=== PATIENT | female | born 1995 | race Caucasian/White ===

== ENCOUNTER 2020-11-14 17:16 | Outpatient (REF) | payer MEDICARE, SELFPAY | END 2020-11-14 17:17 | disposition home or self-care (01) | LOC: HO.LAB 17:16 | PROVIDERS: Visit Provider Nurse Practitioner Family | DX: R30.0 Dysuria (principal) | CPT/HCPCS: 87086 ==

== ENCOUNTER 2021-07-02 15:18 | Outpatient (REF) | payer OTHER, SELFPAY ==
[2021-07-02 16:32] LABS: Hematocrit 38.9 % (37.0-47.0); Hemoglobin 12.9 g/dl (12.0-16.0); Mean Corpuscular HGB Conc 33.2 g/dl (31.0-35.0); Mean Corpuscular Hemoglobin 31.3 pg (27.0-33.0); Mean Corpuscular Volume 94.4 fL (80.0-98.0); Mean Platelet Volume 10.6 fL (9.4-12.3); Platelet Count 154 X10*3/uL (160-400); Red Blood Count 4.12 X10*6/uL (4.20-5.50); Red Cell Distribution Width 12.6 % (11.0-16.0); White Blood Count 3.4 X10*3/uL (4.8-10.8)
[2021-07-02 16:58] LABS: Alanine Aminotransferase 52 U/L (0-31); Albumin Level 4.4 g/dL (3.5-5.0); Alkaline Phosphatase 89 U/L (39-117); Anion Gap 11 (12-20); Aspartate Amino Transferase 58 U/L (5-31); Blood Urea Nitrogen 11 mg/dL (9-16); Calcium 9.1 mg/dL (8.4-10.2); Carbon Dioxide 26 mmol/L (22-29); Chloride 103 mmol/L (96-108); Estimated Glomerular Filt Rate > 60; Glucose Random 98 mg/dL (60-115); Potassium 3.9 mmol/L (3.3-5.1); Sodium 136 mmol/L (135-145); Total Protein 7.8 g/dL (6.5-8.0)
[2021-07-02 17:10] LABS: Bilirubin Direct < 0.2 mg/dL (0.0-0.5); Bilirubin Total 0.2 mg/dL (0.0-1.0)
== END 2021-07-02 15:19 | disposition home or self-care (01) ==
LOC: HO.HMGCLDS 15:18
PROVIDERS: PCP Internal Medicine; Visit Provider Internal Medicine
DX: N39.0 Urinary tract infection, site not specified (principal); R30.0 Dysuria
CPT/HCPCS: 36415; 80048; 80076; 85027

== ENCOUNTER 2021-12-14 12:54 | Outpatient (REF) | payer OTHER, SELFPAY ==
[2021-12-14 17:52] LABS: CT PCR NOT DETECTED (Not Detect.); NG PCR NOT DETECTED (Not Detect.)
[2021-12-15 15:13] LABS: BV Int Neg Control Negative (Negative); BV Int Pos Control Positive (Positive)
== END 2021-12-14 12:55 | disposition home or self-care (01) ==
LOC: HO.LNP 12:54
PROVIDERS: Visit Provider Internal Medicine
DX: N89.8 Other specified noninflammatory disorders of vagina (principal); G40.909 Epilepsy, unspecified, not intractable, without status epilepticus; Z72.51 High risk heterosexual behavior; Z11.3 Encounter for screening for infections with a predominantly sexual mode of transmission; Z11.8 Encounter for screening for other infectious and parasitic diseases
CPT/HCPCS: 87480; 87491; 87510; 87591; 87660

== ENCOUNTER 2022-02-12 13:05 | Outpatient (REF) | payer OTHER, SELFPAY ==
[2022-02-12 18:42] LABS: CT PCR NOT DETECTED (Not Detect.); NG PCR NOT DETECTED (Not Detect.)
[2022-02-13 07:17] LABS: Syphilis Screen Nonreactive (Nonreactive)
[2022-02-13 07:58] LABS: HBS Num1 3.56 mIU/mL (0-7.99); HBc Num1 0.08 S/CO (0.00-0.79); HBsAGNum1 0.64 S/CO (0.00-0.99); HIV AB/AG Nonreactive (Nonreactive); HIV Num 1 0.06 S/CO (0.00-0.99); Hepatitis A Antibody IgM 0.22 Index (0-0.79); Hepatitis B Core Antibody Nonreactive (Nonreactive); Hepatitis B Surface Antigen Negative (Negative); ~HepC Num1 0.07 S/CO (0.00-0.79); ~Hepatitis A Antibody IgM Nonreactive (Nonreactive); ~Hepatitis B Surface Antibody NONREACTIVE (Nonreactive); ~Hepatitis C Antibody Nonreactive (Nonreactive)
[2022-02-13 13:31] LABS: BV Int Neg Control Negative (Negative); BV Int Pos Control Positive (Positive)
[2022-02-14 09:02] LABS: Herpes Simplex Type 1 IgG >58.00 index; Herpes Simplex Type 2 IgG <0.90 index
== END 2022-02-12 13:06 | disposition home or self-care (01) ==
LOC: HO.HMGCLDS 13:05
PROVIDERS: PCP Internal Medicine; Visit Provider Internal Medicine
DX: Z11.4 Encounter for screening for human immunodeficiency virus [HIV] (principal); Z11.3 Encounter for screening for infections with a predominantly sexual mode of transmission; N89.8 Other specified noninflammatory disorders of vagina; Z20.2 Contact with and (suspected) exposure to infections with a predominantly sexual mode of transmission; Z72.51 High risk heterosexual behavior
CPT/HCPCS: 36415; 86695; 86696; 86704; 86706; 86709; 86780; 86803; 87340; 87389; 87480; 87491; 87510; 87591; 87660

== ENCOUNTER 2022-03-23 13:23 | Outpatient (REF) | payer OTHER, SELFPAY ==
[2022-03-25 08:21] LABS: Syphilis Screen Nonreactive (Nonreactive)
[2022-03-25 08:59] LABS: HIV AB/AG Nonreactive (Nonreactive); HIV Num 1 0.05 S/CO (0.00-0.99)
== END 2022-03-23 13:24 | disposition home or self-care (01) ==
LOC: HO.HMGCLDS 13:23
PROVIDERS: PCP Internal Medicine; Visit Provider Physician Assistant
DX: N30.01 Acute cystitis with hematuria (principal); Z20.2 Contact with and (suspected) exposure to infections with a predominantly sexual mode of transmission
CPT/HCPCS: 36415; 86780; 87086; 87186; 87389

== ENCOUNTER → 2022-06-19 13:20 | Outpatient (BNVA) | payer OTHER, SELFPAY | PROVIDERS: PCP Internal Medicine; Visit Provider Surgery | DX: K64.9 Unspecified hemorrhoids (principal) | CPT/HCPCS: 46600; 99202 ==

== ENCOUNTER 2022-07-08 16:57 | Outpatient (REF) | payer OTHER, SELFPAY ==
[2022-07-08 18:00] LABS: Appearance Urine Turbid; Color Urine Dark Yellow; Glucose Urine UA Negative (Negative); Leukocyte Esterase Urine Trace (Negative); Nitrite Urine Negative (Negative); Specific Gravity - Urine 1.025 (1.005-1.025); UMIC TRIGGER UACC YES; Urine Blood Negative (Negative); Urine Ketones Trace mg/dL (Negative); Urine Protein 30 (1+) mg/dL (Neg-Trace)
[2022-07-08 18:26] LABS: Bacteria Urine 1+ (None Seen); Hyaline Casts Urine 0-2 /LPF (0-2); RBC Urine 0-2 /HPF (0-2); WBC Urine 0-5 /HPF (0-5)
[2022-07-09 05:35] LABS: CT PCR NOT DETECTED (Not Detect.); NG PCR NOT DETECTED (Not Detect.)
[2022-07-09 12:31] LABS: BV Int Neg Control Negative (Negative); BV Int Pos Control Positive (Positive)
== END 2022-07-08 16:58 | disposition home or self-care (01) ==
LOC: HO.LNP 16:57
PROVIDERS: Internal Medicine Medical Oncology; Physician Assistant; Visit Provider Nurse Practitioner Family
DX: N30.01 Acute cystitis with hematuria (principal); Z20.2 Contact with and (suspected) exposure to infections with a predominantly sexual mode of transmission
CPT/HCPCS: 0353U; 81001; 81003; 87480; 87510; 87660

== ENCOUNTER 2022-10-04 11:54 | Outpatient (REF) | payer OTHER, SELFPAY ==
[2022-10-04 13:53] LABS: MANUAL DIFF FLAG NO
[2022-10-04 14:05] LABS: Basophils Percent Auto 0.4 % (0-2); Eosinophils Absolute Auto 0.1 X10*3/uL (0.0-0.4); Hematocrit 39.7 % (37.0-47.0); Hemoglobin 13.3 g/dl (12.0-16.0); Imm Gran Abs Auto 0.04 X10*3/uL (0.00-0.03); Imm Gran Pct Auto 0.4 % (0.0-0.4); Lymphocytes Absolute Auto 2.1 X10*3/uL (1.2-4.9); Mean Corpuscular HGB Conc 33.5 g/dl (31.0-35.0); Mean Corpuscular Hemoglobin 31.5 pg (27.0-33.0); Mean Corpuscular Volume 94.1 fL (80.0-98.0); Mean Platelet Volume 10.7 fL (9.4-12.3); Monocytes Absolute Auto 0.6 X10*3/uL (0.1-1.2); Monocytes Percent Auto 6.1 % (2-11); Neutrophils Absolute Auto 6.4 x10*3/uL (2.0-8.3); Neutrophils Percent Auto 69.1 % (45-73); Platelet Count 192 X10*3/uL (160-400); Red Blood Count 4.22 X10*6/uL (4.20-5.50); Red Cell Distribution Width 12.3 % (11.0-16.0); White Blood Count 9.3 X10*3/uL (4.8-10.8)
[2022-10-04 14:22] LABS: Alanine Aminotransferase 11 U/L (0-31); Albumin Level 4.2 g/dL (3.5-5.0); Alkaline Phosphatase 84 U/L (39-117); Anion Gap 14 (12-20); Aspartate Amino Transferase 19 U/L (5-31); Bilirubin Total 0.3 mg/dL (0.0-1.0); Blood Urea Nitrogen 10 mg/dL (9-16); Carbon Dioxide 26 mmol/L (22-29); Chloride 101 mmol/L (96-108); Estimated Glomerular Filt Rate > 60; Glucose Random 127 mg/dL (60-115); Potassium 3.5 mmol/L (3.3-5.1); Sodium 137 mmol/L (135-145); Total Protein 7.3 g/dL (6.5-8.0)
[2022-10-04 14:39] LABS: TSH reflex Free T4 1.59 uIU/mL (0.32-4.0)
== END 2022-10-04 11:55 | disposition home or self-care (01) ==
LOC: HO.HMGCLDS 11:54
PROVIDERS: PCP Internal Medicine; Visit Provider Internal Medicine
DX: D69.6 Thrombocytopenia, unspecified (principal)
CPT/HCPCS: 36415; 80053; 84443; 85025

== ENCOUNTER 2022-11-29 09:05 | Outpatient (AMB) | payer OTHER, SELFPAY ==
[2022-11-29 09:11] VITALS: BP 128/76; PULSE 107; O2SAT 97; BMI 22.5
--- NOTE | 2022-11-29 09:11 | MHC.PC.OV ---
Vital Signs 11/29/22 09:11 Height 5 ft 3 in Weight 127 lb 2 oz BMI 22.5 BP 128/76 Blood Pressure Location Lt brachial Position Sitting Pulse 107 H Pulse Source Pulse Oximeter Pulse Oximetry (%) 97 Oxygen Delivery Method Room Air Intake Visit Reasons: per [place] Allergies prochlorperazine [From COMPAZINE] Allergy (Severe, Verified 11/29/22 09:12) AGITATION tramadol [TRAMADOL] Allergy (Intermediate, Verified 11/29/22 09:12) SEIZURES Compazine Allergy (Unknown, Verified 11/29/22 09:12) agitation, jittery Medication List - Last Reconciled 11/29/22 by Kalyani Benton MD clonazepam 0.5 mg PO BID 30 days methadone 200 mg PO DAILY ondansetron HCl 4 mg PO DAILY PRN quetiapine (Seroquel) 300 mg PO NEEDED Tobacco use date assessed: 11/29/22 Dental Screening Dental Screen Date: 11/29/22 Did you have a dental visit in the last 12 months?: Yes Did you have a dental problem in the last 6 months where you did not have access to dental care?: No Was dental information given to patient?: No HPI per [place] HPI Details Patient is 27-year-old female who was in [facility] early this month when she presented with fever sore throat feeling sick, generalize body malaise fatigue and fever of 102 at home. In emergency room she was afebrile with blood pressure of 105/86 WBC count of 20.1 lactate 2.8 which improved when repeated and mononucleosis antibody was positive Patient was treated with ceftriaxone Toradol any band Zofran and IV fluids along with Dilaudid and Haldol She was also given Solu-Medrol for tonsillar inflammation with good response She was also found to be positive for Streptococcus pharyngitis and was discharged on penicillin Her labs showed hemoglobin of 12.2 electrolytes were within normal range at discharge creatinine of 0.7 Albumin 4.1 Alk phosphatase is 87 lactate of [address] scan of abdomen and pelvis Which showed no acute intra-abdominal or intrapelvic process Patient is feeling back to her baseline at this time she is eating fine there is no nausea vomiting no abdominal pain there is no pain in her throat. On examination she does have enlarged tonsils which is a baseline for the patient. She is also due for her anxiety medications which I have sent for another month. Patient will return next month for her refill. [facility] Medical History Anxiety Depression Endometriosis determined by laparoscopy Fibromyalgia Methadone maintenance therapy patient Seizures Sleep apnea Suicidal ideation Tachycardia Surgical History History of appendectomy History of esophagogastroduodenoscopy (EGD) History of laparoscopy Family History Father Substance use disorder Mental health disorder Mother Fibromyalgia Herniation of intervertebral disc of thoracic region Endometriosis Social History Household Members Other:: mother Housing: Apartment Are you a primary director career to a significant other at home: No Do you presently have visiting nurse or other home services: No Alcohol intake: current Alcohol intake frequency: does not drink Patient Tobacco Use Status: Current someday Tobacco user Tobacco use type: Cigarette Cigarettes Per Day: 2 Years Smoked: 10 years Packs per year/per ci.00 e-Cigarette/Vaping Use: Currently Using service: No Current occupational status: unemployed and disabled Cognitive needs: No Hearing needs: No Vision needs: No Questionnaire Thrive Questionnaire Date Thrive assessed: 07/18/21 AUDIT C Alcohol Use Questionnaire (AUDIT-C) 1. How often do you have a drink containing alcohol?: Never 3. How often do you have six or more drinks on one occasion?: Never Total Score: 0 Score Reviewed/Action Taken: Yes SHEFALI-7 AMB Questionnaire SHEFALI-7 Date SHEFALI - 7 assessed: 09/04/22 Source: Developed by Drs. Jared Canela, Ayesha Cat, David Pedro and colleagues, with an educational adriel from [employer]. Review of Systems Const Denies chills and Denies fever(s) ENT Denies epistaxis and Denies nasal discharge Card Denies chest pain Resp Denies chest congestion, Denies cough and Denies hemoptysis GI Denies diarrhea and Denies nausea Skin/Breast Denies rash Neuro Reports no additional complaints Psych Reports no additional complaints Endo Reports no additional complaints Physical exam (Primary Care) Vital Signs: Last Vital Signs Pulse 107 H 11/29/22 09:11 BP 128/76 11/29/22 09:11 Pulse Ox 97 11/29/22 09:11 Oxygen Delivery Method Room Air 11/29/22 09:11 BMI result Body Mass Index 22.5 Tobacco/Smoking Status: Tobacco use Status Tobacco use date assessed 11/29/22 11/29/22 09:12 Patient Tobacco Use Status Current someday Tobacco 11/29/22 09:12 Tobacco use type Cigarette 11/29/22 09:12 e-Cigarette/Vaping Use Currently Using 11/29/22 09:12 Thrive Assessment: Date of Thrive Assessment Date Thrive assessed 07/18/21 11/29/22 09:12 Const General: cooperative, comfortable and no acute distress Orientation/consciousness: patient oriented x3 HENMT Head: Yes normocephalic Eyes General: appearance normal, both eyes and all related structures Neck Neck: Yes supple Resp Effort & Inspection: normal respiratory effort, no cough and no stridor Cardio Rhythm: regular rhythm Heart sounds: S1 normal heart sound present and S2 normal heart sound present Skin General skin exam: turgor normal Neuro General: patient oriented x3, tone normal and moves all extremities Extrem Right lower extremity: no edema Left lower extremity: no edema Assessment and Plan Assessment & Plan (1) Hospital discharge follow-up: Code(s): Z09 - Encounter for follow-up examination after completed treatment for conditions other than malignant neoplasm (2) Mononucleosis: Code(s): B27.90 - Infectious mononucleosis, unspecified without complication (3) Methadone dependence: Code(s): F11.20 - Opioid dependence, uncomplicated (4) Anxiety, generalized: Code(s): F41.1 - Generalized anxiety disorder (5) Recurrent major depression-severe: Code(s): F33.2 - Major depressive disorder, recurrent severe without psychotic features Qualifiers: Psychotic features: without psychotic features Qualified Code(s): F33.2 - Major depressive disorder, recurrent severe without psychotic features Plan Patient is 27-year-old female who was in [facility] early this month when she presented with fever sore throat feeling sick, generalize body malaise fatigue and fever of 102 at home. In emergency room she was afebrile with blood pressure of 105/86 WBC count of 20.1 lactate 2.8 which improved when repeated and mononucleosis antibody was positive Patient was treated with ceftriaxone Toradol any band Zofran and IV fluids along with Dilaudid and Haldol She was also given Solu-Medrol for tonsillar inflammation with good response She was also found to be positive for Streptococcus pharyngitis and was discharged on penicillin Her labs showed hemoglobin of 12.2 electrolytes were within normal range at discharge creatinine of 0.7 Albumin 4.1 Alk phosphatase is 87 lactate of [address] scan of abdomen and pelvis Which showed no acute intra-abdominal or intrapelvic process Patient is feeling back to her baseline at this time she is eating fine there is no nausea vomiting no abdominal pain there is no pain in her throat. On examination she does have enlarged tonsils which is a baseline for the patient. She is also due for her anxiety medications which I have sent for another month. Patient will return next month for her refill. Medications: Refilled clonazepam administer 30 minutes before bedtime 0.5 mg PO BID 60 tabs 0RF 30 days Kalyani Benton MD Discontinued ondansetron HCl 4 mg PO ONCE PRN 90 tabs 0RF nausea and vomiting 90 days R11.0 - Nausea Hannah Paul RN quetiapine (Seroquel) 300 mg PO DAILY 30 tabs 0RF 30 days Hannah Paul RN Coding Level of Care Code Est Pt Level 4 (50214) Diagnoses Hospital discharge follow-up Z09 Mononucleosis B27.90 Methadone dependence F11.20 Anxiety, generalized F41.1 Recurrent major depression-severe F33.2 Psychotic features: without psychotic features
== END 2022-11-29 10:06 | disposition home or self-care (01) ==
PROVIDERS: PCP Internal Medicine; Visit Provider Internal Medicine
DX: B27.90 Infectious mononucleosis, unspecified without complication (principal); F11.20 Opioid dependence, uncomplicated; F33.2 Major depressive disorder, recurrent severe without psychotic features; Z09 Encounter for follow-up examination after completed treatment for conditions other than malignant neoplasm; F41.1 Generalized anxiety disorder
CPT/HCPCS: 99214

== ENCOUNTER 2022-12-27 11:24 | Outpatient (AMB) | payer OTHER, SELFPAY ==
--- NOTE | 2022-12-27 11:31 | A.OFFPC_ITS ---
Vital Signs 12/27/22 11:33 Height 5 ft 3 in Weight 131 lb 2 oz BMI 23.2 BP 110/74 Blood Pressure Location Lt brachial Position Sitting Pulse 100 Pulse Source Pulse Oximeter Pulse Oximetry (%) 97 Oxygen Delivery Method Room Air Intake Visit Reasons: per [place] Allergies prochlorperazine [From COMPAZINE] Allergy (Severe, Verified 12/27/22 11:31) AGITATION tramadol [TRAMADOL] Allergy (Intermediate, Verified 12/27/22 11:31) SEIZURES Compazine Allergy (Unknown, Verified 12/27/22 11:31) agitation, jittery Medication List - Last Reconciled 12/27/22 by Kalyani Benton MD clonazepam 0.5 mg PO BID 30 days methadone 200 mg PO DAILY quetiapine (Seroquel) 300 mg PO NEEDED Tobacco use date assessed: 12/27/22 Dental Screening Dental Screen Date: 12/27/22 Did you have a dental visit in the last 12 months?: Yes Did you have a dental problem in the last 6 months where you did not have access to dental care?: No Was dental information given to patient?: No HPI per ak HPI Details Patient is 27-year-old female Patient is 6 weeks We discussed the side effect of Seroquel patient has cut down the dose to 100 mg She is also taking clonazepam only as needed now. She has OBGYN appointment coming up at [facility] next month. Patient have severe panic anxiety disorder she is already started to feel anxious by cutting the dose. Patient will talk to the OBGYN and need to get established with professor of kinesiology who specializes in medication management in . I have sent 100 mg of Seroquel and clonazepam 0.5 mg only 1 a day as needed. [facility] Medical History Anxiety Depression Endometriosis determined by laparoscopy Fibromyalgia Methadone maintenance therapy patient Seizures Sleep apnea Suicidal ideation Tachycardia Surgical History History of appendectomy History of esophagogastroduodenoscopy (EGD) History of laparoscopy Family History Father Substance use disorder Mental health disorder Mother Fibromyalgia Herniation of intervertebral disc of thoracic region Endometriosis Social History Household Members Other:: mother Housing: Apartment Are you a primary emergency care attendant to a significant other at home: No Do you presently have visiting nurse or other home services: No Alcohol intake: current Alcohol intake frequency: does not drink Patient Tobacco Use Status: Former Tobacco user Quit Date: 2021 Tobacco use type: Cigarette Cigarettes Per Day: 2 Years Smoked: 10 years e-Cigarette/Vaping Use: Currently Using service: No Current occupational status: unemployed and disabled Cognitive needs: No Hearing needs: No Vision needs: No Questionnaire Thrive Questionnaire Date Thrive assessed: 07/18/21 AUDIT C Alcohol Use Questionnaire (AUDIT-C) 1. How often do you have a drink containing alcohol?: Never 3. How often do you have six or more drinks on one occasion?: Never Total Score: 0 Score Reviewed/Action Taken: Yes SHEFALI-7 AMB Questionnaire SHEFALI-7 Date SHEFALI - 7 assessed: 09/04/22 Source: Developed by Drs. Jared Canela, Ayesha Cat, David Pedro and colleagues, with an educational adriel from [employer]. Review of Systems Const Denies chills and Denies fever(s) ENT Denies epistaxis and Denies nasal discharge Card Denies chest pain Resp Denies chest congestion, Denies cough and Denies hemoptysis GI Denies diarrhea and Denies nausea Skin/Breast Denies rash Neuro Reports no additional complaints Psych Reports no additional complaints Endo Reports no additional complaints Physical exam (Primary Care) Vital Signs: Last Vital Signs Pulse 100 12/27/22 11:33 BP 110/74 12/27/22 11:33 Pulse Ox 97 12/27/22 11:33 Oxygen Delivery Method Room Air 12/27/22 11:33 BMI result Body Mass Index 23.2 Tobacco/Smoking Status: Tobacco use Status Tobacco use date assessed 12/27/22 12/27/22 11:32 Patient Tobacco Use Status Former Tobacco user 12/27/22 11:32 Tobacco use type Cigarette 12/27/22 11:32 e-Cigarette/Vaping Use Currently Using 12/27/22 11:32 Thrive Assessment: Date of Thrive Assessment Date Thrive assessed 07/18/21 12/27/22 11:32 Const General: cooperative, comfortable and no acute distress Orientation/consciousness: patient oriented x3 HENMT Head: Yes normocephalic Eyes General: appearance normal, both eyes and all related structures Neck Neck: Yes supple Resp Effort & Inspection: normal respiratory effort, no cough and no stridor Cardio Rhythm: regular rhythm Heart sounds: S1 normal heart sound present and S2 normal heart sound present Skin General skin exam: turgor normal Neuro General: patient oriented x3, tone normal and moves all extremities Extrem Right lower extremity: no edema Left lower extremity: no edema Assessment and Plan Assessment & Plan (1) Methadone dependence: Code(s): F11.20 - Opioid dependence, uncomplicated (2) Anxiety, generalized: Code(s): F41.1 - Generalized anxiety disorder (3) Recurrent major depression-severe: Code(s): F33.2 - Major depressive disorder, recurrent severe without psychotic features Qualifiers: Psychotic features: without psychotic features Qualified Code(s): F33.2 - Major depressive disorder, recurrent severe without psychotic features (4) : Code(s): Z34.90 - Encounter for supervision of normal , unspecified, unspecified trimester Plan Patient is 27-year-old female Patient is 6 weeks We discussed the side effect of Seroquel patient has cut down the dose to 100 mg She is also taking clonazepam only as needed now. She has OBGYN appointment coming up at [facility] next month. Patient have severe panic anxiety disorder she is already started to feel anxious by cutting the dose. Patient will talk to the OBGYN and need to get established with professor of kinesiology who specializes in medication management in . I have sent 100 mg of Seroquel and clonazepam 0.5 mg only 1 a day as needed. Medications: New quetiapine (Seroquel) 100 mg PO BEDTIME 30 tabs 0RF Kalyani Benton MD Changed From clonazepam administer 30 minutes before bedtime 0.5 mg PO BID 30 days 60 tabs 0RF To clonazepam 0.5 mg PO ONCE PRN 30 tabs 0RF anxiety 30 days Kalyani Benton MD Discontinued ondansetron HCl 4 mg PO ONCE 90 days PRN 90 tabs 0RF nausea and vomiting R11.0 - Nausea quetiapine (Seroquel) 300 mg PO DAILY 30 tabs 0RF 30 days Hannah Paul RN Coding Level of Care Code Est Pt Level 4 (51774) Diagnoses Methadone dependence F11.20 Anxiety, generalized F41.1 Recurrent major depression-severe F33.2 Psychotic features: without psychotic features Z34.90
[2022-12-27 11:33] VITALS: BP 110/74; PULSE 100; O2SAT 97; BMI 23.2
== END 2022-12-27 12:07 | disposition home or self-care (01) ==
PROVIDERS: PCP Internal Medicine; Visit Provider Internal Medicine
DX: F11.20 Opioid dependence, uncomplicated (principal); F41.1 Generalized anxiety disorder; F33.2 Major depressive disorder, recurrent severe without psychotic features; Z33.1 Pregnant state, incidental
CPT/HCPCS: 99214

== ENCOUNTER 2023-01-28 09:48 | Outpatient (AMB) | payer OTHER, SELFPAY ==
--- NOTE | 2023-01-28 09:51 | A.OFFPC_ITS ---
Vital Signs 01/28/23 09:54 Height 5 ft 3 in Weight 132 lb 2 oz BMI 23.4 BP 116/72 Blood Pressure Location Lt brachial Position Sitting Pulse 100 Pulse Source Pulse Oximeter Pulse Oximetry (%) 99 Oxygen Delivery Method Room Air Intake Visit Reasons: Per [place] Allergies prochlorperazine [From COMPAZINE] Allergy (Severe, Verified 01/28/23 09:55) AGITATION tramadol [TRAMADOL] Allergy (Intermediate, Verified 01/28/23 09:55) SEIZURES Compazine Allergy (Unknown, Verified 01/28/23 09:55) agitation, jittery Medication List - Last Reconciled 01/28/23 by Kalyani Benton MD clonazepam 0.5 mg PO ONCE PRN 30 days methadone 200 mg PO DAILY quetiapine (Seroquel) 100 mg PO BEDTIME Tobacco use date assessed: 01/28/23 Dental Screening Dental Screen Date: 01/28/23 Did you have a dental visit in the last 12 months?: Yes Did you have a dental problem in the last 6 months where you did not have access to dental care?: No Was dental information given to patient?: Patient has dentist HPI Per [place] HPI Details Patient is 27-year-old female, she is 10 weeks and is established with OBGYN. She came in today to discuss on going treatment for her severe depression and anxiety Patient says that she discussed with OBGYN and they are referring her to a specialist who deals with these medications during . She was also discussed side effect of this medication on the fetus. Patient says that she was told that it will be better if she stays on the medication if she feels stable depression [place]. Patient would like to continue medication until she get established with new provider who can monitor the side effect of these medication on the fetus. She said that she will discuss with them if they can continue the prescription otherwise she will continue coming here monthly. She is on Seroquel 200 mg and clonazepam 0.5 mg b.i.d.. Script sent. Patient is to follow-up in 1 month [facility] Medical History Tachycardia Seizures Sleep apnea Depression Fibromyalgia Suicidal ideation Methadone maintenance therapy patient Anxiety Endometriosis determined by laparoscopy Surgical History History of esophagogastroduodenoscopy (EGD) History of appendectomy History of laparoscopy Family History Father Substance use disorder Mental health disorder Mother Fibromyalgia Herniation of intervertebral disc of thoracic region Endometriosis Social History Household Members Other:: mother Housing: Apartment Are you a primary primary health care nurse to a significant other at home: No Do you presently have visiting nurse or other home services: No Alcohol intake: current Alcohol intake frequency: does not drink Patient Tobacco Use Status: Former Tobacco user Quit Date: 2021 Tobacco use type: Cigarette Cigarettes Per Day: 2 Years Smoked: 10 years e-Cigarette/Vaping Use: Currently Using service: No Current occupational status: unemployed and disabled Cognitive needs: No Hearing needs: No Vision needs: No Questionnaire PHQ-9 Over the last 2 weeks, how often have you been bothered by any of the following problems? 1. Little interest or pleasure in doing things: nearly every day 2. Feeling down, depressed, or hopeless: several days 3. Trouble falling or staying asleep, or sleeping too much: more than half the days 4. Feeling tired or having little energy: more than half the days 5. Poor appetite or overeating: nearly every day 6. Feeling bad about yourself - or that you are a failure or have let yourself or your family down: not at all 7. Trouble concentrating on things, such as reading the newspaper or watching television: not at all 8. Moving or speaking so slowly that other people could have noticed. Or the opposite - being so fidgety or restless that you have been moving around a lot more than usual: not at all 9. Thoughts that you would be better off or of hurting yourself in some way: not at all Total score: 11 Depression Screening Interpretation: Negative 79258 - PHQ-9 Billing: Yes Source: Developed by Drs. Jared Canela, Ayesha Cat, David Pedro and colleagues, with an educational adriel from [employer]. Thrive Questionnaire Date Thrive assessed: 01/28/23 I am a: Patient What is your living situation today?: I have a steady place to live Within the past 12 months, did the food you bought not last and you didn't have the money to get more?: Never true Within the past 12 months, did you worry whether your food would run out before you got money to buy more?: Never true Do you have trouble paying for medicines?: No Do you have trouble getting transportation to medical appointments?: No Do you have trouble paying your heating and electricity bill?: No Do you have trouble taking care of your child, family member or friend?: No Do you have trouble with day-to-day activities such as bathing, preparing meals, shopping, managing finances, etc.?: Yes Are you currently unemployed and looking for a job?: No Are you interested in more education?: No AUDIT C Alcohol Use Questionnaire (AUDIT-C) 1. How often do you have a drink containing alcohol?: Never 3. How often do you have six or more drinks on one occasion?: Never Total Score: 0 Score Reviewed/Action Taken: Yes SHEFALI-7 AMB Questionnaire SHEFALI-7 Date SHEFALI - 7 assessed: 01/28/23 Feeling nervous, anxious, or on edge: 3 = Nearly every day Not being able to stop or control worryin = Nearly every day Worrying too much about different things: 3 = Nearly every day Trouble relaxin = Nearly every day Being so restless that it is hard to sit still: 2 = More than half the days Becoming easily annoyed or irritable: 3 = Nearly every day Feeling afraid as if something awful might happen: 1 = Several days Total SHEFALI-7 score (0-4 normal; 5-9 mild; 10-14 moderate; 15-21 severe): 18 Source: Developed by Drs. Jared Canela, Ayesha Cat, David Pedro and colleagues, with an educational adriel from [employer]. SHEFALI-7 Assessment Billing SHEFALI-7 Assessment Tool: SHEFALI-7 Assessment 29203 Review of Systems Const Denies chills and Denies fever(s) ENT Denies epistaxis and Denies nasal discharge Card Denies chest pain Resp Denies chest congestion, Denies cough and Denies hemoptysis GI Denies diarrhea Skin/Breast Denies rash Neuro Reports no additional complaints Psych Reports no additional complaints Endo Reports no additional complaints Physical exam (Primary Care) Vital Signs: Last Vital Signs Pulse 100 01/28/23 09:54 BP 116/72 01/28/23 09:54 Pulse Ox 99 01/28/23 09:54 Oxygen Delivery Method Room Air 01/28/23 09:54 BMI result Body Mass Index 23.4 Tobacco/Smoking Status: Tobacco use Status Tobacco use date assessed 01/28/23 01/28/23 09:55 Patient Tobacco Use Status Former Tobacco user 01/28/23 09:53 Tobacco use type Cigarette 01/28/23 09:53 e-Cigarette/Vaping Use Currently Using 01/28/23 09:53 PHQ-9: PHQ-9 Score PHQ-9: Total score 11 01/28/23 10:09 Depression Screening Interpretation: Negative Thrive Assessment: Date of Thrive Assessment Date Thrive assessed 01/28/23 01/28/23 10:09 Const General: cooperative, comfortable and no acute distress Orientation/consciousness: patient oriented x3 HENMT Head: Yes normocephalic Eyes General: appearance normal, both eyes and all related structures Neck Neck: Yes supple Resp Effort & Inspection: normal respiratory effort, no cough and no stridor Cardio Rhythm: regular rhythm Heart sounds: S1 normal heart sound present and S2 normal heart sound present Skin General skin exam: turgor normal Neuro General: patient oriented x3, tone normal and moves all extremities Extrem Right lower extremity: no edema Left lower extremity: no edema Assessment and Plan Assessment & Plan (1) Recurrent major depression-severe: Code(s): F33.2 - Major depressive disorder, recurrent severe without psychotic features Qualifiers: Psychotic features: without psychotic features Qualified Code(s): F33.2 - Major depressive disorder, recurrent severe without psychotic features (2) Methadone dependence: Code(s): F11.20 - Opioid dependence, uncomplicated (3) Anxiety, generalized: Code(s): F41.1 - Generalized anxiety disorder (4) : Code(s): Z34.90 - Encounter for supervision of normal , unspecified, unspecified trimester Qualifiers: Weeks of gestation: 10 weeks Qualified Code(s): Z3A.10 - 10 weeks gestation of Plan Patient is 27-year-old female, she is 10 weeks and is established with OBGYN. She came in today to discuss on going treatment for her severe depression and anxiety Patient says that she discussed with OBGYN and they are referring her to a specialist who deals with these medications during . She was also discussed side effect of this medication on the fetus. Patient says that she was told that it will be better if she stays on the medication if she feels stable depression [place]. Patient would like to continue medication until she get established with new provider who can monitor the side effect of these medication on the fetus. She said that she will discuss with them if they can continue the prescription otherwise she will continue coming here monthly. She is on Seroquel 200 mg and clonazepam 0.5 mg b.i.d.. Script sent. Patient is to follow-up in 1 month Medications: Changed From quetiapine (Seroquel) 100 mg PO BEDTIME 30 tabs 0RF To quetiapine (Seroquel) 200 mg (2 x 100 mg) PO BEDTIME 60 tabs 0RF From clonazepam 0.5 mg PO ONCE 30 days PRN 30 tabs 0RF anxiety To clonazepam 0.5 mg PO BID PRN 60 tabs 0RF anxiety 30 days Coding Level of Care Code Est Pt Level 4 (42290) Diagnoses Severe episode of recurrent major depressive disorder, without psychotic features F33.2 Psychotic features: without psychotic features Methadone dependence F11.20 Anxiety, generalized F41.1 10 weeks gestation of Z3A.10 Weeks of gestation: 10 weeks Additional Codes SHEFALI-7 Assessment Billing - SHEFALI-7 Assessment Tool: SHEFALI-7 Assessment 40891 ([id number])
[2023-01-28 09:54] VITALS: BP 116/72; PULSE 100; O2SAT 99; BMI 23.4
== END 2023-01-28 10:05 | disposition home or self-care (01) ==
PROVIDERS: PCP Internal Medicine; Visit Provider Internal Medicine
DX: F33.2 Major depressive disorder, recurrent severe without psychotic features (principal); F11.20 Opioid dependence, uncomplicated; F41.1 Generalized anxiety disorder
CPT/HCPCS: 99214

== ENCOUNTER 2023-05-10 08:59 | Outpatient (AMB) | payer OTHER, SELFPAY ==
[2023-05-10 09:05] VITALS: BP 94/60; PULSE 96; TEMP 37.1; O2SAT 97; BMI 26.4
--- NOTE | 2023-05-10 09:05 | MHC.OFFWIV ---
Intake Vital Signs 05/10/23 09:05 Height 5 ft 3 in Weight 149 lb BMI 26.4 BP 94/60 Blood Pressure Location Rt brachial Position Sitting Pulse 96 Pulse Source Pulse Oximeter Temp 98.7 F Temp Source Oral Pulse Oximetry (%) 97 Oxygen Delivery Method Room Air Intake Visit Reasons: EST/sinus inf(lobby masked) Intake Note: Pt is here today c/o sinus congestion 1week ? sinus infection pt is 24 weeks into her Patient Tobacco Use Status: Former Tobacco user Quit Date: 2021 Allergies prochlorperazine [From COMPAZINE] Allergy (Severe, Verified 05/10/23 09:09) AGITATION tramadol [TRAMADOL] Allergy (Intermediate, Verified 05/10/23 09:09) SEIZURES Compazine Allergy (Unknown, Verified 05/10/23 09:09) agitation, jittery Do you need a note to return to daycare/school/sports/work: No HPI HPI Comments History of Present Illness Details This is a 27 year past medical history of opiate use disorder currently maintained on methadone, fibromyalgia, anxiety who is currently 24 weeks in her 1st presenting for evaluation and a sensation of fluid behind her left ear that has been evolving over the past 1 week. The patient denies having any fevers, chills, ear pain, sore throat, cough or shortness of breath. Patient states that her boyfriend was recently diagnosed with sinusitis. Patient has not taken any [id number] medication for treatment of her symptoms. [facility] Medical History Tachycardia Seizures Sleep apnea Depression Fibromyalgia Suicidal ideation Methadone maintenance therapy patient Anxiety Endometriosis determined by laparoscopy Surgical History History of esophagogastroduodenoscopy (EGD) History of appendectomy History of laparoscopy Family History Father Substance use disorder Mental health disorder Mother Fibromyalgia Herniation of intervertebral disc of thoracic region Endometriosis Social History Household Members Other:: mother Housing: Apartment Are you a primary career technical supervisor to a significant other at home: No Do you presently have visiting nurse or other home services: No Alcohol intake: current Alcohol intake frequency: does not drink Patient Tobacco Use Status: Former Tobacco user Quit Date: 2021 Tobacco use type: Cigarette Cigarettes Per Day: 2 Years Smoked: 10 years e-Cigarette/Vaping Use: Currently Using service: No Current occupational status: unemployed and disabled Cognitive needs: No Hearing needs: No Vision needs: No Review of Systems Const All systems reviewed & are unremarkable except as noted in HPI and below Reports no additional complaints Eyes Reports no additional complaints ENT Reports as per HPI, Denies otalgia, Denies facial pain, Denies post nasal drip, Denies sore throat and Reports other (sinus congestion) Card Reports no additional complaints Resp Reports no additional complaints Endo Reports no additional complaints Chay/Lymph Reports no additional complaints Physical Exam Vital Signs: Last Vital Signs Temp 98.7 F 05/10/23 09:05 Pulse 96 05/10/23 09:05 BP 94/60 05/10/23 09:05 Pulse Ox 97 05/10/23 09:05 Oxygen Delivery Method Room Air 05/10/23 09:05 BMI result Body Mass Index 26.4 afebrile Const Other: Gravid. General: cooperative, healthy appearing, comfortable, no acute distress, well developed, alert and awake; No lethargic Nutritional Appearance: other (gravid) Orientation/consciousness: No lethargic HEENT Head: Yes normal to inspection Ears: hearing grossly normal bilaterally, external ears normal, TM's abnormal bilaterally (bulging bilaterally without erythema; no fluid level noted bilaterally) and EAC's normal General nose exam: Normal external nose present Face and sinus: Yes normal facial exam, Yes sinuses nontender and No sinus tenderness Mouth: Normal oral and palatal mucosa present, oropharynx normal and moist mucous membranes Teeth and gingiva: dentition normal and gingiva normal Throat: Yes posterior oropharynx normal and No postnasal drainage Eyes General: appearance normal, both eyes and all related structures Conjunctivae: conjunctivae normal Sclerae: sclerae normal Corneas: corneas normal Pupils: Equal, round and reactive pupils present EOM: EOMs intact bilaterally Resp Effort & Inspection: normal respiratory effort, no audible wheezes and no respiratory distress Auscultation: clear to auscultation bilaterally Cardio Rate: regular rate Rhythm: regular rhythm Neuro Cranial nerves: Yes Equal, round and reactive pupils present Psych Appearance: grossly normal Mental Status: mental status grossly normal Insight: Good insight present (Psych) Judgement: Good judgement present (Psych) Assessment & Plan Assessment & Plan (1) Acute sinusitis: Code(s): J01.90 - Acute sinusitis, unspecified Plan: Nasal sinus spray/irrigation, increase clear fluids daily, Tylenol as needed for discomfort. Patient will follow-up with her primary care provider within 5-7 days if her symptoms are not improving. Coding Level of Care Code Est Pt Level 3 (35600) Diagnoses Acute sinusitis J01.90 Time Spent (min) 20
== END 2023-05-10 09:49 | disposition home or self-care (01) ==
LOC: HO.HMGWI 08:59
PROVIDERS: PCP Internal Medicine
DX: J01.90 Acute sinusitis, unspecified (principal)
CPT/HCPCS: 99213

== ENCOUNTER → 2023-10-28 09:30 | Outpatient (BNV) | payer OTHER, SELFPAY | PROVIDERS: Visit Provider Psychiatry & Neurology Psychiatry | DX: F34.89 Other specified persistent mood disorders (principal); F53.0 Postpartum depression; F41.3 Other mixed anxiety disorders; F43.10 Post-traumatic stress disorder, unspecified; F44.4 Conversion disorder with motor symptom or deficit; F12.90 Cannabis use, unspecified, uncomplicated; F11.20 Opioid dependence, uncomplicated | CPT/HCPCS: 90792; 99213; 99214; 99499 ==

== ENCOUNTER 2023-11-14 09:15 | Outpatient (RCR) | payer OTHER, SELFPAY ==
[2023-10-28 11:35] VITALS: BP 113/78; PULSE 60; TEMP 36.7
[2023-10-28 11:44] VITALS: BMI 24.3
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
--- NOTE | 2023-10-30 16:12 | HO.IOP ---
Client's case has been opened and reviewed in treatment team.
--- NOTE | 2023-11-06 21:52 | P.PNPSP_ITS ---
Subjective Subjective Date of Service: 11/06/23 Reason For Visit: MDD,OUD Interim History: Patient seen for follow up. She reports no issues with her current medications. She continues on Lamictal and Seroquel. Lamictal was due to be increased to 50 mg daily which she took this morning with no issues. She is scheduled to bump up to 75 mg on 11/19 and 100 mg on 12/03. She curtly responds that her mood is I'm fine , and immediately directs discussion toward complaints about ADHD symptoms I have problems with ADD, ADHD... I haven't gotten the diagnosis but I'm all over I cant concentrate. When things are chaotic I freeze up. I jump all over the place. When I over- explain, people stop listening to me and it's making me feel bad about myself. It's starting to affect me . I attempt to explore these issues further but patient was difficult to engage and pushes back with direct inquiries about being put on a stimulant. When I attempt to explain that there are number of issues that I would like to explore further regarding these attentional and neurocognitive complaints, also invite further discussion around how her mood has been and noting that she is only just arriving at 50 mg of Lamictal, explaining that mood regulation is an important factor in overall ability to regulate attention and furthermore any considerations for treating ADHD often start with examining mood, especially because stimulant medications have the potential to further complicate/exacerbate underlying mood problems if not well managed. Patient gets up from her seat calmly but sounding irritated, stating This is annoying. I thought you would help me with this. I'm done . I attempt to re-engage her also invite her to relay how these problems are impacting her or whether opening up the discussion to see how things are going in general in her life would be helpful, but she just shakes her head and walks out without responding further. She was seen heading back toward the kitchen. I check in with staff to make sure there weren't any acute concerns or any situations/conflicts/events that occurred in group today, and to inform staff of my encounter with the patient. Medication Compliance: Yes Side effects from medications: No Attending Groups: Yes Review of Systems Acute medical concerns: No Mental Status Exam Mental Status Exam Narrative: Alert, oriented, in no acute distress. Calm, but minimally cooperative and difficult to engage. No psychomotor agitation or neurovegetative retardation. Eye contact intact. Mood fine , affect constricted, irritable edge without notable anxiety, lability or tearfulness. Speech normal. Thought process linear, coherent. Thought content related to stressors, no mention of hopelessness or SI, intention, urge or plan. No mention of any aggressive ideation or HI. No paranoia or delusional content elicited. No evidence of psychosis. Insight and judgment - fair but adequate Diagnostics Vital Signs (24Hr): BMI result Body Mass Index 24.3 Assessment & Plan Assessment & Plan (1) Other specified persistent mood disorders: Status: Acute Code(s): F34.89 - Other specified persistent mood disorders (2) depression: Status: Acute Code(s): F53.0 - depression (3) Other mixed anxiety disorders: Status: Acute Code(s): F41.3 - Other mixed anxiety disorders (4) PTSD (post-traumatic stress disorder): Status: Acute Code(s): F43.10 - Post-traumatic stress disorder, unspecified (5) Functional neurological symptom disorder (conversion disorder), with abnormal movement: Status: Acute Code(s): F44.4 - Conversion disorder with motor symptom or deficit Assessment and Plan: psychogenic seizures (reportedly comorbid epileptic seizures ruled out) (6) Cannabis use disorder: Status: Acute Code(s): F12.90 - Cannabis use, unspecified, uncomplicated (7) Methadone maintenance therapy patient: Status: Acute Code(s): F11.20 - Opioid dependence, uncomplicated Plan Continue in IOP continue Lamictal 50 mg/d (continue titration - patient states she still has an adequate supply of Lamictal) continue Seroquel 50 mg BID continue other regular medications? Routine lab work ordered EKG, routine for baseline QTc for medication considerations UDS as indicated Continue to monitor as per protocol Patient educated on: diagnosis, medication risk/benefits and substance abuse Informed Consent: understands Reason for contiued partial hosp. stay Substantial Risk for: inability to function and med/psych decompensation Certification I certify that the patient needs IOP Services for a minimum of 9 hours per week of therapeutic services. I certify the patient is experiencing symptoms of such intensity that they are unable to be safely treated in a less intensive setting and would otherwise require admission to a more intensive level of care. Total time managing care of this patient today __30__ minutes. Discharge Plan Discharge Attending provider: Danielle Esparza Medications: New clonazepam 1 mg tablet 1 mg PO TID Qty: 24 0RF No Action clonazepam 1 mg tablet 1 mg PO TID PRN (Reason: anxiety) lamotrigine 25 mg tablet 25 mg PO DAILY chlorpromazine 50 mg tablet 50 mg PO BID PRN (Reason: anxiety/agitation) quetiapine [Seroquel] 50 mg tablet 50 mg PO BID PRN (Reason: anxiety) methadone 10 mg/5 mL Solution 90 mg PO QPM Rx Instructions: Takes in the evening. methadone 10 mg/5 mL Solution 105 mg PO DAILY Rx Instructions: Takes in the morning. Stand Alone Forms: Patient Portal Discharge page Patient Education: Mood Disorders (DC) Print Language: Citizen Of [place]
--- NOTE | 2023-11-10 12:45 | P.EN_ITS ---
Event Note Date of Service: 11/10/23 Event Note: pt reports she needs refill on clonazepam; she ran out and had no refills; She will have her aunt drive her to [facility] today; a 6 day supply sent to pharmacy clonazepam 1mg TID prn anxiety #24 sent to pharmacy; pt denies any other complaints/discomfort Time Spent With Patient Time: Total time managing care of this patient today __15__ minutes.
--- NOTE | 2023-11-11 13:47 | HO.PHPPROGNO ---
Subjective Subjective Date of Service: 11/11/23 Reason For Visit: MDD,OUD Interim History: pt reports having a better day than yesterday; she states its been 3 days on higher dose of lamictal - no side effects; discussed need to follow up with PCP and neurology re: psychogenic seizures and migraines; she will call PCP. no SI or HI. Medication Compliance: Yes Side effects from medications: No Attending Groups: Yes Review of Systems Acute medical concerns: No Mental Status Exam Mental Status Exam Patient Appearance: Well Grooomed and Appropriate Patient Orientation: Person, Place, Time and Situation Level of Consciousness: Awake and Alert Patient Behavior: Appropriate and Cooperative Mood Description: Calm and Appropriate Affect Description: Calm Patient Cognition Impaired: No Ability to Follow Directions: Good Speech Pattern: Clear and Coherent Memory Description: Intact Hallucinations: None Delusions: Not Present Thought Process: Intact and Goal Oriented Thought Content: positive for Goal Oriented Judgement: Fair Diagnostics Vital Signs (24Hr): BMI result Body Mass Index 24.3 Assessment & Plan Assessment & Plan (1) Functional neurological symptom disorder (conversion disorder), with abnormal movement: Status: Acute Code(s): F44.4 - Conversion disorder with motor symptom or deficit (2) PTSD (post-traumatic stress disorder): Status: Acute Code(s): F43.10 - Post-traumatic stress disorder, unspecified (3) depression: Status: Acute Code(s): F53.0 - depression (4) Other mixed anxiety disorders: Status: Acute Code(s): F41.3 - Other mixed anxiety disorders Plan continue medications as is. encourage pt to call pcp no change to medication today Patient educated on: diagnosis, medication risk/benefits and therapeutic strategies Reason for contiued partial hosp. stay Substantial Risk for: harm to self and rapid decompensation Certification I certify that partial hospital treatment is medically necessary due to the symptoms and problems resulting from the patient's mental illness and the failure to treat the patient at the partial hospital level of care would likely result in the patient requiring inpatient psychiatric care which could not be prevented at a less intensive level of care. Total time managing care of this patient today ____ minutes. Discharge Plan Discharge Attending provider: Danielle Esparza Medications: New clonazepam 1 mg tablet 1 mg PO TID Qty: 24 0RF No Action clonazepam 1 mg tablet 1 mg PO TID PRN (Reason: anxiety) lamotrigine 25 mg tablet 25 mg PO DAILY chlorpromazine 50 mg tablet 50 mg PO BID PRN (Reason: anxiety/agitation) quetiapine [Seroquel] 50 mg tablet 50 mg PO BID PRN (Reason: anxiety) methadone 10 mg/5 mL Solution 90 mg PO QPM Rx Instructions: Takes in the evening. methadone 10 mg/5 mL Solution 105 mg PO DAILY Rx Instructions: Takes in the morning. Stand Alone Forms: Patient Portal Discharge page Patient Education: Mood Disorders (DC) Print Language: Kisw[place]ili
--- NOTE | 2023-11-12 17:04 | HO.IOP ---
[facility] staff member met with Haley to help with scheduling appointments with her OP therapist and med provider. We reached out to [facility] where her OP therapist is but unfortunately had to leave a message. Haley is awaiting a call back to schedule an appointment. We then contacted her med provider, in which her next appointment is scheduled December 11, 2023 at 11 AM.
--- NOTE | 2023-11-14 11:09 | PC.NURSE ---
Per PHP staff Haley is not scheduled to attend PHP today.
--- NOTE | 2023-11-18 15:07 | HO.IOP ---
IOP staff member reached out to Haley due to her not showing for program. Haley informed IOP staff member that she was not feeling well and noted that her son is in the hospital and she is uncertain to when or if she will be returning to program. IOP staff member was receptive and assessed SI, plan or intent. Haley disclosed no concerns around SI, plan or intent.
--- NOTE | 2023-11-19 09:35 | HO.IOP ---
Haley did not show or call the program, therefore a safety check was preformed. Haley disclosed that her son is still in the hospital and she is uncertain to when he will be discharged. Haley stated she wouldn't be able to return until her son is discharged from [facility]. IOP staff member was receptive and stated that we will discharge her satisfactory at this point in time and will have her contact Chasity to return to the program once she is able to. Haley was in agreement. IOP staff member was collecting discharge information but was unable to obtain PHQ-9 due to Haley expressing she does not have time cause she is trying to leave for the hospital. IOP staff member explored if there would be a better time. Haley stated 3 PM. IOP staff member was receptive. Haley also reported no concerns around SI, plan or intent.
--- NOTE | 2023-11-20 23:37 | PM.EVENT ---
Event Note Date of Service: 12/08/23 Event Note: Patient requesting refills on lamotrigine, clonazepam and quetiapine. Refills efaxed to pharmacy. Patient informed. Time Spent With Patient Time: Total time managing care of this patient today _10___ minutes.
== END 2023-11-14 23:59 | disposition home or self-care (01) ==
LOC: HO.IOP 09:15
PROVIDERS: Visit Provider Psychiatry & Neurology Psychiatry
DX: F44.4 Conversion disorder with motor symptom or deficit (principal); F43.10 Post-traumatic stress disorder, unspecified; F53.0 Postpartum depression; F41.3 Other mixed anxiety disorders; F34.89 Other specified persistent mood disorders; F12.90 Cannabis use, unspecified, uncomplicated; F11.20 Opioid dependence, uncomplicated; Z79.899 Other long term (current) drug therapy
CPT/HCPCS: 90791; H0015; S9480

== ENCOUNTER 2023-12-30 14:37 | Outpatient (AMB) | payer OTHER, SELFPAY ==
--- NOTE | 2023-12-30 14:38 | AM.OFFWIN_ITS ---
Intake Vital Signs 12/30/23 14:39 Height 5 ft 3 in Weight 140 lb BMI 24.8 BP 120/70 Blood Pressure Location Rt brachial Position Sitting Pulse 75 Pulse Source Pulse Oximeter Temp 98.2 F Temp Source Oral Pulse Oximetry (%) 97 Intake Visit Reasons: EP- Dizziness, fever, headaches, throat, PND Intake Note: Patient here for headache, runny nose, post nasal drip, lethargic and area about neck has been sore which has been going on for about. Patient Tobacco Use Status: Former Tobacco user Allergies prochlorperazine [From COMPAZINE] Allergy (Severe, Verified 12/30/23 14:42) AGITATION tramadol [TRAMADOL] Allergy (Intermediate, Verified 12/30/23 14:42) SEIZURES Compazine Allergy (Unknown, Verified 12/30/23 14:42) agitation, jittery Do you need a note to return to daycare/school/sports/work: No HPI HPI Comments History of Present Illness Details 28 Y/O female patient who presents to [facility] walk in clinic with c/o URI symptoms. COUNTS INCLUDE 234 BEDS AT THE [facility] Medical History (Updated 11/02/23 @ 01:37 by Danielle Esparza MD) Tachycardia Seizures Sleep apnea Depression Fibromyalgia Suicidal ideation Methadone maintenance therapy patient Anxiety Endometriosis determined by laparoscopy Surgical History History of esophagogastroduodenoscopy (EGD) History of appendectomy History of laparoscopy Family History Father Substance use disorder Mental health disorder Mother Fibromyalgia Herniation of intervertebral disc of thoracic region Endometriosis Social History Household Members: Family and Children Household Members Other:: Mother, grandmother, and her son Housing: Apartment Are you a primary customer care team coach to a significant other at home: No Do you presently have visiting nurse or other home services: No Alcohol intake: current Alcohol intake frequency: does not drink Patient Tobacco Use Status: Former Tobacco user Tobacco use type: Cigarette Cigarettes Per Day: 2 Years Smoked: 10 years e-Cigarette/Vaping Use: Currently Using service: No Current occupational status: unemployed and disabled Cognitive needs: No Hearing needs: No Vision needs: No Review of Systems Const All systems reviewed & are unremarkable except as noted in HPI and below Physical Exam Vital Signs: Last Vital Signs Temp 98.2 F 12/30/23 14:39 Pulse 75 12/30/23 14:39 BP 120/70 12/30/23 14:39 Pulse Ox 97 12/30/23 14:39 BMI result Body Mass Index 24.8 Const General: cooperative and no acute distress Orientation/consciousness: patient oriented x3 HEENT Head: Yes normocephalic Ears: external ears normal and TM's normal bilaterally General nose exam: Normal nasal mucous membranes and turbinates present Face and sinus: Yes sinuses nontender Mouth: moist mucous membranes Throat: Yes posterior oropharynx normal Resp Effort & Inspection: normal respiratory effort Auscultation: clear to auscultation bilaterally, no crackles, no rales, no rhonchi and no wheezes Cardio Heart sounds: S1 normal heart sound present and S2 normal heart sound present Skin Other: Skin Pale, warm and dry. Neuro General: patient oriented x3, gait normal and moves all extremities Psych Speech and movement: Normal speech and movement present Results AMB Urinalysis, Automated UA Leukoctes 15 Steve/uL Last Edit by Elin Lund [facility] on 12/30/23 15:0 9 UA Nitrite Negative Last Edit by Elin Lund [facility] on 12/30/23 15:09 UA Urobilinogen 0.2 mg/dL Last Edit by Elin Lund [facility] on 12/30/23 15:09 UA Protein 15 mg/dL Last Edit by Elin Lund [facility] on 12/30/23 15:09 UA pH 6.0 Last Edit by Elin Lund [facility] on 12/30/23 15:09 UA Blood 0 Pritesh/uL Last Edit by Elin Lund [facility] on 12/30/23 15:09 UA Specific [place] 1.025 Last Edit by Elin Lund [facility] on 12/30/23 15:09 UA Ketone Positive Last Edit by Elin Lund [facility] on 12/30/23 15:09 UA Bilirubin 1 mg/dL Last Edit by Elin Lund [facility] on 12/30/23 15:09 UA Glucose 0 mg/dL Last Edit by MAX Bal on 12/30/23 15:09 Results Reviewed Results Reviewed: Laboratory Last Values Urine pH (Auto) 6.0 12/30/23 15:08 Specific [place] (Auto) 1.025 12/30/23 15:08 Urine Protein (Auto) 15 mg/dL 12/30/23 15:08 Glucose (UA)(Auto) 0 mg/dL 12/30/23 15:08 Urine Ketones (Auto) Positive 12/30/23 15:08 Urine Blood (Auto) 0 Pritesh/uL 12/30/23 15:08 Urine Nitrite (Auto) Negative 12/30/23 15:08 Urine Bilirubin (Auto) 1 mg/dL 12/30/23 15:08 Urine Urobilinogen (Auto) 0.2 mg/dL 12/30/23 15:08 Leukocyte Esterase (Auto) 15 Steve/uL 12/30/23 15:08 Assessment & Plan Assessment & Plan (1) Upper respiratory infection: Code(s): J06.9 - Acute upper respiratory infection, unspecified Qualifiers: URI type: unspecified viral URI Qualified Code(s): J06.9 - Acute upper respiratory infection, unspecified Plan: SARs ordered OTC cold remedies Acetaminophen for pain relief Rest and hydrate well. Orders: Orders SARS-CoV2/FLU/RSV Today J06.9 - Acute upper respiratory infection, unspecified AMB Urinalysis Automated Today Z13.9 - Encounter for screening, unspecified Coding Level of Care Code Est Pt Level 3 (57105) Diagnoses Viral upper respiratory tract infection J06.9 URI type: unspecified viral URI Time Spent (min) 15
[2023-12-30 14:39] VITALS: BP 120/70; PULSE 75; TEMP 36.8; O2SAT 97; BMI 24.8
== END 2023-12-30 15:13 | disposition home or self-care (01) ==
PROVIDERS: PCP Internal Medicine; Visit Provider Nurse Practitioner Family
DX: J06.9 Acute upper respiratory infection, unspecified (principal)
CPT/HCPCS: 81003; 99213

== ENCOUNTER 2023-12-30 15:12 | Outpatient (REF) | payer OTHER, SELFPAY ==
[2023-12-30 18:08] LABS: Influenza A PCR NEGATIVE (Negative); Influenza B PCR NEGATIVE (Negative); Resp Syncy Virus RNA Qual PCR NEGATIVE (Negative); SARS COV2 PCR INHOUSE POSITIVE (Negative)
== END 2023-12-30 15:13 | disposition home or self-care (01) ==
LOC: HO.LAB 15:12
PROVIDERS: Visit Provider Nurse Practitioner Family
DX: J06.9 Acute upper respiratory infection, unspecified (principal)
CPT/HCPCS: 0241U

== ENCOUNTER 2024-01-30 09:20 | Outpatient (AMB) | payer OTHER, SELFPAY ==
--- NOTE | 2024-01-30 09:24 | AM.OFFWIN_ITS ---
Intake Vital Signs 01/30/24 09:26 Height 5 ft 3 in Weight 120 lb BMI 21.3 BP 102/80 Blood Pressure Location Lt brachial Position Sitting Pulse 102 H Pulse Source Pulse Oximeter Temp 98.5 F Temp Source Oral Pulse Oximetry (%) 98 Oxygen Delivery Method Room Air Intake Visit Reasons: EP-uti Intake Note: pt c/o urinary urgency, burning, cramping. Started this morning Patient Tobacco Use Status: Former Tobacco user Allergies prochlorperazine [From COMPAZINE] Allergy (Severe, Verified 01/30/24 09:35) AGITATION tramadol [TRAMADOL] Allergy (Intermediate, Verified 01/30/24 09:35) SEIZURES Compazine Allergy (Unknown, Verified 01/30/24 09:35) agitation, jittery Medication List - Last Reconciled 01/30/24 by Kalyani Benton MD chlorpromazine 50 mg PO BID PRN clonazepam 1 mg PO TID clonazepam 1 mg PO TID PRN 14 days lamotrigine 75 mg (3 x 25 mg) PO DAILY 14 days methadone 90 mg PO QPM methadone 105 mg PO DAILY nitrofurantoin monohyd/m-cryst 100 mg (Macrobid) 100 mg PO Q12H 5 days quetiapine (Seroquel) 50 mg PO BID PRN 14 days HPI EP-uti HPI Details Patient is 28-year-old female came in today to be evaluated for possible bladder infection Her symptoms started this morning with dysuria and frequency Now suprapubic pressure There is no back pain There is no nausea vomiting fever chills Urine analysis shows signs infection with leuk esterase 3+ She also shows slight amount of glucose Patient was instructed to repeat urine test again in the lab after finishing the antibiotics. We will send in urine culture as well. [facility] Medical History Tachycardia Seizures Sleep apnea Depression Fibromyalgia Suicidal ideation Methadone maintenance therapy patient Anxiety Endometriosis determined by laparoscopy Surgical History History of esophagogastroduodenoscopy (EGD) History of appendectomy History of laparoscopy Family History Father Substance use disorder Mental health disorder Mother Fibromyalgia Herniation of intervertebral disc of thoracic region Endometriosis Social History Household Members: Family and Children Household Members Other:: Mother, grandmother, and her son Housing: Apartment Are you a primary skin care consultant to a significant other at home: No Do you presently have visiting nurse or other home services: No Alcohol intake: current Alcohol intake frequency: does not drink Patient Tobacco Use Status: Former Tobacco user Tobacco use type: Cigarette Cigarettes Per Day: 2 Years Smoked: 10 years e-Cigarette/Vaping Use: Currently Using service: No Current occupational status: unemployed and disabled Cognitive needs: No Hearing needs: No Vision needs: No Review of Systems Const All systems reviewed & are unremarkable except as noted in HPI and below Physical Exam Vital Signs: Last Vital Signs Temp 98.5 F 01/30/24 09:26 Pulse 102 H 01/30/24 09:26 BP 102/80 01/30/24 09:26 Pulse Ox 98 01/30/24 09:26 Oxygen Delivery Method Room Air 01/30/24 09:26 BMI result Body Mass Index 21.3 Const General: no acute distress Orientation/consciousness: patient oriented x3 Eyes General: appearance normal, both eyes and all related structures Resp Effort & Inspection: normal respiratory effort and able to speak in complete sentences Neuro General: patient oriented x3 Psych Mental Status: mental status grossly normal Assessment & Plan Assessment & Plan (1) Acute cystitis with hematuria: Code(s): N30.01 - Acute cystitis with hematuria Plan Patient is 28-year-old female came in today to be evaluated for possible bladder infection Her symptoms started this morning with dysuria and frequency Now suprapubic pressure There is no back pain There is no nausea vomiting fever chills Urine analysis shows signs infection with leuk esterase 3+ She also shows slight amount of glucose Patient was instructed to repeat urine test again in the lab after finishing the antibiotics. We will send in urine culture as well Orders: Orders Urine Culture Today N30. - Acute cystitis with hematuria UA CC w/rflx Micro + Cult Today . - Acute cystitis with hematuria Medications: New nitrofurantoin monohyd/m-cryst 100 mg (Macrobid) must administer with a meal/food 100 mg PO Q12H 5 days 10 caps 0RF Coding Level of Care Code Est Pt Level 3 (91776) Diagnoses Acute cystitis with hematuria N30.01
[2024-01-30 09:26] VITALS: BP 102/80; PULSE 102; TEMP 36.9; O2SAT 98; BMI 21.3
== END 2024-01-30 10:00 | disposition home or self-care (01) ==
PROVIDERS: PCP Internal Medicine; Visit Provider Internal Medicine
DX: N30.01 Acute cystitis with hematuria (principal)

== ENCOUNTER 2024-01-30 09:20 | Outpatient (REF) | payer OTHER, SELFPAY ==
[2024-01-30 13:42] LABS: Appearance Urine Hazy; Color Urine Orange; Specific Gravity - Urine 1.025 (1.005-1.025); UMIC TRIGGER UACC YES; Urine Blood Negative (Negative)
[2024-01-30 14:42] LABS: Bacteria Urine 1+ (None Seen); Hyaline Casts Urine 0-2 /LPF (0-2); RBC Urine 0-2 /HPF (0-2); UACC Culture Trigger YES
== END 2024-01-30 09:21 | disposition home or self-care (01) ==
LOC: HO.LAB 09:20
PROVIDERS: PCP Internal Medicine; Visit Provider Internal Medicine
DX: N30.01 Acute cystitis with hematuria (principal)
CPT/HCPCS: 81001; 81003; 87086; 99212

== ENCOUNTER 2024-02-12 11:39 | Outpatient (AMB) | payer OTHER, SELFPAY ==
--- NOTE | 2024-02-12 12:01 | MHC.OFFWIV ---
Intake Vital Signs 02/12/24 12:03 Height 5 ft 3 in Weight 121 lb BMI 21.4 BP 102/72 Blood Pressure Location Lt brachial Position Sitting Pulse 68 Pulse Source Pulse Oximeter Pulse Oximetry (%) 98 Oxygen Delivery Method Room Air Intake Visit Reasons: EP ?'s about abx, confirmation Intake Note: Patient here for frequent urination and also nausea. Patient Tobacco Use Status: Former Tobacco user Allergies prochlorperazine [From COMPAZINE] Allergy (Severe, Verified 02/12/24 12:04) AGITATION tramadol [TRAMADOL] Allergy (Intermediate, Verified 02/12/24 12:04) SEIZURES Compazine Allergy (Unknown, Verified 02/12/24 12:04) agitation, jittery Do you need a note to return to daycare/school/sports/work: No HPI HPI Comments History of Present Illness Details Patient is a 28-year-old female coming in to confirm and also confirm the antibiotic she was given was okay to take during . She states she was diagnosed with a UTI on 01/29 and given Macrobid which she took in full, she states her urinary symptoms have resolved. But she tells me she tested for on the 4th day of the antibiotic and she tested positive so she stopped taking the antibiotic. [facility] Medical History Tachycardia Seizures Sleep apnea Depression Fibromyalgia Suicidal ideation Methadone maintenance therapy patient Anxiety Endometriosis determined by laparoscopy Surgical History History of esophagogastroduodenoscopy (EGD) History of appendectomy History of laparoscopy Family History Father Substance use disorder Mental health disorder Mother Fibromyalgia Herniation of intervertebral disc of thoracic region Endometriosis Social History Household Members: Family and Children Household Members Other:: Mother, grandmother, and her son Housing: Apartment Are you a primary home health care worker to a significant other at home: No Do you presently have visiting nurse or other home services: No Alcohol intake: current Alcohol intake frequency: does not drink Patient Tobacco Use Status: Former Tobacco user Tobacco use type: Cigarette Cigarettes Per Day: 2 Years Smoked: 10 years e-Cigarette/Vaping Use: Currently Using service: No Current occupational status: unemployed and disabled Cognitive needs: No Hearing needs: No Vision needs: No Review of Systems Const All systems reviewed & are unremarkable except as noted in HPI and below Physical Exam Vital Signs: Last Vital Signs Pulse 68 02/12/24 12:03 BP 102/72 02/12/24 12:03 Pulse Ox 98 02/12/24 12:03 Oxygen Delivery Method Room Air 02/12/24 12:03 BMI result Body Mass Index 21.4 Const General: cooperative, healthy appearing, comfortable and no acute distress Orientation/consciousness: patient oriented x3 HEENT Head: Yes normal to inspection Ears: hearing grossly normal bilaterally General nose exam: Normal external nose present Face and sinus: Yes normal facial exam Neck Neck: Yes normal visual inspection, Yes trachea midline and Yes supple Resp Effort & Inspection: normal respiratory effort and able to speak in complete sentences Skin General skin exam: no rashes or lesions noted Neuro General: patient oriented x3 Psych Appearance: grossly normal Speech and movement: Normal speech and movement present Attitude: cooperative Thought process: Normal thought process present Insight: Good insight present (Psych) Judgement: Good judgement present (Psych) Assessment & Plan Assessment & Plan (1) Positive test: Code(s): Z32.01 - Encounter for test, result positive Plan: As per up-to-date, Macrobid is only contraindicated and weeks 38-42 so patient should be fine have not taken this medication January 29 to February 03. Plan See above Coding Level of Care Code Est Pt Level 3 (52922) Diagnoses Positive test Z32.01
[2024-02-12 12:03] VITALS: BP 102/72; PULSE 68; O2SAT 98; BMI 21.4
== END 2024-02-12 12:27 | disposition home or self-care (01) ==
PROVIDERS: PCP Internal Medicine; Visit Provider Physician Assistant
DX: Z13.9 Encounter for screening, unspecified (principal); Z32.01 Encounter for pregnancy test, result positive

== ENCOUNTER → 2024-02-12 11:39 | Outpatient (BNVA) | payer OTHER, SELFPAY | PROVIDERS: PCP Internal Medicine | DX: Z32.01 Encounter for pregnancy test, result positive (principal) | CPT/HCPCS: 81003; 81025; 99212 ==

== ENCOUNTER 2024-03-31 11:57 | Outpatient (AMB) | payer OTHER, SELFPAY ==
--- NOTE | 2024-03-31 11:58 | A.OFFPC_ITS ---
Vital Signs 03/31/24 12:02 Weight 110 lb BP 128/84 Blood Pressure Location Rt brachial Position Sitting Pulse 135 H Pulse Source Pulse Oximeter Pulse Oximetry (%) 98 Oxygen Delivery Method Room Air Intake Visit Reasons: follow up/anxiety Allergies prochlorperazine [From COMPAZINE] Allergy (Severe, Verified 02/12/24 12:04) AGITATION tramadol [TRAMADOL] Allergy (Intermediate, Verified 02/12/24 12:04) SEIZURES Compazine Allergy (Unknown, Verified 02/12/24 12:04) agitation, jittery Medication List - Last Reconciled 03/31/24 by Kalyani Benton MD chlorpromazine 50 mg PO BID PRN clonazepam 1 mg PO TID clonazepam 1 mg PO TID PRN 14 days lamotrigine 75 mg (3 x 25 mg) PO DAILY 14 days methadone 90 mg PO QPM methadone 105 mg PO DAILY quetiapine (Seroquel) 50 mg PO BID PRN 14 days Tobacco use date assessed: 01/28/23 Dental Screening Dental Screen Date: 01/28/23 HPI follow up/anxiety HPI Details Patient is 28-year-old female who was last seen January last year The patient is a 28-year-old female presenting with concerns regarding her psychiatric medication management following a recent termination. Last time patient seen by me was January last She was diagnosed with depression after the of her now [id number]-vuc-n-xycu-esili-fyp child. However she suffers from severe depression and anxiety for years The patient had been receiving medications including Seroquel, lamotrigine, and clonazepam from her psychiatrist. However, after becoming again, she informed her psychiatrist of her decision to terminate the . Consequently, her psychiatrist expressed discomfort continuing the clonazepam prescription due to the , despite being informed of the planned . The patient reports difficulty in obtaining her necessary medications, as her psychiatrist has not returned her calls, and she encountered an almost- seizure situation due to inconsistent medication intake. She requires a refill of her medications to manage her symptoms adequately. Family Status: The patient has a [id number]-i-vbmc-[id number]-[id number] baby. - Family Planning: Recently underwent pr egnancy termination. - Current Medications: Seroquel, lamotri gine, and clonazepam. Plan Depression: Continue current medications, Seroquel and lamotrigine. Adjust lamotrigine dosage as needed. Reassess psychiatric support and consider referral to a new psychiatrist. Patient is instructions Continue taking Seroquel as prescribed. - Adjust lamotrigine dosage to 100 mg fr om 75 mg as she is taking 3 tablets of 25 at this time. - Seek assistance from the behavioral [facility] coordinator for psychiatric care. - Return for follow-up in a month or edel ner if a new psychiatrist is not secured. - Ensure regular medication intake to pr event seizure episodes. Discussion During the consultation, I discussed the patient's current medication regimen and the challenges she's facing with her psychiatric care. The patient was advised to continue taking Seroquel and lamotrigine for her depression and to adjust her lamotrigine dosage per instructions. I recommended reaching out to our behavioral health coordinator to explore the possibility of finding a new psychiatrist for ongoing care needs. Additionally, we addressed the importance of consistent medication intake to prevent potential seizure episodes. The patient was informed about the necessity to return for a follow-up if unable to secure a new psychiatrist within a month. [facility] Medical History Tachycardia Seizures Sleep apnea Depression Fibromyalgia Suicidal ideation Methadone maintenance therapy patient Anxiety Endometriosis determined by laparoscopy Surgical History History of esophagogastroduodenoscopy (EGD) History of appendectomy History of laparoscopy Family History Father Substance use disorder Mental health disorder Mother Fibromyalgia Herniation of intervertebral disc of thoracic region Endometriosis Social History Household Members: Family and Children Household Members Other:: Mother, grandmother, and her son Housing: Apartment Are you a primary patient care to a significant other at home: No Do you presently have visiting nurse or other home services: No Alcohol intake: current Alcohol intake frequency: does not drink Patient Tobacco Use Status: Former Tobacco user Tobacco use type: Cigarette Cigarettes Per Day: 2 Years Smoked: 10 years e-Cigarette/Vaping Use: Currently Using service: No Current occupational status: unemployed and disabled Cognitive needs: No Hearing needs: No Vision needs: No Questionnaire Thrive Questionnaire Date Thrive assessed: 01/28/23 SHEFALI-7 AMB Questionnaire SHEFALI-7 Date SHEFALI - 7 assessed: 01/28/23 Source: Developed by Drs. Jared Canela, Ayesha Cat, David Pedro and colleagues, with an educational adriel from [employer]. Review of Systems Const Denies chills and Denies fever(s) ENT Denies epistaxis and Denies nasal discharge Card Denies chest pain Resp Denies chest congestion, Denies cough and Denies hemoptysis GI Denies diarrhea and Denies nausea Skin/Breast Denies rash Neuro Reports no additional complaints Psych Reports no additional complaints Endo Reports no additional complaints Physical exam (Primary Care) Vital Signs: Last Vital Signs Pulse 135 H 03/31/24 12:02 BP 128/84 03/31/24 12:02 Pulse Ox 98 03/31/24 12:02 Oxygen Delivery Method Room Air 03/31/24 12:02 Tobacco/Smoking Status: Tobacco use Status Tobacco use date assessed 01/28/23 03/31/24 11:59 Patient Tobacco Use Status Former Tobacco user 03/31/24 11:59 Tobacco use type Cigarette 03/31/24 11:59 e-Cigarette/Vaping Use Currently Using 03/31/24 11:59 Thrive Assessment: Date of Thrive Assessment Date Thrive assessed 01/28/23 03/31/24 11:59 Const General: cooperative, comfortable and no acute distress Orientation/consciousness: patient oriented x3 HENMT Head: Yes normocephalic Eyes General: appearance normal, both eyes and all related structures Neck Neck: Yes supple Resp Effort & Inspection: normal respiratory effort, no cough and no stridor Cardio Heart sounds: S1 normal heart sound present and S2 normal heart sound present Skin General skin exam: turgor normal Neuro General: patient oriented x3, tone normal and moves all extremities Extrem Right lower extremity: no edema Left lower extremity: no edema Coding Level of Care Code Est Pt Level 4 (11565) Complex EM visit Add On G2211 Diagnoses Severe episode of recurrent major depressive disorder, without psychotic features F33.2 Psychotic features: without psychotic features Panic anxiety syndrome F41.0 Tachycardia R00.0 Methadone dependence F11.20 Nonintractable epilepsy without status epilepticus, unspecified epilepsy type G40.909 Epilepsy type: unspecified Intractability: not intractable Status epilepticus: without status epilepticus PTSD (post-traumatic stress disorder) F43.10 Assessment & Plan Assessment & Plan (1) Recurrent major depression-severe: Code(s): F33.2 - Major depressive disorder, recurrent severe without psychotic features Category: Medical Qualifiers: Psychotic features: without psychotic features Qualified Code(s): F33.2 - Major depressive disorder, recurrent severe without psychotic features (2) Panic anxiety syndrome: Code(s): F41.0 - Panic disorder [episodic paroxysmal anxiety] Category: Medical (3) Tachycardia: Code(s): R00.0 - Tachycardia, unspecified Category: Medical (4) Methadone dependence: Code(s): F11.20 - Opioid dependence, uncomplicated Category: Medical (5) Epilepsy: Code(s): G40.909 - Epilepsy, unspecified, not intractable, without status epilepticus Category: Medical Qualifiers: Epilepsy type: unspecified Intractability: not intractable Status epilepticus: without status epilepticus Qualified Code(s): G40.909 - Epilepsy, unspecified, not intractable, without status epilepticus (6) PTSD (post-traumatic stress disorder): Code(s): F43.10 - Post-traumatic stress disorder, unspecified Category: Medical Plan Patient is 28-year-old female who was last seen January last year The patient is a 28-year-old female presenting with concerns regarding her psychiatric medication management following a recent termination. Last time patient seen by me was January last year She was diagnosed with depression after the of her now mzfnn-tew-i-ssty-nmfad-irt child. However she suffers from severe depression and anxiety for years The patient had been receiving medications including Seroquel, lamotrigine, and clonazepam from her psychiatrist. However, after becoming again, she informed her psychiatrist of her decision to terminate the . Con sequently, her psychiatrist expressed discomfort continuing the clonazepam prescription due to the , despite being informed of the planned . The patient reports difficulty in obtaining her necessary medications, as her psychiatrist has not returned her calls, and she encountered an almost- seizure situation due to inconsistent medication intake. She requires a refill of her medications to manage her symptoms adequately. Family Status: The patient has a [id number] baby. - Family Planning: Recently underwent termination. - Current Medications: Seroquel, lamotrigine, and clonazepam. Plan Depression: Continue current medications, Seroquel and lamotrigine. Adjust lamotrigine dosage as needed. Reassess psychiatric support and consider referral to a new psychiatrist. Patient is instructions Continue taking Seroquel as prescribed. - Adjust lamotrigine dosage to 100 mg from 75 mg as she is taking 3 tablets of 25 at this time. - Seek assistance from the behavioral health coordinator for psychiatric care. - Return for follow-up in a month or sooner if a new psychiatrist is not secured. - Ensure regular medication intake to prevent seizure episodes. Discussion During the consultation, I discussed the patient's current medication regimen and the challenges she's facing with her psychiatric care. The patient was advised to continue taking Seroquel and lamotrigine for her depression and to adjust her lamotrigine dosage per instructions. I recommended reaching out to our behavioral health coordinator to explore the possibility of finding a new psychiatrist for ongoing care needs. Additionally, we addressed the importance of consistent medication intake to prevent potential seizure episodes. The patient was informed about the necessity to return for a follow-up if unable to secure a new psychiatrist within a month. Medications: Changed From lamotrigine 75 mg (3 x 25 mg) PO DAILY 14 days 42 tabs 0RF depressive disorder To lamotrigine 100 mg PO DAILY 90 days 90 tabs 0RF depressive disorder From quetiapine (Seroquel) 50 mg PO BID 14 days PRN 30 tabs 0RF anxiety To quetiapine (Seroquel) 50 mg PO BID 90 days PRN 180 tabs 0RF anxiety From clonazepam 1 mg PO TID 14 days PRN 42 tabs 0RF anxiety To clonazepam 1 mg PO TID 30 days PRN 90 tabs 0RF anxiety Refilled clonazepam 1 mg PO TID 24 tabs 0RF
[2024-03-31 12:02] VITALS: BP 128/84; PULSE 135; O2SAT 98
== END 2024-03-31 12:37 | disposition home or self-care (01) ==
LOC: HO.HMCC 11:57
PROVIDERS: PCP Internal Medicine; Visit Provider Internal Medicine
DX: R00.0 Tachycardia, unspecified (principal); F33.2 Major depressive disorder, recurrent severe without psychotic features; F11.20 Opioid dependence, uncomplicated; G40.909 Epilepsy, unspecified, not intractable, without status epilepticus; F41.0 Panic disorder [episodic paroxysmal anxiety]; F43.10 Post-traumatic stress disorder, unspecified

== ENCOUNTER → 2024-03-31 11:57 | Outpatient (BNVA) | payer OTHER, SELFPAY | PROVIDERS: PCP Internal Medicine; Visit Provider Internal Medicine | DX: F33.2 Major depressive disorder, recurrent severe without psychotic features (principal); F41.0 Panic disorder [episodic paroxysmal anxiety]; R00.0 Tachycardia, unspecified; F11.20 Opioid dependence, uncomplicated; G40.909 Epilepsy, unspecified, not intractable, without status epilepticus; F43.10 Post-traumatic stress disorder, unspecified | CPT/HCPCS: 99212 ==

== ENCOUNTER 2024-06-01 08:22 | Outpatient (AMB) | payer OTHER, SELFPAY ==
[2024-06-01 08:24] VITALS: BP 120/76; PULSE 87; O2SAT 99; BMI 19.0
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
--- OUTSIDE RECORDS SUMMARY | 2024-06-01 08:30 | XMS_ITS | Continuity of Care Document ---
Author Organization [facility] Address [address] [place] [phone]- Support Name Relationship Address Phone KAREN, LUIS [...] Unknown Un available Care Team Providers Care Outside Collector Name Role Phone Chetan TREVIZO, Asma Primary Care Physician Encounter [facility] [place] Date(s): 04/26/24 - 05/26/24 [facility] [address] [address] Encounter Type: Triage Allergies, Adverse Reactions, Alerts [...] 07/23/07 GIVEN 8Admin Note: boostrix--state 9Admin Note: [facility] Medications clonazePAM 1 mg oral tablet 1 tablet = 1 mg, By Mouth, 3 times a day, # 90 tablet, 1 Refills, Maintenance, 08/19/23 8:43:00 AM EDT, Tablet, [facility] 3, Partial fill upon patient request if [...] Refills, Maintenance, 02/19/24 5:20:00 PM EDT, Tablet, [facility] #[id number], Partial fill upon patient request if the [...] Maintenance, 08/28/23 6:22:00 AM EDT, DIS Tablet, [facility] #[id number], Partial fill upon patient request if the [...] Maintenance, 09/18/23 4:26:00 PM EDT, ER Tablet, [facility] #[id number], Partial fill upon patient request if the [...] Safety Implantable Status Assigning Authority Unknown Unknown 10300-6 1 Unknown 07/10/24 Unknown Unknown Active Unknown Patient Care team information Care Team Personnel Name: Kash TREVIZO, Ramana Nation Position: [facility] Physician - Pediatrics Member Role: Lifetime Consulting Physician Address: [address] [place] [address] [place] [address]- Telecom: Name: Chetan TREVIZO, Kalyani Position: Reference Physician Member Role: PCP Address: [address] [place] [address]- Telecom: Name: Toshia Cazares RN Position: [facility] OB RN Member Role: Primary Care Nurse Name: Myles Woodard MD Position: [facility] Physician - Behavioral Health Member Role: Lifetime Consulting Physician Address: [address] [place] [address]- Telecom: Care Team Related Persons Name: LO HOOK Name: LUIS FELIPE JONES Name: KATALINA CASTELLANO Insurance Providers Guarantor name: NAVJOT HOOK Health Plan Information #: [address] [facility] CARE ALLIANCE/ONE CARE Member Number: NA Policy Number: NA Group Number: NA
--- OUTSIDE RECORDS SUMMARY | 2024-06-01 08:30 | XMS_ITS | Continuity of Care Document ---
Author Organization [facility] Address [address] [place] [address]- Support Name Relationship Address Phone KAREN, LUIS [...] Unknown Un available Care Team Providers Care Claim Manager Name Role Phone Chetan TREVIZO, Asma Primary Care Physician [place] [facility] [place] - 05/26/24 [facility] [address] [address] Encounter Type: Triage Allergies, Adverse Reactions, [...] 07/23/07 GIVEN 8Admin Note: boostrix--state 9Admin Note: [facility] Medications clonazePAM 1 mg oral tablet 1 tablet = 1 mg, By Mouth, 3 times a day, # 90 tablet, 1 Refills, Maintenance, 08/19/23 8:43:00 AM EDT, Tablet, [facility] 3, Partial fill upon patient [...] Refills, Maintenance, 02/19/24 5:20:00 PM EDT, Tablet, [facility][id number], Partial fill upon patient request if the [...] Maintenance, 08/28/23 6:22:00 AM EDT, DIS Tablet, [facility][id number], Partial fill upon patient request if the [...] Maintenance, 09/18/23 4:26:00 PM EDT, ER Tablet, [facility][id number], Partial fill upon patient request if the [...] Safety Implantable Status Assigning Authority Unknown Unknown [id number] 1 Unknown 07/10/24 Unknown Unknown Active Unknown Patient Care team information Care Team Personnel Name: Kash TREVIZO, Ramana Nation Position: [facility] Physician - Pediatrics Member Role: Lifetime Consulting Physician Address: [address] [place] [address] [place] [address]- Telecom: Name: Chetan TREVIZO, Kalyani Position: Reference Physician Member Role: PCP Address: [address] [place] [address]- Telecom: Name: Toshia Cazares RN Position: [facility] OB RN Member Role: Primary Care Nurse Name: Myles Woodard MD Position: [facility] Physician - Behavioral Health Member Role: Lifetime Consulting Physician Address: [address] [place] [address]- Telecom: Care Team Related Persons Name: LO HOOK Name: LUIS FELIPE JONES Name: KATALINA CASTELLANO Insurance Providers Guarantor name: NAVJOT HOOK Health Plan Information #: 1 Payer: [facility] CARE ALLIANCE/ONE CARE Member Number: NA Policy Number: NA Group Number: NA
--- OUTSIDE RECORDS SUMMARY | 2024-06-01 08:30 | XMS_ITS | Continuity of Care Document ---
Author Organization [facility] Address [address] [place] [address]- Support Name Relationship Address Phone KAREN, LUIS [...] MONSTER, LO child Unknown Unavailable KAREN, LUIS EFLIPE Personal Relationship Unknown Un available KAREN, LUIS [...] Unknown Un available Care Team Providers Care Seaweed Harvester Name Role Phone Chetan TREVIZO, Asma Primary Care Physician Encounter [facility] [place] Date(s): 04/21/24 - 05/21/24 [facility] [address] [address] Encounter Type: Triage Allergies, Adverse Reactions, Alerts [...] GIVEN 8Admin Note: boostrix--state 9Admin Note: [facility] Medications clonazePAM 1 mg oral tablet 1 tablet = 1 mg, By Mouth, 3 times a day, # 90 tablet, 1 Refills, Maintenance, 08/19/23 8:43:00 AM EDT, Tablet, [facility] 3, Partial fill upon patient request if [...] Refills, Maintenance, 02/19/24 5:20:00 PM EDT, Tablet, [facility] #[id number], Partial fill upon patient request if the [...] a schedule II opioid drug. Start Date: 8/31/21 Status: Ordered Repeat number: 1 ondansetron 4 mg oral tablet, disintegrating 1 tablet = 4 mg, By Mouth, Every 8 hours, PRN as needed for nausea/vomiting, # 30 tablet, 1 Refills, Maintenance, 08/28/23 6:22:00 AM EDT, DIS Tablet, [facility] #[id number], Partial fill upon patient request if the [...] Maintenance, 09/18/23 4:26:00 PM EDT, ER Tablet, [facility] #[id number], Partial fill upon patient request if the [...] Safety Implantable Status Assigning Authority Unknown Unknown [id number] 1 Unknown 07/10/24 Unknown Unknown Active Unknown Patient Care team information Care Team Personnel Name: Kash TREVIZO, Ramana Nation Position: [facility] Physician - Pediatrics Member Role: Lifetime Consulting Physician Address: [address] [place] [address] [place] [address]- Telecom: Name: Chetan TREVIZO, Kalyani Position: Reference Physician Member Role: PCP Address: [address] [place] [address]- Telecom: Name: Toshia Cazares RN Position: [facility] OB RN Member Role: Primary Care Nurse Name: Myles Woodard MD Position: [facility] Physician - Behavioral Health Member Role: Lifetime Consulting Physician Address: [address] [place] [address]- Telecom: Care Team Related Persons Name: LO HOOK Name: LUIS FELIPE JONES Name: KATALINA CASTELLANO Insurance Providers Guarantor name: NAVJOT HOOK Health Plan Information #: 1 Payer: [facility] CARE ALLIANCE/ONE CARE Member Number: NA Policy Number: NA Group Number: NA
--- OUTSIDE RECORDS SUMMARY | 2024-06-01 08:30 | XMS_ITS | Continuity of Care Document ---
Author Organization [facility] Address [address] [place] [address]- Support Name Relationship Address Phone KAREN, LUIS [...] LUIS FELIPE Personal Relationship Unknown Un available OMNSTER NAVJOT Personal Relationship Unknown Unavai lable MONSTER, [...] Unknown Un available Care Team Providers Care Deep Submergence Vehicle Operator Name Role Phone Chetan TREVIZO, Asma Primary Care Physician [place] [facility] [place] - 05/26/24 [facility] [address] [address] Encounter Type: [...] 07/23/07 GIVEN 8Admin Note: boostrix--state 9Admin Note: [facility] Medications clonazePAM 1 mg oral tablet 1 tablet = 1 mg, By Mouth, 3 times a day, # 90 tablet, 1 Refills, Maintenance, 08/19/23 8:43:00 AM EDT, Tablet, [facility] 3, Partial fill upon patient request [...] Refills, Maintenance, 02/19/24 5:20:00 PM EDT, Tablet, [facility] #[id number], Partial fill upon patient request if the [...] Maintenance, 08/28/23 6:22:00 AM EDT, DIS Tablet, [facility] #[id number], Partial fill upon patient request if the [...] Maintenance, 09/18/23 4:26:00 PM EDT, ER Tablet, [facility] #[id number], Partial fill upon patient request if the [...] Date Device Type Site Insertion Device Intrauterine Otot Grijalva MD 03/19/24 Unknown Uterus Device Identifier Serial Number Lot or Batch Number Manufacturing Date Expiration Date Distinct Identification Code MRI Safety Implantable Status Assigning Authority Unknown Unknown 76464-6 1 Unknown 07/10/24 Unknown Unknown Active Unknown Patient Care team information Care Team Personnel Name: Kash TREVIZO, Ramana Nation Position: [facility] Physician - Pediatrics Member Role: Lifetime Consulting Physician Address: [address] [place] [address] [place] [address]- Telecom: Name: Chetan TREVIZO, Kalyani Position: Reference Physician Member Role: PCP Address: [address] [place] [address]- Telecom: Name: Toshia Cazares RN Position: [facility] OB RN Member Role: Primary Care Nurse Name: Myles Woodard MD Position: [facility] Physician - Behavioral Health Member Role: Lifetime Consulting Physician Address: [address] [place] [address]- Telecom: Care Team Related Persons Name: LO HOOK Name: LUIS FELIPE JONES Name: KATALINA CASTELLANO Insurance Providers Guarantor name: NAVJOT HOOK Health Plan Information #: 1 Payer: [facility] CARE ALLIANCE/ONE CARE Member Number: NA Policy Number: NA Group Number: NA
--- OUTSIDE RECORDS SUMMARY | 2024-06-01 08:30 | XMS_ITS | Continuity of Care Document ---
Author Organization [facility] Address [address] [place] [address]- Support Name Relationship Address Phone KAREN, LUIS [...] Unknown Un available Care Team Providers Care Entertainment Dancer Name Role Phone Chetan TREVIZO, Asma Primary Care Physician Encounter [facility] [place] Date(s): 04/22/24 - 05/22/24 [facility] [address] [address] Encounter Type: Triage Allergies, Adverse Reactions, Alerts [...] 07/23/07 GIVEN 8Admin Note: boostrix--state 9Admin Note: [facility] Medications clonazePAM 1 mg oral tablet 1 tablet = 1 mg, By Mouth, 3 times a day, # 90 tablet, 1 Refills, Maintenance, 08/19/23 8:43:00 AM EDT, Tablet, [facility] 3, Partial fill upon patient request [...] Refills, Maintenance, 02/19/24 5:20:00 PM EDT, Tablet, [facility] #[id number], Partial fill upon patient request if the [...] Maintenance, 08/28/23 6:22:00 AM EDT, DIS Tablet, [facility] #[id number], Partial fill upon patient request if the [...] Maintenance, 09/18/23 4:26:00 PM EDT, ER Tablet, [facility] #[id number], Partial fill upon patient request if the [...] Safety Implantable Status Assigning Authority Unknown Unknown [id number] 1 Unknown 07/10/24 Unknown Unknown Active Unknown Patient Care team information Care Team Personnel Name: Kash TREVIZO, Ramana Nation Position: [facility] Physician - Pediatrics Member Role: Lifetime Consulting Physician Address: [address] [place] [address] [place] [address]- Telecom: Name: Chetan TREVIZO, Kalyani Position: Reference Physician Member Role: PCP Address: [address] [place] [address]- Telecom: Name: Toshia Cazares RN Position: [facility] OB RN Member Role: Primary Care Nurse Name: Myles Woodard MD Position: [facility] Physician - Behavioral Health Member Role: Lifetime Consulting Physician Address: [address] [place] [address]- Telecom: Care Team Related Persons Name: LO HOOK Name: LUIS FELIPE JONES Name: KATALINA CASTELLANO Insurance Providers Guarantor name: NAVJOT HOOK Health Plan Information #: 1 Payer: [facility] CARE ALLIANCE/ONE CARE Member Number: NA Policy Number: NA Group Number: NA
--- OUTSIDE RECORDS SUMMARY | 2024-06-01 08:30 | XMS_ITS | Continuity of Care Document ---
Author Organization [facility] Address [address] [place] [id number]- Support Name Relationship Address Phone KAREN, LUIS [...] LUIS FELIPE Personal Relationship Unknown Un available KAERN, LUIS FELIPE Personal Relationship Unknown Un available KAREN, LUIS FELIPE Personal Relationship Unknown Un available Care Team Providers Care Document Photographer Name Role Phone Chetan TREVIZO, Asma Primary Care Physician [phone] [place] [facility] [place] - 05/21/24 [facility] [address] [id number] Encounter Type: Triage Allergies, Adverse Reactions, Alerts [...] 07/23/07 GIVEN 8Admin Note: boostrix--state 9Admin Note: [facility] Medications clonazePAM 1 mg oral tablet 1 tablet = 1 mg, By Mouth, 3 times a day, # 90 tablet, 1 Refills, Maintenance, 08/19/23 8:43:00 AM EDT, Tablet, [facility] 3, Partial fill upon patient [...] Refills, Maintenance, 02/19/24 5:20:00 PM EDT, Tablet, [id number], Partial fill upon patient request if the [...] Maintenance, 08/28/23 6:22:00 AM EDT, DIS Tablet, [id number], Partial fill upon patient request if the [...] Maintenance, 09/18/23 4:26:00 PM EDT, ER Tablet, [facility][id number], Partial fill upon patient request if the [...] Safety Implantable Status Assigning Authority Unknown Unknown [id number] Unknown 07/10/24 Unknown Unknown Active Unknown Patient Care team information Care Team Personnel Name: Kash TREVIZO, Ramana Nation Position: [facility] Physician - Pediatrics Member Role: [employer] Consulting Physician Address: [address] [place] [address] [place] [address]- Telecom: Name: Chetan TREVIZO, Kalyani Position: Reference Physician Member Role: PCP Address: [address] [place] [address]- Telecom: Name: Toshia Cazares RN Position: [facility] OB RN Member Role: Primary Care Nurse Name: Myles Woodard MD Position: [facility] Physician - Behavioral Health Member Role: [employer] Physician Address: [address] [place] [id number]- Telecom: Care Team Related Persons Name: LO HOOK Name: LUIS FELIPE JONES Name: KATALINA CASTELLANO Insurance Providers Guarantor name: NAVJOT HOOK Health Plan Information #: 1 Payer: [facility] CARE [employer]IANCE/ONE CARE Member Number: NA Policy Number: NA Group Number: [id number]
== END 2024-06-01 08:48 | disposition home or self-care (01) ==
PROVIDERS: PCP Internal Medicine; Visit Provider Internal Medicine
DX: R00.0 Tachycardia, unspecified (principal); F41.0 Panic disorder [episodic paroxysmal anxiety]; F33.2 Major depressive disorder, recurrent severe without psychotic features; D69.6 Thrombocytopenia, unspecified; G40.909 Epilepsy, unspecified, not intractable, without status epilepticus; F43.10 Post-traumatic stress disorder, unspecified; F11.20 Opioid dependence, uncomplicated; I99.8 Other disorder of circulatory system

== ENCOUNTER 2024-06-10 08:32 | Outpatient (AMB) | payer OTHER, SELFPAY ==
--- NOTE | 2024-06-10 10:18 | A.OFFPC_ITS ---
Intake Visit Reasons: Discuss Labs Allergies prochlorperazine [From COMPAZINE] Allergy (Severe, Verified 06/01/24 08:28) AGITATION tramadol [TRAMADOL] Allergy (Intermediate, Verified 06/01/24 08:28) SEIZURES Compazine Allergy (Unknown, Verified 06/01/24 08:28) agitation, jittery Medication List - Last Reconciled 06/10/24 by Kalyani Benton MD clonazepam 1 mg PO TID PRN 30 days clonazepam 1 mg PO TID 30 days lamotrigine 100 mg PO DAILY 90 days methadone 90 mg PO QPM methadone 105 mg PO DAILY quetiapine (Seroquel) 50 mg PO BID 90 days Tobacco use date assessed: 06/01/24 Dental Screening Dental Screen Date: 06/01/24 HPI Discuss Labs HPI Details History - The patient is a 28-year-old female pr esenting with persistent dizziness, cold intolerance, mood disturbances, and episodic hypertension. - Experiences dizziness and episodes of increased blood pressure and heart rate. - Reports extreme cold intolerance, feel ing cold and shivering even in environments between 75 to 80 degrees. - Suffers from severe migraines,has been having frequents night with lack of sleep, going thru stress as her baby is in hospital - Presents with mood instability, includ ing crying spells and irritability. - Current anxiety management includes Se roquel, Clonazepam, and Lamotrigine, suggesting limited improvement in symptoms. - Lab results are essentially normal, ex cept for low vitamin D and minor liver enzyme elevation. - Pending cardiology evaluation for bloo d pressure irregularities and dizziness. cardio number provided to patient so she can book her own apt tried to explain to her that stress she is going thru, and lack to sleep, can cause worsening migraine, dizziness and exhaustion she is feeling Problem List - Anxiety Disorder - Vitamin D Deficiency - Migraine - Hypertension, Episodic - Dizziness - Mood Disturbance - stress, sleep disturbances Patient Instructions - Please call the number provided to [facility] your cardiology appointment as soon as possible. - Continue taking your current medicatio ns as prescribed. - start vitamin D supplementation script sent - Monitor symptoms closely, and seek fur ther medical attention if new or worsening symptoms develop. Review of Systems - Constitutional: Denies fevers; has bee n monitoring temps at home - Cardiovascular: Reports episodic hyper tension and increased heart rate. - Endocrine: Reports cold intolerance. - Neurological: Reports persistent dizzi ness and severe migraines. - Psychiatric: Reports mood instability with frequent crying spells. - General: No fever no chills - Ear nose throat: No sore throat no hearing difficulty no ear pain - Gastrointestinal: No nausea vomiting or diarrhea - Genitourinary: No dysuria , no blood in urine PFSH Medical History Tachycardia Seizures Sleep apnea Depression Fibromyalgia Suicidal ideation Methadone maintenance therapy patient Anxiety Endometriosis determined by laparoscopy Surgical History History of esophagogastroduodenoscopy (EGD) History of appendectomy History of laparoscopy Family History Father Substance use disorder Mental health disorder Mother Fibromyalgia Herniation of intervertebral disc of thoracic region Endometriosis Social History Household Members: Family and Children Household Members Other:: Mother, grandmother, and her son Housing: Apartment Are you a primary managed care coordinator to a significant other at home: No Do you presently have visiting nurse or other home services: No Alcohol intake: current Alcohol intake frequency: does not drink Patient Tobacco Use Status: Former Tobacco user Tobacco use type: Cigarette Cigarettes Per Day: 2 Years Smoked: 10 years Packs per year/per ci.00 e-Cigarette/Vaping Use: Currently Using service: No Current occupational status: unemployed and disabled Cognitive needs: No Hearing needs: No Vision needs: No Questionnaire Thrive Questionnaire Date Thrive assessed: 06/01/24 SHEFALI-7 AMB Questionnaire SHEFALI-7 Date SHEFALI - 7 assessed: 06/01/24 Source: Developed by Drs. Jared Canela, Ayesha Cat, David Pedro and colleagues, with an educational adriel from [employer]. Physical exam (Primary Care) Tobacco/Smoking Status: Tobacco use Status Tobacco use date assessed 06/01/24 06/10/24 10:18 Patient Tobacco Use Status Former Tobacco user 06/10/24 10:18 Tobacco use type Cigarette 06/10/24 10:18 e-Cigarette/Vaping Use Currently Using 06/10/24 10:18 Thrive Assessment: Date of Thrive Assessment Date Thrive assessed 06/01/24 06/10/24 10:18 Telehealth Telehealth Telehealth Platform: [facility] Location of provider rendering services: practice address Location of patient: address on file Patient Identification confirmed using: Name, : Yes Telehealth method: voice only Patient verbally consented to treatment: Yes Patient verbally consented to billing insurance company: Yes Patient informed of any privacy concerns related to visit: Yes Minutes spent on Phone/Video with Pt.: 13 Coding Level of Care Code Tele Est Pt Level 3 (77476) Diagnoses Tachycardia R00.0 Fluctuating blood pressure I99.8 Other specified persistent mood disorders F34.89 Nonintractable epilepsy without status epilepticus, unspecified epilepsy type G40.909 Epilepsy type: unspecified Intractability: not intractable Status epilepticus: without status epilepticus Panic anxiety syndrome F41.0 Severe episode of recurrent major depressive disorder, without psychotic features F33.2 Psychotic features: without psychotic features Cold intolerance R68.89 Vitamin D deficiency E55.9 Assessment & Plan Assessment & Plan (1) Tachycardia: Code(s): R00.0 - Tachycardia, unspecified Category: Medical (2) Fluctuating blood pressure: Code(s): I99.8 - Other disorder of circulatory system Category: Medical (3) Other specified persistent mood disorders: Code(s): F34.89 - Other specified persistent mood disorders Category: Medical (4) Epilepsy: Code(s): G40.909 - Epilepsy, unspecified, not intractable, without status epilepticus Category: Medical Qualifiers: Epilepsy type: unspecified Intractability: not intractable Status epilepticus: without status epilepticus Qualified Code(s): G40.909 - Epilepsy, unspecified, not intractable, without status epilepticus (5) Panic anxiety syndrome: Code(s): F41.0 - Panic disorder [episodic paroxysmal anxiety] Category: Medical (6) Recurrent major depression-severe: Code(s): F33.2 - Major depressive disorder, recurrent severe without psychotic features Category: Medical Qualifiers: Psychotic features: without psychotic features Qualified Code(s): F33.2 - Major depressive disorder, recurrent severe without psychotic features (7) Cold intolerance: Code(s): R68.89 - Other general symptoms and signs Category: Medical (8) Vitamin D deficiency: Code(s): E55.9 - Vitamin D deficiency, unspecified Category: Medical Plan History - The patient is a 28-year-old female presenting with persistent dizziness, cold intolerance, mood disturbances, and episodic hypertension. - Experiences dizziness and episodes of increased blood pressure and heart rate. - Reports extreme cold intolerance, feeling cold and shivering even in environments between 75 to 80 degrees. - Suffers from severe migraines,has been having frequents night with lack of sleep, going thru stress as her baby is in hospital - Presents with mood instability, including crying spells and irritability. - Current anxiety management includes Seroquel, Clonazepam, and Lamotrigine, suggesting limited improvement in symptoms. - Lab results are essentially normal, except for low vitamin D and minor liver enzyme elevation. - Pending cardiology evaluation for blood pressure irregularities and dizziness. cardio number provided to patient so she can book her own apt tried to explain to her that stress she is going thru, and lack to sleep, can cause worsening migraine, dizziness and exhaustion she is feeling Problem List - Anxiety Disorder - Vitamin D Deficiency - Migraine - Hypertension, Episodic - Dizziness - Mood Disturbance - stress, sleep disturbances Patient Instructions - Please call the number provided to schedule your cardiology appointment as soon as possible. - Continue taking your current medications as prescribed. - start vitamin D supplementation script sent - Monitor symptoms closely, and seek further medical attention if new or worsening symptoms develop. Medications: New cholecalciferol (vitamin D3) 25 mcg PO DAILY 90 days 90 caps 1RF
== END 2024-06-10 10:22 | disposition home or self-care (01) ==
LOC: HO.HMCC 08:32
PROVIDERS: PCP Internal Medicine; Visit Provider Internal Medicine
DX: R00.0 Tachycardia, unspecified (principal); F34.89 Other specified persistent mood disorders; G40.909 Epilepsy, unspecified, not intractable, without status epilepticus; F33.2 Major depressive disorder, recurrent severe without psychotic features; I99.8 Other disorder of circulatory system; F41.0 Panic disorder [episodic paroxysmal anxiety]; R68.89 Other general symptoms and signs; E55.9 Vitamin D deficiency, unspecified

== ENCOUNTER 2024-06-23 08:32 | Outpatient (AMB) | payer OTHER, SELFPAY ==
[2024-06-23 08:45] VITALS: BP 120/74; PULSE 89; TEMP 36.6; O2SAT 97; BMI 18.6
--- NOTE | 2024-06-23 08:45 | A.OFFPC_ITS ---
Vital Signs 06/23/24 08:45 Height 5 ft 3 in Weight 105 lb BMI 18.6 BP 120/74 Blood Pressure Location Lt brachial Position Sitting Pulse 89 Pulse Source Pulse Oximeter Temp 97.8 F Pulse Oximetry (%) 97 Oxygen Delivery Method Room Air Intake Visit Reasons: 3 weeks f/u Allergies prochlorperazine [From COMPAZINE] Allergy (Severe, Verified 06/23/24 08:54) AGITATION tramadol [TRAMADOL] Allergy (Intermediate, Verified 06/23/24 08:54) SEIZURES Compazine Allergy (Unknown, Verified 06/23/24 08:54) agitation, jittery Medication List - Last Reconciled 06/23/24 by Kalyani Benton MD cholecalciferol (vitamin D3) 25 mcg PO DAILY 90 days clonazepam 1 mg PO TID PRN 30 days clonazepam 1 mg PO TID 30 days methadone 90 mg PO QPM methadone 105 mg PO DAILY quetiapine (Seroquel) 50 mg PO BID 90 days Tobacco use date assessed: 06/23/24 Dental Screening Dental Screen Date: 06/23/24 Did you have a dental visit in the last 12 months?: Yes Did you have a dental problem in the last 6 months where you did not have access to dental care?: No Was dental information given to patient?: Patient has dentist HPI 3 weeks f/u HPI Details thorazine History - The patient is a 28-year-old female pr esenting with medication management and stability after recent hospitalization. - Recent hospitalization occurred due to an exacerbation of symptoms at the [facility] following an incident involving emotional distress and property damage. - Adjustments to medications were made p rimarily at the respite center with a transition to Oxcarbazepine and thorazine was added. Patient states that she has enough medication for now - Suspects POTS and is seeking further c ardiac evaluation. Patient has appointm ent - Current medications include Clonazepam , Quetiapine, Oxcarbazepine, and Thorazine. - Concerns regarding self-injurious beha vior are present due to stress. Patient met with our behavior health coordinator we were able to get her in with psych med prescriber this coming Friday And therapy was also initiated. However when patient was informed about the management she got upset she got up and left stating that she is not able to do it Problem List - Bipolar Disorder - Episodic Hypertension Patient Instructions - Continue taking medications as prescri bed: Oxcarbazepine, Clonazepam, Quetiapine, and Thorazine. - Monitor and report any severe side eff ects or increased symptoms, especially related to blood pressure changes. - Engage in stress-reduction techniques to manage anxiety and prevent self-harm. - Bring the family leave form once arriv ed for assistance with completion. - Follow up on efforts to secure placeme nt at the desired [facility] center. Review of Systems. - General: No fever no chills - Neurological: No headaches no dizziness - Ear nose throat: No sore throat no hearing difficulty no ear pain - Cardiovascular: No syncope, no chest pain, no palpitations - Gastrointestinal: No nausea vomiting or diarrhea - Endocrine: No polyuria polydipsia no heat intolerance - Genitourinary: No dysuria , no blood in urine Physical Exam General: No acute distress HEENT: No acute findings Neck: Supple Respiratory system: Able to talk in full sentences, no audible wheeze cardiovascular: S1-S2 regular in rate and rhythm, blood pressure fluctuating f rom high to low but normal at this time at 120/74 Gastrointestinal: No pain Extremities: No new findings [employer]: Alert awake oriented x3 motor sensory intact Skin: Normal turgor, fingerprint bruises on arms due to self-inflicted grabbing PFSH Medical History Tachycardia Seizures Sleep apnea Depression Fibromyalgia Suicidal ideation Methadone maintenance therapy patient Anxiety Endometriosis determined by laparoscopy Surgical History History of esophagogastroduodenoscopy (EGD) History of appendectomy History of laparoscopy Family History Father Substance use disorder Mental health disorder Mother Fibromyalgia Herniation of intervertebral disc of thoracic region Endometriosis Social History Household Members: Family and Children Household Members Other:: Mother, grandmother, and her son Housing: Apartment Are you a primary care attendant to a significant other at home: No Do you presently have visiting nurse or other home services: No Alcohol intake: current Alcohol intake frequency: does not drink Patient Tobacco Use Status: Former Tobacco user Tobacco use type: Cigarette Cigarettes Per Day: 2 Years Smoked: 10 years e-Cigarette/Vaping Use: Currently Using service: No Current occupational status: unemployed and disabled Cognitive needs: No Hearing needs: No Vision needs: No Questionnaire Thrive Questionnaire Date Thrive assessed: 06/01/24 I am a: Patient What is your living situation today?: I have a steady place to live Within the past 12 months, did the food you bought not last and you didn't have the money to get more?: I choose not to answer this question Within the past 12 months, did you worry whether your food would run out before you got money to buy more?: I choose not to answer this question Do you have trouble paying for medicines?: I choose not to answer this question Do you have trouble getting transportation to medical appointments?: I choose not to answer this question Do you have trouble paying your heating and electricity bill?: I choose not to answer this question Do you have trouble taking care of your child, family member or friend?: Yes Do you have trouble with day-to-day activities such as bathing, preparing meals, shopping, managing finances, etc.?: Yes Are you currently unemployed and looking for a job?: No Are you interested in more education?: No Please select the resources that you would like help with: None THRIVE Score: 0 AUDIT C Alcohol Use Questionnaire (AUDIT-C) 1. How often do you have a drink containing alcohol?: Monthly or less 2. How many drinks containing alcohol do you have on a typical day when you are drinking?: 1 or 2 3. How often do you have six or more drinks on one occasion?: Never Total Score: 1 Score Reviewed/Action Taken: Yes SHEFALI-7 AMB Questionnaire SHEFALI-7 Date SHEFALI - 7 assessed: 06/01/24 Source: Developed by Drs. Jared Canela, Ayesha Cat, David Pedro and colleagues, with an educational adriel from [employer]. Physical exam (Primary Care) Vital Signs: Last Vital Signs Temp 97.8 F 06/23/24 08:45 Pulse 89 06/23/24 08:45 BP 120/74 06/23/24 08:45 Pulse Ox 97 06/23/24 08:45 Oxygen Delivery Method Room Air 06/23/24 08:45 BMI result Body Mass Index 18.6 Tobacco/Smoking Status: Tobacco use Status Tobacco use date assessed 06/23/24 06/23/24 08:55 Patient Tobacco Use Status Former Tobacco user 06/23/24 08:49 Tobacco use type Cigarette 06/23/24 08:49 e-Cigarette/Vaping Use Currently Using 06/23/24 08:49 Thrive Assessment: Date of Thrive Assessment Date Thrive assessed 06/01/24 06/23/24 08:49 Coding Level of Care Code Est Pt Level 5 (80745) Diagnoses Other specified persistent mood disorders F34.89 Nonintractable epilepsy without status epilepticus, unspecified epilepsy type G40.909 Epilepsy type: unspecified Intractability: not intractable Status epilepticus: without status epilepticus Panic anxiety syndrome F41.0 Severe episode of recurrent major depressive disorder, without psychotic features F33.2 Psychotic features: without psychotic features Bipolar disorder, in partial remission, most recent episode mixed F31.77 Active/Remission status: in partial remission Most recent bipolar episode type: mixed Seizures R56.9 Assessment & Plan Assessment & Plan (1) Other specified persistent mood disorders: Code(s): F34.89 - Other specified persistent mood disorders Category: Medical (2) Epilepsy: Code(s): G40.909 - Epilepsy, unspecified, not intractable, without status epilepticus Category: Medical Qualifiers: Epilepsy type: unspecified Intractability: not intractable Status epilepticus: without status epilepticus Qualified Code(s): G40.909 - Epilepsy, unspecified, not intractable, without status epilepticus (3) Panic anxiety syndrome: Code(s): F41.0 - Panic disorder [episodic paroxysmal anxiety] Category: Medical (4) Recurrent major depression-severe: Code(s): F33.2 - Major depressive disorder, recurrent severe without psychotic features Category: Medical Qualifiers: Psychotic features: without psychotic features Qualified Code(s): F33.2 - Major depressive disorder, recurrent severe without psychotic features (5) Bipolar disorder: Code(s): F31.9 - Bipolar disorder, unspecified Category: Medical Qualifiers: Active/Remission status: in partial remission Most recent bipolar episode type: mixed Qualified Code(s): F31.77 - Bipolar disorder, in partial remission, most recent episode mixed (6) Seizures: Comment: Patient reports she has seen neurologist a few times in the past. Patient state, the neurologist does not think I have epileptic seizures. Stated I have stress induced seizures. Last seizure a year ago. Patient stated she losses consciousness. Patient stated neurologist did not put her on medications for the seizures. Hx of Febrile seizures. Code(s): R56.9 - Unspecified convulsions Category: Medical Plan thorazine History - The patient is a 28-year-old female presenting with medication management and stability after recent hospitalization. - Recent hospitalization occurred due to an exacerbation of symptoms at the respite following an incident involving emotional distress and property damage. - Adjustments to medications were made primarily at the respite center with a transition to Oxcarbazepine and thorazine was added. Patient states that she has enough medication for now - Suspects POTS and is seeking further cardiac evaluation. Patient has appointment - Current medications include Clonazepam, Quetiapine, Oxcarbazepine, and Thorazine. - Concerns regarding self-injurious behavior are present due to stress. Patient met with our behavior health coordinator we were able to get her in with psych med prescriber this coming Friday And therapy was also initiated. However when patient was informed about the management she got upset she got up and left stating that she is not able to do it Problem List - Bipolar Disorder - Episodic Hypertension Patient Instructions - Continue taking medications as prescribed: Oxcarbazepine, Clonazepam, Quetiapine, and Thorazine. - Monitor and report any severe side effects or increased symptoms, especially related to blood pressure changes. - Engage in stress-reduction techniques to manage anxiety and prevent self-harm. - Bring the family leave form once arrived for assistance with completion. - Follow up on efforts to secure placement at the desired [facility] respite center. 45 minutes spent in care of this patient including behavior health intervention and discussion Medications: New oxcarbazepine take one tab in am and 2 at night 90 tabs 0RF oxcarbazepine take one tab in am and 2 at night 90 tabs 0RF Refilled clonazepam 1 mg PO TID 30 days PRN 90 tabs 0RF anxiety quetiapine (Seroquel) 50 mg PO BID 90 days 180 tabs 0RF anxiety Discontinued lamotrigine Discontinued Reason: Doctor's Order 100 mg PO DAILY 90 days 90 tabs 0RF depressive disorder
--- OUTSIDE RECORDS SUMMARY | 2024-06-23 09:15 | XMS_ITS | Clinical Summary ---
Author Organization [facility] Address [address] [place] [address] Phone Care Team Providers Care Bmet Name Role Phone Physician, Pcp Unknown Primary Care Provider Asia vailable Allergies Active Allergy Reactions Criticality Noted Date Comments Prochlorperazine Anxiety 06/16/2024 Makes her very gittery Tramadol Seizures High 06/16/2024 Medications chlorproMAZINE (THORAZINE) 50 mg tablet Take 1 tablet (50 mg total) by mouth 3 (three) times a day if needed (AGITATION). 06/16/2024 Active clonazePAM (KlonoPIN) 1 mg tablet Take 1 tablet (1 mg total) by mouth 3 (three) times a day. Active lamoTRIgine (LaMICtal) 100 mg tablet Take 1 tablet (100 mg total) by mouth 1 (one) time each day. 03/31/2024 Active OXcarbazepine (TRILEPTAL) 150 mg tablet Take 1 tablet (150 mg total) by mouth 2 (two) times a day. 06/16/2024 Active QUEtiapine (SEROquel) 50 mg tablet Take 1 tablet (50 mg total) by mouth 2 (two) times a day if needed (anxiety). for anxiety 03/31/2024 Active methadone 10 mg/mL syringe Take 105 mg by mouth 1 (one) time each day. LAST DOSE 5PM 06/16/2024 Max Daily Amount: 200 mg Active methadone 10 mg/mL syringe Take 95 mg by mouth at bedtime. TAKES SECOND DOSE AT 1700 Max Daily Amount: 95 mg Active Encounters Date Type Department Care Team Description 06/16/2024 8:30 PM EST - 06/17/2024 11:15 AM EST Emergency [facility] Emergency [address] [place] [address] Fredo Dowling MD Aggression (Primary Dx); Anxiety disorder, unspecified type; Current episode of major depressive disorder without prior episode, unspecified depression episode severity Discharge Disposition: Home or Self Care from Last 3 Months Medical History Medical History Date Comments Seizures (CMS/HCC) Social History Tobacco Use Types Packs/Day Years Used Date Smoking Tobacco: Never Tobacco Cessation:Counseling Given: Not Answered Comments Unknown Sex and Gender Information Value Date Recorded Sex Assigned at Not on file Legal Sex Female 10:24 AM EST Gender Identity Not on file Sexual Orientation Not on file Obstetrics History Last Filed Vital Signs Vital Sign Reading Time Taken Comments Blood Pressure 122/74 06/17/2024 6:28 AM EST Pulse 88 06/17/2024 6:28 AM EST Temperature 34.7 ??C (94.4 ??F) 06/17/2024 6:28 AM ES T Respiratory Rate 16 06/17/2024 6:28 AM EST Oxygen Saturation 100% 06/17/2024 6:28 AM EST Inhaled Oxygen Concentration - - Weight 54.4 kg (120 lb) 06/16/2024 9:21 PM EST Height 157.5 cm (5' 2 ) 06/16/2024 9:21 PM EST Body Mass Index 21.95 06/16/2024 9:21 PM EST Plan of Treatment Health Maintenance Due Date Last Done Comments Hepatitis A Vaccines (1 of 2 - Risk 2-dose series) 09/29/2014 Cervical Cancer Screening: Pap Smear 09/29/2016 Depression Screening 04/09/2022 HIV Screening 04/09/2022 Hepatitis C Screening 04/09/2022 Medicare Annual Wellness Visit 04/09/2022 Social Influencers of Health Screening 04/09/2022 COVID-19 Vaccine ( season) 2024 Influenza Vaccine (#1) 2024 04/10/2011, 2008 DTaP,Tdap,and Td Vaccines (7 - Td or Tdap) 06/12/2033 06/12/2023, 2000, 03/31/1997, Additional history exists Hepatitis B Vaccines Completed 07/05/1996, 1995, 1995 HIB Vaccines Completed 12/30/1996, 03/13, 02/02/1996, Additional history exists MMR Vaccines Completed 01/30/2000, 12/30/1996 IPV Vaccines Completed 2000, 03/13, 02/02/1996, Additional history exists Meningococcal ACWY Vaccine Aged Out 10/28/2007 N o longer eligible based on patient's age to complete this topic Varicella Vaccines Completed 10/28/2007, 03/31/1997 HPV Vaccines Completed 01/23/2009, 12/10, 10/28/2007 Meningococcal B Vacine Aged Out No lo nger eligible based on patient's age to complete this topic Pneumococcal Vaccine: Pediatrics (0 to 5 Years) and At-Risk Patients (6 to 64 Years) Aged Out No longer eligible based on patient's age to complete this topic RSV Immunization Patients Under 20 months Aged Out No longer eligible based on patient's age to complete this topic Procedures Procedure Name Priority Date/Time Associated Diagnosis Comments METHADONE SCREEN, URINE STAT 06/16/2024 9:30 PM EST PHENCYCLIDINE, URINE STAT 06/16/2024 9:30 PM EST BUPRENORPHINE SCREEN, URINE STAT 06/16/2024 9:30 PM EST DRUG ABUSE SCREEN 8A PANEL, URINE STAT 06/16/2024 9:30 PM EST CBC WITH AUTO DIFFERENTIAL STAT 06/16/2024 9:20 PM EST SALICYLATE LEVEL STAT 06/16/2024 9:20 PM EST ACETAMINOPHEN LEVEL STAT 06/16/2024 9 :20 PM EST ETHANOL STAT 06/16/2024 9:20 PM EST COMPREHENSIVE METABOLIC PANEL STAT 06/16/2024 9:20 PM EST CBC AND DIFFERENTIAL STAT 06/16/2024 9:20 PM EST from Last 3 Months Results * (ABNORMAL) Drug abuse screen 8a panel, urine (06/16/2024 9:30 PM EST) [facility] Amphetamine Screen, Ur Negative Negative LAB CHEMISTRY METHOD 5 10:55 PM [facility] Comment:Certain OTC medicati ons containing ephedrine, phenylephrine, pseudoephedrine and phenylpropanolamine can cause false positive results. Barbiturate Screen, Ur Negative Negative LAB CHEMISTRY METHOD 5 10:55 PM [facility] Benzodiazepine Screen, Ur Negative Negative LAB CHEMISTRY METHOD 5 10:55 PM [facility] Cocaine Screen, Ur Negative Negative LAB CHEMISTRY METHOD 5 10:55 PM [facility] Opiate Screen, Ur Negative Negative LAB CHEMISTRY METHOD 5 10:55 PM [facility] Cannabinoid (THC) Screen, Ur Positive(A ) Negative LAB CHEMISTRY METHOD 5 10:55 PM [facility] Comment:Specimens from patie nts taking pantoprazole sodium (Protonix) have been shown to produce false positive results. Oxycodone Screen, Ur Negative Negative LAB CHEMISTRY METHOD 5 10:55 PM [facility] Fentanyl, Ur Negative Negative LAB CHEMISTRY METHOD 5 10:55 PM [facility] Urine Urine specimen obtained by clean catch procedure / Unknown Non-blood Collection / Unknown 06/16/2024 9:30 PM EST 06/16/2024 10:20 PM EST [facility] - 06/16/2024 10:55 PM EST Assay cutoffs: Amphetamines ? 1000 ng/mL Barbiturates ?200 ng/mL Benzodiazepines ?? 200 ng/mL Cocaine ? 300 ng/mL Fentanyl ?1 ng/mL Opiates ? 300 ng/mL Oxycodone ? 100 ng/mL THC ?50 ng/mL Semi-quantitative assay for screening purposes only. Unconfirmed screening result should not be used for non-medical purposes. *ALTERNATE METHOD CONFIRMATION DONE UPON REQUEST ONLY* Nabil Coyne LAB URINE ORDERABLES Final Resu lt Performing Organization Address [facility] de Phone Number [facility] [address] [place] [address], [place] [phone] * Buprenorphine screen, urine (06/16/2024 9:30 PM EST) Buprenorphine Screen Urine Negative Negative LAB CHEMISTRY METHOD 06/16/2024 10:55 PM EST [facility] Urine Urine specimen obtained by clean catch procedure / Unknown Non-blood Collection / Unknown 06/16/2024 9:30 PM EST 06/16/2024 10:20 PM EST Narrative [facility] - 06/16/2024 10:55 PM EST Assay cutoff 5 ng/mL Semi-quantitative assay for screening purposes only. Unconfirmed screening result should not be used for non-medical purposes. *ALTERNATE METHOD CONFIRMATION DONE UPON REQUEST ONLY* Nabil Coyne DO LAB URINE ORDERABLES Final Resu lt Performing Organization Address [facility] de Phone Number [facility] [address] [place] [address], [place] [phone] * (ABNORMAL) Methadone, urine (06/16/2024 9:30 PM EST) [facility] Methadone Screen, Urine Positive (A) Negative LAB CHEMISTRY METHOD 06/16/2024 10:55 PM EST [facility] Comment: Assay cutoff 300 ng/mL Semi-quantitative assay for screening purposes only. Unconfirmed screening result should not be used for non-medical purposes. *ALTERNATE METHOD CONFIRMATION DONE UPON REQUEST ONLY* Urine Urine specimen obtained by clean catch procedure / Unknown Non-blood Collection / Unknown 06/16/2024 9:30 PM EST 06/16/2024 10:20 PM EST Nabil Coyne DO LAB URINE ORDERABLES Final Resu lt Performing Organization Address City/[facility]/ZIP Co de Phone Number [facility] [address] [place] [address], [place] [phone] * Phencyclidine, urine (06/16/2024 9:30 PM EST) PCP Scrn, Ur Negative Negative LAB CHEMISTRY METHOD 06/16/2024 11:02 PM EST [facility] Comment: Assay cutoff 25 ng/mL Semi-quantitative assay for screening purposes only. Unconfirmed screening result should not be used for non-medical purposes. *ALTERNATE METHOD CONFIRMATION DONE UPON REQUEST ONLY* Urine Urine specimen obtained by clean catch procedure / Unknown Non-blood Collection / Unknown 06/16/2024 9:30 PM EST 06/16/2024 10:20 PM EST Nabil Coyne DO LAB URINE ORDERABLES Final Resu lt Performing Organization Address City/[facility]/ZIP Co de Phone Number [facility] [address] [place] [address], [place] [phone] * CBC auto differential (06/16/2024 9:20 PM EST) WBC 7.5 4.8 - 10.8 K/mcL LAB HEMETOLOGY METHOD 06/16/2024 9:48 PM [facility] RBC 4.00 3.80 - 4.80 M/mcL LAB HEMETOLOGY METHOD 06/16/2024 9:48 PM [facility] Hemoglobin 12.0 11.5 - 16.0 g/dL LAB HEMETOLOGY METHOD 06/16/2024 9:48 PM [facility] Hematocrit 36.9 35.0 - 47.0 % LAB HEMETOLOGY METHOD 06/16/2024 9:48 PM [facility] MCV 92.0 79.0 - 98.0 FL LAB HEMETOLOGY METHOD 06/16/2024 9:48 PM [facility] MCH 29.9 27.0 - 32.0 pcg LAB HEMETOLOGY METHOD 06/16/2024 9:48 PM [facility] MCHC 32.5 32.0 - 37.0 g/dL LAB HEMETOLOGY METHOD 06/16/2024 9:48 PM [facility] RDW 12.4 11.0 - 15.0 % LAB HEMETOLOGY METHOD 06/16/2024 9:48 PM [facility] Platelets 193 130 - 400 K/mcL LAB HEMETOLOGY METHOD 06/16/2024 9:48 PM [facility] MPV 10.6 7.0 - 11.0 FL LAB HEMETOLOGY METHOD 06/16/2024 9:48 PM [facility] NRBC 0.0 <1.0 % LAB HEMETOLOGY METHOD 06/16/2024 9:48 PM [facility] NRBC Absolute 0.00 <0.10 K/mcL LAB HEMETOLOGY METHOD 06/16/2024 9:48 PM [facility] Neutrophils Relative 60.7 % LAB HEMETOLOGY METHOD 06/16/2024 9:48 PM [facility] Lymphocytes Relative 31.5 % LAB HEMETOLOGY METHOD 06/16/2024 9:48 PM [facility] Monocytes Relative 6.9 % LAB HEMETOLOGY METHOD 06/16/2024 9:48 PM [facility] Eosinophils Relative 0.4 % LAB HEMETOLOGY METHOD 06/16/2024 9:48 PM [facility] Basophils Relative 0.4 % LAB HEMETOLOGY METHOD 06/16/2024 9:48 PM [facility] Immature Granulocytes Relative 0.1 % LAB HEMETOLOGY METHOD 06/16/2024 9:48 PM EST [facility] Neutrophils Absolute 4.56 1.50 - 7.00 K/mcL LAB HEMETOLOGY METHOD 06/16/2024 9:48 PM [facility] Lymphocytes Absolute 2.37 1.00 - 5.00 K/mcL LAB HEMETOLOGY METHOD 06/16/2024 9:48 PM [facility] Monocytes Absolute 0.52 0.20 - 1.00 K/mcL LAB HEMETOLOGY METHOD 06/16/2024 9:48 PM [facility] Eosinophils Absolute 0.03 0.00 - 0.50 K/mcL LAB HEMETOLOGY METHOD 06/16/2024 9:48 PM [facility] Basophils Absolute 0.03 0.00 - 0.20 K/mcL LAB HEMETOLOGY METHOD 06/16/2024 9:48 PM [facility] Immature Granulocytes Absolute 0.01 0.00 - 0.03 K/mcL LAB HEMETOLOGY METHOD 06/16/2024 9:48 PM [facility] Blood Venous blood specimen / Unknown Venipuncture / Unknown 06/16/2024 9:20 PM EST 06/16/2024 9:28 PM EST us Nabil Coyne DO LAB BLOOD ORDERABLES Final Resu lt [facility] [address] [place] [address], * Ethanol (06/16/2024 9:20 PM EST) Ethanol Level <3 0 - 10 mg/dL LAB CHEMISTRY METHOD 06/16/2024 9:55 PM EST [facility] Blood Venous blood specimen / Unknown Venipuncture / Unknown 06/16/2024 9:20 PM EST 06/16/2024 9:28 PM EST Nabil Coyne DO LAB BLOOD ORDERABLES Final Resu lt Performing Organization Address City/[facility]/ZIP Co de Phone Number [facility] [address] [place] [address], [place] [phone] * (ABNORMAL) Acetaminophen level (06/16/2024 9:20 PM EST) Acetaminophen Level <2.0(L) 10.0 - 30.0 mcg/mL LAB CHEMISTRY METHOD 06/16/2024 9:56 PM EST [facility] Blood Venous blood specimen / Unknown Venipuncture / Unknown 06/16/2024 9:20 PM EST 06/16/2024 9:28 PM EST us Nabil Coyne DO LAB BLOOD ORDERABLES Final Resu lt Performing Organization Address [facility] Co de Phone Number [facility] [address] [place] [address], [place] [phone] * (ABNORMAL) Salicylate level (06/16/2024 9:20 PM EST) Salicylate Level <1.7(L) 2.0 - 29.0 mg/dL LAB CHEMISTRY METHOD 06/16/2024 9:55 PM EST [facility] Blood Venous blood specimen / Unknown Venipuncture / Unknown 06/16/2024 9:20 PM EST 06/16/2024 9:28 PM EST Nabil Coyne DO LAB BLOOD ORDERABLES Final Resu lt Performing Organization Address City/[facility]/ZIP Co de Phone Number [facility] [address] [place] [address], [place] [phone] * (ABNORMAL) Comprehensive metabolic panel (06/16/2024 9:20 PM EST) Sodium 134 133 - 145 mmol/L LAB CHEMISTRY METHOD 06/16/2024 9:55 PM [facility] Potassium 3.7 3.5 - 5.5 mmol/L LAB CHEMISTRY METHOD 06/16/2024 9:55 PM [facility] Chloride 101 96 - 110 mmol/L LAB CHEMISTRY METHOD 06/16/2024 9:55 PM [facility] CO2 24 21 - 32 mmol/L LAB CHEMISTRY METHOD 06/16/2024 9:55 PM [facility] Anion Gap 9 3 - 11 LAB CHEMISTRY METHOD 06/16/2024 9:55 PM [facility] Glucose 102(H) 70 - 100 mg/dL LAB CHEMISTRY METHOD 06/16/2024 9:55 PM [facility] BUN 18 5 - 25 mg/dL LAB CHEMISTRY METHOD 06/16/2024 9:55 PM [facility] Creatinine 0.82 0.50 - 1.10 mg/dL LAB CHEMISTRY METHOD 06/16/2024 9:55 PM [facility] eGFR 100 >=60 mL/min/1. 73m2 LAB CHEMISTRY METHOD 06/16/2024 9:55 PM [facility] Comment:Calculation based on the??Chronic Kidney Disease Epidemiology Collaboration (CKD-EPI) equation refit??without adjustment for race. BUN/Creatinine Ratio 22.0 LAB CHEMISTRY METHOD 06/16/2024 9:55 PM [facility] Calcium 10.0 8.5 - 10.5 mg/dL LAB CHEMISTRY METHOD 06/16/2024 9:55 PM [facility] AST (SGOT) 23 10 - 42 unit/L LAB CHEMISTRY METHOD 06/16/2024 9:55 PM [facility] ALT (SGPT) 30 10 - 60 unit/L LAB CHEMISTRY METHOD 06/16/2024 9:55 PM [facility] Alkaline Phosphatase 66 42 - 121 unit/L LAB CHEMISTRY METHOD 06/16/2024 9:55 PM EST [facility] Total Protein 8.3(H) 6.0 - 8.0 g/dL LAB CHEMISTRY METHOD 06/16/2024 9:55 PM EST [facility] Albumin 4.6 3.2 - 5.0 g/dL LAB CHEMISTRY METHOD 06/16/2024 9:55 PM EST [facility] Total Bilirubin 0.2 0.0 - 1.4 mg/dL LAB CHEMISTRY METHOD 06/16/2024 9:55 PM EST [facility] Blood Venous blood specimen / Unknown Venipuncture / Unknown 06/16/2024 9:20 PM EST 06/16/2024 9:28 PM EST us Nabil Coyne DO LAB BLOOD ORDERABLES Final Resu lt [facility] [address] [place] [address], from Last 3 Months Insurance [facility] MEDIC[facility] Member Subscriber Plan / Payer (Ef fective 2020-Present) Name:Haley Garcia Relation to Subscriber:Self Name:Haley Garcia Payer ID:[id number] Group ID:[id number] Type:Not on file Address: [place] [address] [address] [phone] Care Teams Bmet Relationship Specialty Start Date End Date Physician, Pcp Unknown PCP - General 06/16/24
--- OUTSIDE RECORDS SUMMARY | 2024-06-23 09:16 | XMS_ITS | Encounter Summary ---
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 encounter Procedures Procedure Name Priority Date/Time Associated Diagnosis Comments DRUG ABUSE SCREEN 8A PANEL, URINE STAT 06/16/2024 9:30 PM EST BUPRENORPHINE SCREEN, URINE STAT 06/16/2024 9:30 PM EST METHADONE SCREEN, URINE STAT 06/16/2024 9:30 PM EST PHENCYCLIDINE, URINE STAT 06/16/2024 9:30 PM EST CBC WITH AUTO DIFFERENTIAL STAT 06/16/2024 9:20 PM EST CBC AND DIFFERENTIAL STAT 06/16/2024 9:20 PM EST ETHANOL STAT 06/16/2024 9:20 PM EST ACETAMINOPHEN LEVEL STAT 06/16/2024 9 :20 PM EST SALICYLATE LEVEL STAT 06/16/2024 9:20 PM EST COMPREHENSIVE METABOLIC PANEL STAT 06/16/2024 9:20 PM EST documented in this encounter Results * (ABNORMAL) Methadone, urine (06/16/2024 9:30 PM EST) Methadone Screen, Urine Positive (A) Negative LAB CHEMISTRY METHOD 06/16/2024 10:[address] [facility] Comment: Assay cutoff 300 ng/mL Semi-quantitative assay for screening purposes only. Unconfirmed screening result should not be used for non-medical purposes. *ALTERNATE METHOD CONFIRMATION DONE UPON REQUEST ONLY* Urine Urine specimen obtained by clean catch procedure / Unknown Non-blood Collection / Unknown 06/16/2024 9:30 PM EST 06/16/2024 10:20 PM EST Nabil Coyne DO LAB URINE ORDERABLES Final Resu lt [facility] [address] [place] [address], [place] [phone] * Phencyclidine, urine (06/16/2024 9:30 PM EST) PCP Scrn, Ur Negative Negative LAB CHEMISTRY METHOD 06/16/2024 11:[address] [facility] Comment: Assay cutoff 25 ng/mL Semi-quantitative assay for screening purposes only. Unconfirmed screening result should not be used for non-medical purposes. *ALTERNATE METHOD CONFIRMATION DONE UPON REQUEST ONLY* Urine Urine specimen obtained by clean catch procedure / Unknown Non-blood Collection / Unknown 06/16/2024 9:30 PM EST 06/16/2024 10:20 PM EST us Nabil Coyne DO LAB URINE ORDERABLES Final Resu lt [facility] [address] [place] [address], [place] [phone] * Buprenorphine screen, urine (06/16/2024 9:30 PM EST) Buprenorphine Screen Urine Negative Negative LAB CHEMISTRY METHOD 06/16/2024 10:[address] [facility] Urine Urine specimen obtained by clean catch procedure / Unknown Non-blood Collection / Unknown 06/16/2024 9:30 PM EST 06/16/2024 10:[address] [facility] - 06/16/2024 10:55 PM EST Assay cutoff 5 ng/mL Semi-quantitative assay for screening purposes only. Unconfirmed screening result should not be used for non-medical purposes. *ALTERNATE METHOD CONFIRMATION DONE UPON REQUEST ONLY* us Nabil Coyne DO LAB URINE ORDERABLES Final Resu lt [facility] [address] [place] [address], [place] [phone] * (ABNORMAL) Drug abuse screen 8a panel, urine (06/16/2024 9:30 PM EST) [facility] Amphetamine Screen, Ur Negative Negative LAB CHEMISTRY METHOD 10:55 PM [facility] Comment:Certain OTC medicati ons containing ephedrine, phenylephrine, pseudoephedrine and phenylpropanolamine can cause false positive results. Barbiturate Screen, Ur Negative Negative LAB CHEMISTRY METHOD 10:55 PM [facility] Benzodiazepine Screen, Ur Negative Negative LAB CHEMISTRY METHOD 10:55 PM [facility] Cocaine Screen, Ur Negative Negative LAB CHEMISTRY METHOD 10:[address] [facility] Opiate Screen, Ur Negative Negative LAB CHEMISTRY METHOD 10:55 PM [facility] Cannabinoid (THC) Screen, Ur Positive(A ) Negative LAB CHEMISTRY METHOD 10:55 PM [facility] Comment:Specimens from patie nts taking pantoprazole sodium (Protonix) have been shown to produce false positive results. Oxycodone Screen, Ur Negative Negative LAB CHEMISTRY METHOD 5 10:55 PM [facility] Fentanyl, Ur Negative Negative LAB CHEMISTRY METHOD 5 10:55 PM [facility] Urine Urine specimen obtained by clean catch procedure / Unknown Non-blood Collection / Unknown 06/16/2024 9:30 PM EST 06/16/2024 10:[address] [facility] - 06/16/2024 10:55 PM EST Assay cutoffs: Amphetamines ? 1000 ng/mL Barbiturates ?200 ng/mL Benzodiazepines ?? 200 ng/mL Cocaine ? 300 ng/mL Fentanyl ?1 ng/mL Opiates ? 300 ng/mL Oxycodone ? 100 ng/mL THC ?50 ng/mL Semi-quantitative assay for screening purposes only. Unconfirmed screening result should not be used for non-medical purposes. *ALTERNATE METHOD CONFIRMATION DONE UPON REQUEST ONLY* us Nabil Coyne DO LAB URINE ORDERABLES Final Resu lt [facility] [address] [place] [address], * CBC auto differential (06/16/2024 9:20 PM EST) WBC 7.5 4.8 - 10.8 K/mcL LAB HEMETOLOGY METHOD 06/16/2024 9:[address] [facility] RBC 4.00 3.80 - 4.80 M/mcL LAB HEMETOLOGY METHOD 06/16/2024 9:48 PM [facility] Hemoglobin 12.0 11.5 - 16.0 g/dL LAB HEMETOLOGY METHOD 06/16/2024 9:48 PM [facility] Hematocrit 36.9 35.0 - 47.0 % LAB HEMETOLOGY METHOD 06/16/2024 9:48 PM [facility] MCV 92.0 79.0 - 98.0 FL LAB HEMETOLOGY METHOD 06/16/2024 9:48 PM [facility] MCH 29.9 27.0 - 32.0 pcg LAB HEMETOLOGY METHOD 06/16/2024 9:48 PM [facility] MCHC 32.5 32.0 - 37.0 g/dL LAB HEMETOLOGY METHOD 06/16/2024 9:48 PM [facility] RDW 12.4 11.0 - 15.0 % LAB HEMETOLOGY METHOD 06/16/2024 9:48 PM [facility] Platelets 193 130 - 400 K/mcL LAB HEMETOLOGY METHOD 06/16/2024 9:48 PM [facility] MPV 10.6 7.0 - 11.0 FL LAB HEMETOLOGY METHOD 06/16/2024 9:48 PM [facility] NRBC 0.0 <1.0 % LAB HEMETOLOGY METHOD 06/16/2024 9:48 PM [facility] NRBC Absolute 0.00 <0.10 K/mcL LAB HEMETOLOGY METHOD 06/16/2024 9:48 PM [facility] Neutrophils Relative 60.7 % LAB HEMETOLOGY METHOD 06/16/2024 9:48 PM [facility] Lymphocytes Relative 31.5 % LAB HEMETOLOGY METHOD 06/16/2024 9:48 PM [facility] Monocytes Relative 6.9 % LAB HEMETOLOGY METHOD 06/16/2024 9:48 PM [facility] Eosinophils Relative 0.4 % LAB HEMETOLOGY METHOD 06/16/2024 9:48 PM [facility] Basophils Relative 0.4 % LAB HEMETOLOGY METHOD 06/16/2024 9:48 PM [facility] Immature Granulocytes Relative 0.1 % LAB HEMETOLOGY METHOD 06/16/2024 9:48 PM [facility] Neutrophils Absolute 4.56 1.50 - 7.00 K/mcL LAB HEMETOLOGY METHOD 06/16/2024 9:48 PM [facility] Lymphocytes Absolute 2.37 1.00 - 5.00 K/[facility] LAB HEMETOLOGY METHOD 06/16/2024 9:[address] [facility] Monocytes Absolute 0.52 0.20 - 1.00 K/[facility] LAB HEMETOLOGY METHOD 06/16/2024 9:[address] [facility] Eosinophils Absolute 0.03 0.00 - 0.50 K/[facility] HEMETOLOGY METHOD 06/16/2024 9:[address] [facility] Basophils Absolute 0.03 0.00 - 0.20 K/[facility] HEMETOLOGY METHOD 06/16/2024 9:[address] [facility] Immature Granulocytes Absolute 0.01 0.00 - 0.03 K/[facility] HEMETOLOGY METHOD 06/16/2024 9:[address] [facility] Blood Venous blood specimen / Unknown Venipuncture / Unknown 06/16/2024 9:20 PM EST 06/16/2024 9:28 PM EST us Nabil Coyne DO LAB BLOOD ORDERABLES Final Resu lt [facility] [address] [place] [address], * (ABNORMAL) Salicylate level (06/16/2024 9:20 PM EST) Salicylate Level <1.7(L) 2.0 - 29.0 mg/dL LAB CHEMISTRY METHOD 06/16/2024 9:[address] [facility] Blood Venous blood specimen / Unknown Venipuncture / Unknown 06/16/2024 9:20 PM EST 06/16/2024 9:28 PM EST us Nabil Coyne DO LAB BLOOD ORDERABLES Final Resu lt [facility] [address] [place] [address], [place] [phone] * (ABNORMAL) Acetaminophen level (06/16/2024 9:20 PM EST) Acetaminophen Level <2.0(L) 10.0 - 30.0 mcg/mL LAB CHEMISTRY METHOD 06/16/2024 9:[address] [facility] Blood Venous blood specimen / Unknown Venipuncture / Unknown 06/16/2024 9:20 PM EST 06/16/2024 9:28 PM EST Nabil Coyne DO LAB BLOOD ORDERABLES Final Resu lt Performing Organization Address [facility]/ZIP Co de Phone Number [facility] [address] [place] [address], [place] [phone] * Ethanol (06/16/2024 9:20 PM EST) Pathologist [facility] Ethanol Level <3 0 - 10 mg/dL LAB CHEMISTRY METHOD 06/16/2024 9:[address] [facility] Blood Venous blood specimen / Unknown Venipuncture / Unknown 06/16/2024 9:20 PM EST 06/16/2024 9:28 PM EST Nabil Coyne DO LAB BLOOD ORDERABLES Final Resu lt Performing Organization Address City/[facility]/ZIP Co de Phone Number [facility] [address] [place] [address], [place] [phone] * (ABNORMAL) Comprehensive metabolic panel (06/16/2024 9:20 PM EST) Sodium 134 133 - 145 mmol/L LAB CHEMISTRY METHOD 06/16/2024 9:[address] [facility] Potassium 3.7 3.5 - 5.5 mmol/L LAB CHEMISTRY METHOD 06/16/2024 9:[address] [facility] Chloride 101 96 - 110 mmol/L LAB CHEMISTRY METHOD 06/16/2024 9:55 PM [facility] CO2 24 21 - 32 mmol/L LAB CHEMISTRY METHOD 06/16/2024 9:55 PM [facility] Anion Gap 9 3 - 11 LAB CHEMISTRY METHOD 06/16/2024 9:55 PM [facility] Glucose 102(H) 70 - 100 mg/dL LAB CHEMISTRY METHOD 06/16/2024 9:55 PM [facility] BUN 18 5 - 25 mg/dL LAB CHEMISTRY METHOD 06/16/2024 9:55 PM [facility] Creatinine 0.82 0.50 - 1.10 mg/dL LAB CHEMISTRY METHOD 06/16/2024 9:55 PM [facility] eGFR 100 >=60 mL/min/1. 73m2 LAB CHEMISTRY METHOD 06/16/2024 9:55 PM [facility] Comment:Calculation based on the??Chronic Kidney Disease Epidemiology Collaboration (CKD-EPI) equation refit??without adjustment for race. BUN/Creatinine Ratio 22.0 LAB CHEMISTRY METHOD 06/16/2024 9:55 PM [facility] Calcium 10.0 8.5 - 10.5 mg/dL LAB CHEMISTRY METHOD 06/16/2024 9:55 PM [facility] AST (SGOT) 23 10 - 42 unit/L LAB CHEMISTRY METHOD 06/16/2024 9:55 PM [facility] ALT (SGPT) 30 10 - 60 unit/L LAB CHEMISTRY METHOD 06/16/2024 9:55 PM [facility] Alkaline Phosphatase 66 42 - 121 unit/L LAB CHEMISTRY METHOD 06/16/2024 9:55 PM [facility] Total Protein 8.3(H) 6.0 - 8.0 g/dL LAB CHEMISTRY METHOD 06/16/2024 9:55 PM [facility] Albumin 4.6 3.2 - 5.0 g/dL LAB CHEMISTRY METHOD 06/16/2024 9:[address] [facility] Total Bilirubin 0.2 0.0 - 1.4 mg/dL LAB CHEMISTRY METHOD 06/16/2024 9:[address] [facility] Blood Venous blood specimen / Unknown Venipuncture / Unknown 06/16/2024 9:20 PM EST 06/16/2024 9:28 PM EST us Nabil Coyne DO LAB BLOOD ORDERABLES Final Resu lt [facility] [address] [place] [address], [place] [phone] documented in this encounter Visit Diagnoses Diagnosis Aggression- Primary Explosive personality disorder Anxiety disorder, unspecified type Current episode of major depressive disorder without prior episode, unspecified depression episode severity documented in this encounter Administered Medications Inactive Administered Medications - up to 3 most recent administrations Medication Order MAR Action Action Date Dose Rate Site chlorproMAZINE (THORAZINE) tablet 50 mg 50 mg, oral, 3 times daily PRN, AGITATION, Starting on Aminata 06/17/24 at 0235 Given 06/16/2024 11:00 PM EST 50 mg haloperidol lactate (HALDOL) injection 5 mg 5 mg, intramuscular, Once, On Aminata 06/17/24 at 0034, For 1 dose, May be ordered via either intramuscular or intravenous route. If ordered IV, maximum of 5 mg/minute. Given 06/17/2024 12:55 AM EST 5 mg Left Anterior Thigh OXcarbazepine (TRILEPTAL) tablet 150 mg 150 mg, oral, 2 times daily, First dose on Aminata 06/17/24 at 0240, HAZARDOUS Drug Precautions - Low Risk (Category A/NIOSH Group 3) Reproductive Risk Only: - Single pair of ASTM standard [id number] certified chemotherapy gloves - Eye protection (goggles or face shield) required only with a potential for facial contact (i.e. concern for spitting or vomiting of the dose during or after administration) - Staff at reproductive risk (actively trying to conceive, or may be become , and ): chemo certified gown and an N95 respirator required when crushing meds (crushing of tabs allowed only in closed pouches) or opening of capsules only for allowable dosage forms Given 06/16/2024 11:00 PM EST 150 mg documented in this encounter Historical Medications * This list may reflect changes made after this encounter. methadone 10 mg/mL syringe Take 95 mg by mouth at bedtime. TAKES SECOND DOSE AT 1700 Max Daily Amount: 95 mg methadone 10 mg/mL syringe Take 105 mg by mouth 1 (one) time each day. LAST DOSE 5PM 06/16/2024 Max Daily Amount: 200 mg QUEtiapine (SEROquel) 50 mg tablet Take 1 tablet (50 mg total) by mouth 2 (two) times a day if needed (anxiety). for anxiety 03/31/2024 OXcarbazepine (TRILEPTAL) 150 mg tablet Take 1 tablet (150 mg total) by mouth 2 (two) times a day. 06/16/2024 lamoTRIgine (LaMICtal) 100 mg tablet Take 1 tablet (100 mg total) by mouth 1 (one) time each day. 03/31/2024 clonazePAM (KlonoPIN) 1 mg tablet Take 1 tablet (1 mg total) by mouth 3 (three) times a day. chlorproMAZINE (THORAZINE) 50 mg tablet Take 1 tablet (50 mg total) by mouth 3 (three) times a day if needed (AGITATION). 06/16/2024 added in this encounter Active and Recently Administered Medications Times are shown in EST. Scheduled Medication Order 06/15/2024 06/16/2024 06/17/2024 clonazePAM (KlonoPIN) tablet 1 mg 1 mg, oral, 3 times daily, First dose on [facility] 06/17/24 at 0900, HAZARDOUS Drug Precautions - Low Risk (Category A/NIOSH Group 3) Reproductive Risk Only: - Single pair of ASTM standard [id number] certified chemotherapy gloves - Eye protection (goggles or face shield) required only with a potential for facial contact (i.e. concern for spitting or vomiting of the dose during or after administration) - Staff at reproductive risk (actively trying to conceive, or may be become , and ): chemo certified gown and an N95 respirator required when crushing meds (crushing of tabs allowed only in closed pouches) or opening of capsules only for allowable dosage forms 0900 (Canceled Entry - Provider: Automatic Discharge Provider - Comment: Automatically canceled at discontinue of medication order)1400 (Canceled Entry - Provider: Automatic Discharge Provider - Comment: Automatically canceled at discontinue of medication order) haloperidoL (HALDOL) tablet 5 mg 5 mg, oral, Once, On Fri06/17/24 at 0034, For 1 dose 0101 (Not Given - Provider: Caesar Sanchez RN - Reason: Other - Comment: PROVIDER CHANGED THE PLAN) haloperidol lactate (HALDOL) injection 5 mg 5 mg, intramuscular, Once, On Fri06/16/24 at 2336, For 1 dose, May be ordered via either intramuscular or intravenous route. If ordered IV, maximum of 5 mg/minute. 0056 (Not Given - Provider: Caesar Sanchez RN - Reason: Other - Comment: PROVIDER CHANGED THE PLAN) haloperidol lactate (HALDOL) injection 5 mg (COMPLETED) 5 mg, intramuscular, Once, On Fri06/17/24 at 0034, For 1 dose, May be ordered via either intramuscular or intravenous route. If ordered IV, maximum of 5 mg/minute. 0055 (Given - Provid er: Caesar Sanchez RN) lamoTRIgine (LaMICtal) tablet 100 mg 100 mg, oral, Daily, First dose on Fri06/17/24 at 0900 0900 (Canceled Entry - Provider: Automatic Discharge Provider - Comment: Automatically canceled at discontinue of medication order) LORazepam (ATIVAN) injection 2 mg 2 mg, intramuscular, Once, On Fri06/16/24 at 2336, For 1 dose, Prior to IV use, lorazepam injection should be DILUTED with an equal volume of compatible solution; Rate of administration should NOT exceed 2 mg/min. 0057 (Not Given - Provider: Caesar Sanchez RN - Reason: Other - Comment: PROVIDER CHANGED MEDICATION ORDER) methadone (DOLOPHINE) tablet 105 mg 105 mg, oral, Daily, First dose on Fri06/17/24 at 0900 0900 (Canceled Entry - Provider: Automatic Discharge Provider - Comment: Automatically canceled at discontinue of medication order) methadone (DOLOPHINE) tablet 95 mg 95 mg, oral, Daily with dinner, First dose on Aminata 06/17/24 at 1700 OXcarbazepine (TRILEPTAL) tablet 150 mg 150 mg, oral, 2 times daily, First dose on Aminata 06/17/24 at 0240, HAZARDOUS Drug Precautions - Low Risk (Category A/NIOSH Group 3) Reproductive Risk Only: - Single pair of ASTM standard [id number] certified chemotherapy gloves - Eye protection (goggles or face shield) required only with a potential for facial contact (i.e. concern for spitting or vomiting of the dose during or after administration) - Staff at reproductive risk (actively trying to conceive, or may be become , and ): chemo certified gown and an N95 respirator required when crushing meds (crushing of tabs allowed only in closed pouches) or opening of capsules only for allowable dosage forms 2300 (Given - Provider: Caesar Sanchez RN - Comment: patient took her own before) 0900 (Canceled Entry - Provider: Automatic Discharge Provider - Comment: Automatically canceled at discontinue of medication order) PRN Medication Order 06/15/2024 06/16/2024 06/17/2024 chlorproMAZINE (THORAZINE) tablet 50 mg 50 mg, oral, 3 times daily PRN, AGITATION, Starting on Aminata 06/17/24 at 0235 2300 (Given - Provider: Caesar Sanchez RN - Comment: gave patient med from her bottle) QUEtiapine (SEROquel) tablet 50 mg 50 mg, oral, 2 times daily PRN, anxiety, Starting on Aminata 06/17/24 at 0237 documented in this encounter Orders Medications Ordered That Wade ht Not Have Been Administered Count Last Ordered Date First Ordered Date clonazePAM (KlonoPIN) tablet 1 mg 1 025 haloperidoL (HALDOL) tablet 5 mg 1 06/17/19 lamoTRIgine (LaMICtal) tablet 100 mg 1 10/2024 methadone (DOLOPHINE) tablet 105 mg 1 06/17 methadone (DOLOPHINE) tablet 95 mg 1 2024 OXcarbazepine (TRILEPTAL) tablet 150 mg 1 0 06/17/2024 QUEtiapine (SEROquel) tablet 50 mg 1 2024 haloperidol lactate (HALDOL) injection 5 mg 1 06/16/2024 LORazepam (ATIVAN) injection 2 mg 1 025 Consult Count Last Ordered Date First Orde red Date IP CONSULT TO CUSTOM STOCK MAKER 1 06/17/2024 documented in this encounter Care Teams Hydrometeorology Teacher Relationship Specialty Start Date End Date Physician, Pcp Unknown PCP - General 06/16/24 documented as of this encounter
--- OUTSIDE RECORDS SUMMARY | 2024-06-23 09:16 | XMS_ITS | Clinical Summary ---
Author Organization [facility] Address [address] [place] [address] Care Team Providers Care Litigation Support Analyst Name Role Phone Unavailable Primary Care Provider Unavailabl e Social History Tobacco Use Types Packs/Day Years Used Date Smoking Tobacco: Never Assessed Comments Unknown Sex and Gender Information Value Date Recorded Sex Assigned at Not on file Legal Sex Female 12:17 PM EST Gender Identity Not on file Sexual Orientation Not on file Plan of Treatment Not on file
== END 2024-06-23 09:51 | disposition home or self-care (01) ==
PROVIDERS: PCP Internal Medicine; Visit Provider Internal Medicine
DX: G40.909 Epilepsy, unspecified, not intractable, without status epilepticus (principal); F34.89 Other specified persistent mood disorders; F31.77 Bipolar disorder, in partial remission, most recent episode mixed; F41.0 Panic disorder [episodic paroxysmal anxiety]

== ENCOUNTER → 2024-06-23 08:32 | Outpatient (BNVA) | payer OTHER, SELFPAY | PROVIDERS: PCP Internal Medicine; Visit Provider Internal Medicine | DX: F34.89 Other specified persistent mood disorders (principal); G40.909 Epilepsy, unspecified, not intractable, without status epilepticus; F41.0 Panic disorder [episodic paroxysmal anxiety]; F33.2 Major depressive disorder, recurrent severe without psychotic features | CPT/HCPCS: 99212 ==

== ENCOUNTER 2024-08-06 11:28 | Outpatient (AMB) | payer OTHER, SELFPAY ==
[2024-08-06 11:38] VITALS: BP 118/72; PULSE 90; O2SAT 97; BMI 17.8
--- NOTE | 2024-08-06 11:38 | MHC.PC.OV ---
Vital Signs 08/06/24 11:38 Height 5 ft 3 in Weight 100 lb 4 oz BMI 17.8 BP 118/72 Blood Pressure Location Rt brachial Position Sitting Pulse 90 Pulse Source Pulse Oximeter Pulse Oximetry (%) 97 Oxygen Delivery Method Room Air Intake Visit Reasons: Annual PE Allergies prochlorperazine [From COMPAZINE] Allergy (Severe, Verified 08/06/24 11:41) AGITATION tramadol [TRAMADOL] Allergy (Intermediate, Verified 08/06/24 11:41) SEIZURES Compazine Allergy (Unknown, Verified 08/06/24 11:41) agitation, jittery Medication List - Last Reconciled 08/06/24 by Kalyani Benton MD cholecalciferol (vitamin D3) 25 mcg PO DAILY 90 days clonazepam 1 mg PO TID PRN 30 days clonazepam 1 mg PO TID 30 days methadone 90 mg PO QPM methadone 105 mg PO DAILY oxcarbazepine take one tab in am and 2 at night quetiapine (Seroquel) 50 mg PO BID 90 days Tobacco use date assessed: 08/06/24 Dental Screening Dental Screen Date: 08/06/24 Did you have a dental visit in the last 12 months?: Yes Did you have a dental problem in the last 6 months where you did not have access to dental care?: No Was dental information given to patient?: Patient has dentist HPI Annual PE HPI Details Physical exam appointment - The patient is a 28-year-old female presenting with concerns regarding a potential and management of significant weight loss and decreased appetite. - Following the insertion of an IUD, the patient experienced severe bleeding and large clots, suspected to be a miscarriage, with passage of tissue resembling a fetus at home. Subsequent MRI showed no retained tissue, and HCG levels normalized. - The patient has been losing weight, has a BMI of 17.8 (underweight), reports a loss of appetite, occasional nausea, frequent and intense dizziness, and is unable to consume food easily despite being hungry. - Patient has been ingesting nutritional supplements like Premier Protein shakes and Ensure Plus, struggling with their cost, and has been consuming cannabis which may affect appetite. - There's a history of bleeding hemorrhoids, not surgically managed due to a prior and other medical issues. Health Maintenance - Discussion on addressing low Vitamin D levels and the need for a new prescription. - Advised discontinuing cannabis to assess any improvement in appetite and weight. Medications - Clonazepam 1 mg, three times a day for anxiety - Quetiapine 50 mg, twice a day for mood stabilization - Premier Protein shakes and Ensure Plus for nutritional supplementation - New psychiatric medication initiated, unspecified due to pharmacy availability issues Diagnostic results - Labs: Previous tests indicated HCG levels returned to zero after miscarriage. - Diagnostic Tests: MRI results showed no retained tissue post-miscarriage. Patient Instructions - Undergo a test as part of the current evaluation. - Check with pharmacy regarding medical insurance coverage for Ensure. 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 - Discontinue cannabis to observe changes in appetite and weight. - Continue to work with psychiatrist for ongoing management of psychiatric medications. Review of Systems - General: No fever no chills - Neurological: No headaches no dizziness - Ear nose throat: No sore throat no hearing difficulty no ear pain - Cardiovascular: No syncope, no chest pain, no palpitations - Gastrointestinal: No nausea or diarrhea - Endocrine: No polyuria polydipsia no heat intolerance - Genitourinary: No dysuria - Skin: No new complaints Physical Exam General: Cooperative, healthy appearing, comfortable, no acute distress Orientation: Patient oriented x3 Limitations: None Head: Normal to inspection Ears: Within normal limit visually Nose: Normal external nose present Face and sinus: Normal facial exam Eyes: Appearance normal, extraocular movement intact pupils reactive Neck: Normal visual inspection and supple Respiratory: Normal respiratory effort and able to speak in complete sentences. Clear to auscultation, no stridor Cardiovascular: S1 and S2 Breast exam through OBGYN GI: Normal to inspection. Soft to palpation and nontender Skin: Turgor normal, no acute findings Neuro: Patient oriented x3, motor sensory intact, balance intact, tandem pass Extremities: Normal to inspection, [facility] Medical History Tachycardia Seizures Sleep apnea Depression Fibromyalgia Suicidal ideation Methadone maintenance therapy patient Anxiety Endometriosis determined by laparoscopy Surgical History History of esophagogastroduodenoscopy (EGD) History of appendectomy History of laparoscopy Family History Father Substance use disorder Mental health disorder Mother Fibromyalgia Herniation of intervertebral disc of thoracic region Endometriosis Social History Household Members: Family and Children Household Members Other:: Mother, grandmother, and her son Housing: Apartment Are you a primary childcare center administrator to a significant other at home: No Do you presently have visiting nurse or other home services: No Alcohol intake: current Alcohol intake frequency: does not drink Patient Tobacco Use Status: Former Tobacco user Tobacco use type: Cigarette Cigarettes Per Day: 2 Years Smoked: 10 years e-Cigarette/Vaping Use: Currently Using service: No Current occupational status: unemployed and disabled Cognitive needs: No Hearing needs: No Vision needs: No Questionnaire PHQ-9 Over the last 2 weeks, how often have you been bothered by any of the following problems? 32910 - PHQ-9 Billing: Patient declined-do not bill Source: Developed by Drs. Jared Canela, Ayesha Cat, David Pedro and colleagues, with an educational adriel from [employer]. Thrive Questionnaire Date Thrive assessed: 08/06/24 I am a: Patient What is your living situation today?: I have a steady place to live Within the past 12 months, did the food you bought not last and you didn't have the money to get more?: I choose not to answer this question Within the past 12 months, did you worry whether your food would run out before you got money to buy more?: I choose not to answer this question Do you have trouble paying for medicines?: I choose not to answer this question Do you have trouble getting transportation to medical appointments?: I choose not to answer this question Do you have trouble paying your heating and electricity bill?: I choose not to answer this question Do you have trouble taking care of your child, family member or friend?: Yes Do you have trouble with day-to-day activities such as bathing, preparing meals, shopping, managing finances, etc.?: Yes Are you currently unemployed and looking for a job?: No Are you interested in more education?: No Please select the resources that you would like help with: None THRIVE Score: 0 AUDIT C Alcohol Use Questionnaire (AUDIT-C) 1. How often do you have a drink containing alcohol?: Monthly or less 2. How many drinks containing alcohol do you have on a typical day when you are drinking?: 1 or 2 3. How often do you have six or more drinks on one occasion?: Never Total Score: 1 Score Reviewed/Action Taken: Yes SHEFALI-7 AMB Questionnaire SHEFALI-7 Date SHEFALI - 7 assessed: 06/01/24 Source: Developed by Drs. Jared Canela, Ayesha Cat, David Pedro and colleagues, with an educational adriel from [employer]. Physical exam (Primary Care) Vital Signs: Last Vital Signs Pulse 90 08/06/24 11:38 BP 118/72 08/06/24 11:38 Pulse Ox 97 08/06/24 11:38 Oxygen Delivery Method Room Air 08/06/24 11:38 BMI result Body Mass Index 17.8 Tobacco/Smoking Status: Tobacco use Status Tobacco use date assessed 08/06/24 08/06/24 11:42 Patient Tobacco Use Status Former Tobacco user 08/06/24 11:42 Tobacco use type Cigarette 08/06/24 11:42 e-Cigarette/Vaping Use Currently Using 08/06/24 11:42 Thrive Assessment: Date of Thrive Assessment Date Thrive assessed 08/06/24 08/06/24 11:42 Coding Level of Care Code Est Pt Level 4 (86740) Est Pt Prev Care 18-39y(32952) Diagnoses Encounter for general adult medical examination with abnormal findings Z00.01 Underweight (BMI < 18.5) R63.6; Z68.1 Appetite absent R63.0 Bipolar disorder, in partial remission, most recent episode mixed F31.77 Active/Remission status: in partial remission Most recent bipolar episode type: mixed Tachycardia R00.0 Cannabis use disorder F12.90 Panic anxiety syndrome F41.0 Severe episode of recurrent major depressive disorder, without psychotic features F33.2 Psychotic features: without psychotic features Assessment & Plan Assessment & Plan (1) Encounter for general adult medical examination with abnormal findings: Code(s): Z00.01 - Encounter for general adult medical examination with abnormal findings Category: Medical (2) Underweight (BMI < 18.5): Code(s): R63.6 - Underweight; Z68.1 - Body mass index [BMI] 19.9 or less, adult Category: Medical (3) Appetite absent: Code(s): R63.0 - Anorexia Category: Medical (4) Bipolar disorder: Code(s): F31.9 - Bipolar disorder, unspecified Category: Medical Qualifiers: Active/Remission status: in partial remission Most recent bipolar episode type: mixed Qualified Code(s): F31.77 - Bipolar disorder, in partial remission, most recent episode mixed (5) Tachycardia: Code(s): R00.0 - Tachycardia, unspecified Category: Medical (6) Cannabis use disorder: Code(s): F12.90 - Cannabis use, unspecified, uncomplicated Category: Medical (7) Panic anxiety syndrome: Code(s): F41.0 - Panic disorder [episodic paroxysmal anxiety] Category: Medical (8) Recurrent major depression-severe: Code(s): F33.2 - Major depressive disorder, recurrent severe without psychotic features Category: Medical Qualifiers: Psychotic features: without psychotic features Qualified Code(s): F33.2 - Major depressive disorder, recurrent severe without psychotic features Plan Physical exam appointment - The patient is a 28-year-old female presenting with concerns regarding a potential and management of significant weight loss and decreased appetite. - Following the insertion of an IUD, the patient experienced severe bleeding and large clots, suspected to be a miscarriage, with passage of tissue resembling a fetus at home. Subsequent MRI showed no retained tissue, and HCG levels normalized. - The patient has been losing weight, has a BMI of 17.8 (underweight), reports a loss of appetite, occasional nausea, frequent and intense dizziness, and is unable to consume food easily despite being hungry. - Patient has been ingesting nutritional supplements like Premier Protein shakes and Ensure Plus, struggling with their cost, and has been consuming cannabis which may affect appetite. - There's a history of bleeding hemorrhoids, not surgically managed due to a prior and other medical issues. Health Maintenance - Discussion on addressing low Vitamin D levels and the need for a new prescription. - Advised discontinuing cannabis to assess any improvement in appetite and weight. Medications - Clonazepam 1 mg, three times a day for anxiety - Quetiapine 50 mg, twice a day for mood stabilization - Premier Protein shakes and Ensure Plus for nutritional supplementation - New psychiatric medication initiated, unspecified due to pharmacy availability issues Diagnostic results - Labs: Previous tests indicated HCG levels returned to zero after miscarriage. - Diagnostic Tests: MRI results showed no retained tissue post-miscarriage. Patient Instructions - Undergo a test as part of the current evaluation. - Check with pharmacy regarding medical insurance coverage for Ensure. 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 - Discontinue cannabis to observe changes in appetite and weight. - Continue to work with psychiatrist for ongoing management of psychiatric medications. Medications: New food supplemt, lactose-reduced (Ensure High Protein oral liquid) 1 ea PO BID 30 days 5,688 mL 6RF wt lose R63.0 - Anorexia, R63.6 - Underweight, Z68.1 - Body mass index [BMI] 19.9 or less, adult Changed From quetiapine (Seroquel) 50 mg PO BID 90 days 180 tabs 0RF anxiety To quetiapine (Seroquel) 50 mg PO BID 30 days 60 tabs 0RF anxiety Refilled cholecalciferol (vitamin D3) 25 mcg PO DAILY 90 days 90 caps 1RF clonazepam 1 mg PO TID 30 days PRN 90 tabs 0RF anxiety Discontinued oxcarbazepine Discontinued Reason: Doctor's Order take one tab in am and 2 at night 90 tabs 0RF clonazepam Discontinued Reason: Doctor's Order 1 mg PO TID 30 days 90 tabs 0RF
== END 2024-08-06 12:31 | disposition home or self-care (01) ==
LOC: HO.HMCC 11:29
PROVIDERS: PCP Internal Medicine; Visit Provider Internal Medicine
DX: Z00.01 Encounter for general adult medical examination with abnormal findings (principal); R63.6 Underweight; R63.0 Anorexia; F31.77 Bipolar disorder, in partial remission, most recent episode mixed; R00.0 Tachycardia, unspecified; Z68.1 Body mass index [BMI] 19.9 or less, adult; F12.90 Cannabis use, unspecified, uncomplicated; F41.0 Panic disorder [episodic paroxysmal anxiety]

== ENCOUNTER → 2024-08-06 11:28 | Outpatient (BNVA) | payer OTHER, SELFPAY | PROVIDERS: PCP Internal Medicine; Visit Provider Internal Medicine | DX: Z00.01 Encounter for general adult medical examination with abnormal findings (principal); R63.6 Underweight; K64.9 Unspecified hemorrhoids; R63.0 Anorexia; F31.77 Bipolar disorder, in partial remission, most recent episode mixed; R00.0 Tachycardia, unspecified; F12.90 Cannabis use, unspecified, uncomplicated; F41.0 Panic disorder [episodic paroxysmal anxiety]; Z68.1 Body mass index [BMI] 19.9 or less, adult | CPT/HCPCS: 99212 ==

== ENCOUNTER 2024-09-15 10:54 | Outpatient (AMB) | payer OTHER, SELFPAY ==
[2024-09-15 10:58] VITALS: BP 112/76; PULSE 96; O2SAT 99; BMI 17.2
--- NOTE | 2024-09-15 10:58 | A.OFFPC_ITS ---
Vital Signs 09/15/24 10:58 Height 5 ft 3 in Weight 97 lb 6 oz BMI 17.2 BP 112/76 Blood Pressure Location Rt brachial Position Sitting Pulse 96 Pulse Source Pulse Oximeter Pulse Oximetry (%) 99 Oxygen Delivery Method Room Air Intake Visit Reasons: Med refill Allergies prochlorperazine [From COMPAZINE] Allergy (Severe, Verified 09/15/24 10:59) AGITATION tramadol [TRAMADOL] Allergy (Intermediate, Verified 09/15/24 10:59) SEIZURES Compazine Allergy (Unknown, Verified 09/15/24 10:59) agitation, jittery Medication List - Last Reconciled 09/15/24 by Kalyani Benton MD cholecalciferol (vitamin D3) 25 mcg PO DAILY 90 days clonazepam 1 mg PO TID PRN 30 days dextromethorphan-bupropion 45-105 mg ER (Auvelity) tabs PO food supplemt, lactose-reduced (Ensure High Protein oral liquid) 1 ea PO BID 30 days methadone 90 mg PO QPM methadone 105 mg PO DAILY quetiapine (Seroquel) 50 mg PO BID 30 days Tobacco use date assessed: 09/15/24 Dental Screening Dental Screen Date: 09/15/24 Did you have a dental visit in the last 12 months?: No Did you have a dental problem in the last 6 months where you did not have access to dental care?: No Was dental information given to patient?: Patient has dentist HPI Med refill HPI Details History - The patient is a 28-year-old female pr esenting with a need for medication refills and management. Usually she gets the medications through Psychiatry but patient is not able to get in touch with them - The patient is currently using Clonaze steven taken three times a day and Quetiapine 50 mg twice a day. - The patient mentioned being recently p rescribed Auvelity, a combination of dextromethorphan and bupropion, through Psychiatry, which she has been taking for two weeks. This medication was prescribed for depression, given her inability to tolerate SSRIs due to adverse effects such as anger and jitteriness, as experienced with medications like Zoloft. - The patient reported experiencing diff iculty in scheduling an emergency appointment with her psychiatrist due to system issues at the mental health facility. - The patient has a history of using tel ephonic consultations with her psychiatrist rather than in-person visits. - Concerning her child, the patient desc ribed challenges with eating, namely gagging and vomiting upon contact with food, leading their healthcare provider to maintain a gastric tube for feeding. The child is noted to have a pending assessment for autism due to hypersensitivity with food textures and a lack of oral intake. Problem List - Refill of Clonazepam and Quetiapine fo r panic anxiety syndrome and depression - New medication request for Auvelity - Feeding difficulties in child with pot ential autism and use of gastric tube Patient Instructions - Your medication will be available at [facility] soon. - Follow up with your psychiatrist for s cheduling issues and continue to try to get an appointment for further management. - Encourage safe play activities to help with your child's sensory interactions, but avoid forcing food into the child's mouth. - Ensure the gastric tube remains proper ly in place for your child as recommended by your physician. - Continue monitoring your child's devel opment and consult with a specialist for further evaluation. Review of Systems - General: No fever no chills - Neurological: No headaches no dizziness - Ear nose throat: No sore throat no hearing difficulty no ear pain - Cardiovascular: No syncope, no chest pain, no palpitations - Gastrointestinal: No nausea vomiting or diarrhea - Endocrine: No polyuria polydipsia no heat intolerance - Genitourinary: No dysuria , no blood in urine Physical Exam - General: No acute distress - HEENT: No acute findings - Neck: Supple - Respiratory system: Able to talk in f ull sentences, no audible wheeze - Cardiovascular: S1-S2 regular in rate and rhythm - Gastrointestinal: No pain - Extremities: No new findings - 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 awake oriented x3 motor se nsory intact - Skin: Normal turgor PFSH Medical History Tachycardia Seizures Sleep apnea Depression Fibromyalgia Suicidal ideation Methadone maintenance therapy patient Anxiety Endometriosis determined by laparoscopy Surgical History History of esophagogastroduodenoscopy (EGD) History of appendectomy History of laparoscopy Family History Father Substance use disorder Mental health disorder Mother Fibromyalgia Herniation of intervertebral disc of thoracic region Endometriosis Social History Household Members: Family and Children Household Members Other:: Mother, grandmother, and her son Housing: Apartment Are you a primary animal care specialist to a significant other at home: No Do you presently have visiting nurse or other home services: No Alcohol intake: current Alcohol intake frequency: does not drink Patient Tobacco Use Status: Former Tobacco user Tobacco use type: Cigarette Cigarettes Per Day: 2 Years Smoked: 10 years Packs per year/per ci.00 e-Cigarette/Vaping Use: Currently Using service: No Current occupational status: unemployed and disabled Cognitive needs: No Hearing needs: No Vision needs: No Questionnaire PHQ-9 Over the last 2 weeks, how often have you been bothered by any of the following problems? 1. Little interest or pleasure in doing things: nearly every day 2. Feeling down, depressed, or hopeless: nearly every day 3. Trouble falling or staying asleep, or sleeping too much: nearly every day 4. Feeling tired or having little energy: nearly every day 5. Poor appetite or overeating: nearly every day 6. Feeling bad about yourself - or that you are a failure or have let yourself or your family down: nearly every day 7. Trouble concentrating on things, such as reading the newspaper or watching television: nearly every day 8. Moving or speaking so slowly that other people could have noticed. Or the opposite - being so fidgety or restless that you have been moving around a lot more than usual: nearly every day 9. Thoughts that you would be better off or of hurting yourself in some way: several days Total score: 25 Depression Screening Interpretation: Positive Depression Screening Follow-up: Existing condition and In treatment Depression Screening Done: Yes 44000 - PHQ-9 Billing: Yes Source: Developed by Drs. Jared Canela, Ayesha Cat, David Pedro and colleagues, with an educational adriel from [employer]. Thrive Questionnaire Date Thrive assessed: 08/06/24 AUDIT C Alcohol Use Questionnaire (AUDIT-C) 1. How often do you have a drink containing alcohol?: Monthly or less 2. How many drinks containing alcohol do you have on a typical day when you are drinking?: 1 or 2 3. How often do you have six or more drinks on one occasion?: Never Total Score: 1 Score Reviewed/Action Taken: Yes SHEFALI-7 AMB Questionnaire SHEFALI-7 Date SHEFALI - 7 assessed: 06/01/24 Source: Developed by Drs. Jared Canela, Ayesha Cat, David Pedro and colleagues, with an educational adriel from [employer]. Physical exam (Primary Care) Vital Signs: Last Vital Signs Pulse 96 09/15/24 10:58 BP 112/76 09/15/24 10:58 Pulse Ox 99 09/15/24 10:58 Oxygen Delivery Method Room Air 09/15/24 10:58 BMI result Body Mass Index 17.2 Tobacco/Smoking Status: Tobacco use Status Tobacco use date assessed 09/15/24 09/15/24 11:03 Patient Tobacco Use Status Former Tobacco user 09/15/24 11:03 Tobacco use type Cigarette 09/15/24 11:03 e-Cigarette/Vaping Use Currently Using 09/15/24 11:03 PHQ-9: PHQ-9 Score PHQ-9: Total score 09/15/24 11:09 Depression Screening Interpretation: Positive Depression Screening Follow-up: Existing condition and In treatment Thrive Assessment: Date of Thrive Assessment Date Thrive assessed 08/06/24 09/15/24 11:03 Coding Level of Care Code Est Pt Level 3 (69965) Complex EM visit Add On G2211 Diagnoses Panic anxiety syndrome F41.0 Severe episode of recurrent major depressive disorder, without psychotic features F33.2 Psychotic features: without psychotic features Bipolar disorder, in partial remission, most recent episode mixed F31.77 Active/Remission status: in partial remission Most recent bipolar episode type: mixed Additional Codes PHQ-9 - 00938 - PHQ-9 Billing: Yes ([id number]) Assessment & Plan Assessment & Plan (1) Panic anxiety syndrome: Code(s): F41.0 - Panic disorder [episodic paroxysmal anxiety] Category: Medical (2) Recurrent major depression-severe: Code(s): F33.2 - Major depressive disorder, recurrent severe without psychotic features Category: Medical Qualifiers: Psychotic features: without psychotic features Qualified Code(s): F33.2 - Major depressive disorder, recurrent severe without psychotic features (3) Bipolar disorder: Code(s): F31.9 - Bipolar disorder, unspecified Category: Medical Qualifiers: Active/Remission status: in partial remission Most recent bipolar episode type: mixed Qualified Code(s): F31.77 - Bipolar disorder, in partial remission, most recent episode mixed Plan History - The patient is a 28-year-old female presenting with a need for medication refills and management. Usually she gets the medications through Psychiatry but patient is not able to get in touch with them - The patient is currently using Clonazepam taken three times a day and Quetiapine 50 mg twice a day. - The patient mentioned being recently prescribed Auvelity, a combination of dextromethorphan and bupropion, through Psychiatry, which she has been taking for two weeks. This medication was prescribed for depression, given her inability to tolerate SSRIs due to adverse effects such as anger and jitteriness, as experienced with medications like Zoloft. - The patient reported experiencing difficulty in scheduling an emergency appointment with her psychiatrist due to system issues at the [facility] facility. - The patient has a history of using telephonic consultations with her psychiatrist rather than in-person visits. - Concerning her child, the patient described challenges with eating, namely gagging and vomiting upon contact with food, leading their healthcare provider to maintain a gastric tube for feeding. The child is noted to have a pending assessment for autism due to hypersen sitivity with food textures and a lack of oral intake. Problem List - Refill of Clonazepam and Quetiapine for panic anxiety syndrome and depression - New medication request for Auvelity - Feeding difficulties in child with potential autism and use of gastric tube Patient Instructions - Your medication will be available at the pharmacy soon. - Follow up with your psychiatrist for scheduling issues and continue to try to get an appointment for further management. - Encourage safe play activities to help with your child's sensory interactions, but avoid forcing food into the child's mouth. - Ensure the gastric tube remains properly in place for your child as recommended by your physician. - Continue monitoring your child's development and consult with a specialist for further evaluation. Medications: Refilled clonazepam 1 mg PO TID PRN 90 tabs 0RF anxiety 30 days quetiapine (Seroquel) 50 mg PO BID 60 tabs 0RF anxiety 30 days
--- OUTSIDE RECORDS SUMMARY | 2024-09-15 12:15 | XMS_ITS | Clinical Summary ---
[facility] Organization [facility] Address [address] [place] [address] Care Team Providers Care Manager Business Information Name Role Phone Unavailable Primary Care Provider [...]
--- OUTSIDE RECORDS SUMMARY | 2024-09-15 12:15 | XMS_ITS | Clinical Summary ---
Author Organization [facility] Address [address] [place] [address] Phone Care Team Providers Care Associate Professor Of Chemistry Name Role Phone Physician, Pcp Unknown Primary [...] 1700 Max Daily Amount: 95 mg Active Medical History Medical History Date Comments Seizures (CMS/HCC V24, CMS/HCC V28) Social History Tobacco Use Types Packs/Day Years [...] COVID-19 Vaccine ( season) 2024 Influenza Vaccine (Season Ended) 2025 04/10/2011, 01/23/2009 DTaP,Tdap,and Td Vaccines (7 - Td or [...] Vaccines Completed 01/23/2009, 12/10, 10/28/2007 Meningococcal B Vaccine Aged Out No l onger eligible based on patient's age to complete this topic Pneumococcal Vaccine: Pediatrics (0 to 5 Years) and At-Risk Patients (6 to 64 Years) Aged Out No longer eligible based on patient's age to complete this topic RSV Immunization Patients Under 20 months Aged Out No longer eligible based on patient's age to complete this topic Insurance [facility] MEDICARE Member Subscriber Plan / Payer (Ef fective 2020-Present) Name:Haley Garcia Relation to Subscriber:Self Name:Haley Garcia Payer ID:[id number] Group ID:[id number] Type:Not on file Address: [facility] [address] [phone] Care Teams Associate Professor Of Chemistry Relationship Specialty Start Date End Date Physician, Pcp Unknown PCP - General 06/16/24
== END 2024-09-15 12:28 | disposition home or self-care (01) ==
LOC: HO.HMCC 10:54
PROVIDERS: PCP Internal Medicine; Visit Provider Internal Medicine
DX: F41.0 Panic disorder [episodic paroxysmal anxiety] (principal); F31.77 Bipolar disorder, in partial remission, most recent episode mixed

== ENCOUNTER → 2024-09-15 10:54 | Outpatient (BNVA) | payer OTHER, SELFPAY | PROVIDERS: PCP Internal Medicine; Visit Provider Internal Medicine | DX: F41.0 Panic disorder [episodic paroxysmal anxiety] (principal); F33.2 Major depressive disorder, recurrent severe without psychotic features; F31.77 Bipolar disorder, in partial remission, most recent episode mixed | CPT/HCPCS: 96127; 99212 ==

== ENCOUNTER 2024-10-14 08:33 | Outpatient (AMB) | payer MEDICARE, MEDICAID, SELFPAY ==
--- OUTSIDE RECORDS SUMMARY | 2024-10-14 08:54 | XMS_ITS | Clinical Summary ---
Author Organization [facility] Address [address] [place] [address] Phone Care Team Providers Care Electron Beam Photo Mask Maker Name Role Phone Physician, Pcp Unknown Primary [...] patient's age to complete this topic Insurance [facility] MEDICARE Member Subscriber Plan / Payer (Ef fective 2020-Present) Name:Haley Garcia Relation to Subscriber:Self Name:Haley Garcia Payer ID:[id number] Group ID:[id number] Type:Not on file Address: [facility] [address] [phone] Care Teams Electron Beam Photo Mask Maker Relationship Specialty Start Date End Date Physician, Pcp Unknown PCP - General 06/16/24
--- NOTE | 2024-10-14 09:24 | A.OFFPC_ITS ---
Intake Visit Reasons: imagining result/general health Allergies prochlorperazine [From COMPAZINE] Allergy (Severe, Verified 09/15/24 10:59) AGITATION tramadol [TRAMADOL] Allergy (Intermediate, Verified 09/15/24 10:59) SEIZURES Compazine Allergy (Unknown, Verified 09/15/24 10:59) agitation, jittery Medication List - Last Reconciled 10/14/24 by Kalyani Benton MD cholecalciferol (vitamin D3) 25 mcg PO DAILY 90 days clonazepam 1 mg PO TID PRN 30 days dextromethorphan-bupropion 45-105 mg ER (Auvelity) tabs PO food supplemt, lactose-reduced (Ensure High Protein oral liquid) 1 ea PO BID 30 days methadone 90 mg PO QPM methadone 105 mg PO DAILY quetiapine (Seroquel) 50 mg PO BID 30 days Tobacco use date assessed: 09/15/24 Dental Screening Dental Screen Date: 09/15/24 HPI imagining result/general health HPI Details [facility] ER visit f/u dated 10/11/2024 - The patient is a 29-year-old female pr esenting with rectal prolapse. - The rectal prolapse has been occurring intermittently over the last 8 months. - The mass typically self-reduces or req uires manual reduction by the patient. - The patient has history of severe anxi ety, borderline personality disorder, chronic pelvic pain, and hemorrhoids. - A CT scan in the past revealed cervica l prominence, with the patient denying fever, abdominal pain, or leukocytosis. - An MRI of the pelvis without contrast in May 2024 showed a matured gallbladder with air within the lumen, mildly distended gallbladder and pyloric duct, mildly prominent CBD, and mild intrahepatic bile duct dilatation. The impression was possible emphysematous cholecystitis. - The patient reports nausea and difficu lties digesting food but expresses uncertainty if the pain relates to the rectal prolapse. Medical History: - Severe Anxiety - Borderline Personality Disorder - Chronic Pelvic Pain - Hemorrhoids Social History: - Reports difficulties with eating due t o nausea. Diagnostic Results: - CT scan: Cervical prominence; no fever , abdominal pain, or leukocytosis. - MRI of pelvis (May 2024): Matured liver, mildly distended gallbladder and pyloric duct, air noted within gallbladder lumen, mildly prominent common bile duct, mild intrahepatic bile duct dilatation. Impression indicated possible emphysematous cholecystitis. Problem List - Rectal Prolapse - Emphysematous Cholecystitis (possible) - Cervical Prominence - Chronic Pelvic Pain - History of Severe Anxiety - Hemorrhoids - History of Borderline Personality Diso rder Patient Instructions - Consult with a general office worker for gallbladder issues. - Discuss with Dr. Rueda regarding po tential surgical management of rectal prolapse. - Follow advice and recommendations rega rding diet to manage nausea and difficulty with food digestion. Review of Systems - General: No fever no chills - Neurological: No headaches no dizziness - Ear nose throat: No sore throat no hearing difficulty no ear pain - Cardiovascular: No syncope, no chest pain, no palpitations - Gastrointestinal: yes auseaa and sometime vomiting PFSH Medical History Tachycardia Seizures Sleep apnea Depression Fibromyalgia Suicidal ideation Methadone maintenance therapy patient Anxiety Endometriosis determined by laparoscopy Surgical History History of esophagogastroduodenoscopy (EGD) History of appendectomy History of laparoscopy Family History Father Substance use disorder Mental health disorder Mother Fibromyalgia Herniation of intervertebral disc of thoracic region Endometriosis Social History Household Members: Family and Children Household Members Other:: Mother, grandmother, and her son Housing: Apartment Are you a primary palliative care nurse practitioner to a significant other at home: No Do you presently have visiting nurse or other home services: No Alcohol intake: current Alcohol intake frequency: does not drink Patient Tobacco Use Status: Former Tobacco user Tobacco use type: Cigarette Cigarettes Per Day: 2 Years Smoked: 10 years Packs per year/per ci.00 e-Cigarette/Vaping Use: Currently Using service: No Current occupational status: unemployed and disabled Cognitive needs: No Hearing needs: No Vision needs: No Questionnaire Thrive Questionnaire Date Thrive assessed: 08/06/24 SHEFALI-7 AMB Questionnaire SHEFALI-7 Date SHEFALI - 7 assessed: 06/01/24 Source: Developed by Drs. Jared Canela, Ayesha Cat, David Pedro and colleagues, with an educational adriel from [employer] & other things you bake. Physical exam (Primary Care) Tobacco/Smoking Status: Tobacco use Status Tobacco use date assessed 09/15/24 10/14/24 09:25 Patient Tobacco Use Status Former Tobacco user 10/14/24 09:25 Tobacco use type Cigarette 10/14/24 09:25 e-Cigarette/Vaping Use Currently Using 10/14/24 09:25 Thrive Assessment: Date of Thrive Assessment Date Thrive assessed 08/06/24 10/14/24 09:25 Telehealth Telehealth Telehealth Platform: Perfect Location of provider rendering services: practice address Location of patient: address on file Patient Identification confirmed using: Name, : Yes Telehealth method: video Patient verbally consented to treatment: Yes Patient verbally consented to billing insurance company: Yes Patient informed of any privacy concerns related to visit: Yes Minutes spent on Phone/Video with Pt.: 30 Coding Level of Care Code Tele Est Pt Level 4 (63778) Diagnoses Abnormal gall bladder diagnostic imaging R93.2 Rectal prolapse K62.3 Seen in emergency room Z76.89 Assessment & Plan Assessment & Plan (1) Abnormal gall bladder diagnostic imaging: Code(s): R93.2 - Abnormal findings on diagnostic imaging of liver and biliary tract Category: Medical (2) Rectal prolapse: Code(s): K62.3 - Rectal prolapse Category: Medical (3) Seen in emergency room: Code(s): Z76.89 - Persons encountering health services in other specified circumstances Category: Medical Plan [facility] ER visit f/u dated 10/11/2024 - The patient is a 29-year-old female presenting with rectal prolapse. - The rectal prolapse has been occurring intermittently over the last 8 months. - The mass typically self-reduces or requires manual reduction by the patient. - The patient has history of severe anxiety, borderline personality disorder, chronic pelvic pain, and hemorrhoids. - A CT scan in the past revealed cervical prominence, with the patient denying fever, abdominal pain, or leukocytosis. - An MRI of the pelvis without contrast in May 2024 showed a matured gallbladder with air within the lumen, mildly distended gallbladder and pyloric duct, mildly prominent CBD, and mild intrahepatic bile duct dilatation. The impression was possible emphysematous cholecystitis. - The patient reports nausea and difficulties digesting food but expresses uncertainty if the pain relates to the rectal prolapse. Medical History: - Severe Anxiety - Borderline Personality Disorder - Chronic Pelvic Pain - Hemorrhoids Social History: - Reports difficulties with eating due to nausea. Diagnostic Results: - CT scan: Cervical prominence; no fever, abdominal pain, or leukocytosis. - MRI of pelvis (May 2024): Matured liver, mildly distended gallbladder and pyloric duct, air noted within gallbladder lumen, mildly prominent common bile duct, mild intrahepatic bile duct dilatation. Impression indicated possible emphysematous cholecystitis. Problem List - Rectal Prolapse - Emphysematous Cholecystitis (possible) - Cervical Prominence - Chronic Pelvic Pain - History of Severe Anxiety - Hemorrhoids - History of Borderline Personality Disorder Patient Instructions - Consult with a general office worker for gallbladder issues. - Discuss with Dr. Rueda regarding potential surgical management of rectal prolapse. - Follow advice and recommendations regarding diet to manage nausea and difficulty with food digestion. Orders: Referrals Gastroenterology Referral R93.2 - Abnormal findings on diagnostic imaging of liver and biliary tract Colon & Rectal Referral K62.3 - Rectal prolapse
== END 2024-10-14 09:42 | disposition home or self-care (01) ==
LOC: HO.HMCC 08:33
PROVIDERS: PCP Internal Medicine; Visit Provider Internal Medicine
DX: R93.2 Abnormal findings on diagnostic imaging of liver and biliary tract (principal); K62.3 Rectal prolapse; Z76.89 Persons encountering health services in other specified circumstances

== ENCOUNTER → 2024-10-14 08:33 | Outpatient (BNVA) | payer OTHER, SELFPAY | PROVIDERS: PCP Internal Medicine; Visit Provider Internal Medicine | DX: Z13.89 Encounter for screening for other disorder (principal) ==

== ENCOUNTER 2024-11-01 10:40 | Outpatient (AMB) | payer MEDICARE, MEDICAID, SELFPAY ==
--- NOTE | 2024-11-01 10:42 | A.OFFVIS_ITS ---
Vital Signs 11/01/24 10:47 Height 5 ft 3 in Weight 94 lb BMI 16.6 BP 132/88 Blood Pressure Location Rt brachial Position Sitting Pulse 92 Intake Visit Reasons: prolapsed rectum Intake Note: Patient here for ER follow up. Seen at [facility] [place] on 10-12-2024 for prolapse rectum. First noticed after sons over 1yr ago. Patient c/o: outer anal bulge. Patient pushes it back in. Bleeding, diarrhea. Hx chronic constipation. Previously scheduled hemorrhoidectomy but canceled due to . Supervisor [employer] Required: No Accompanied by: Self / Same As Patient Allergies prochlorperazine (From COMPAZINE) Allergy (Severe, Verified 11/01/24 10:51) AGITATION tramadol (TRAMADOL) Allergy (Intermediate, Verified 11/01/24 10:51) SEIZURES Compazine Allergy (Unknown, Verified 11/01/24 10:51) agitation, jittery Medication List - Last Reconciled 11/01/24 by Saul Rueda MD cholecalciferol (vitamin D3) 25 mcg PO DAILY 90 days clonazepam 1 mg PO TID PRN 30 days food supplemt, lactose-reduced (Ensure High Protein oral liquid) 1 ea PO BID 30 days ketorolac 10 mg PO BID methadone 90 mg PO QPM methadone 105 mg PO DAILY psyllium seed (sugar) (Metamucil (sugar) oral powder) 1 tbsp PO DAILY quetiapine (Seroquel) 50 mg PO BID 30 days HPI HPI prolapsed rectum: Details: [age] year old female referred for complaints of anal bulge. She is known to me I I had met her in 2022 for bleeding hemorrhoids. At that time, she was scheduled for hemorrhoidectomy but she had cancel this because of mononucleosis and then She does describe frequent problems with bleeding hemorrhoids. However, she is also anxious about a ?bulge? in her pelvis around the anus. She says that she would notice this before bowel movements and after. She does not describe a prolapse of her rectum. She says that the pelvic floor seems to be ? bulging?. She does admit to a long history of constipation although this has been alternating with diarrhea recently and this seemed to be aggravating her problems above. She admits to having lost almost 100 lb the past year. She says she does not have any appetite at all. She says that she not intentionally losing weight. PFSH Medical History Tachycardia Seizures Sleep apnea Depression Fibromyalgia Suicidal ideation Methadone maintenance therapy patient Anxiety Endometriosis determined by laparoscopy Surgical History History of esophagogastroduodenoscopy (EGD) History of appendectomy History of laparoscopy Family History Father Substance use disorder Mental health disorder Mother Fibromyalgia Herniation of intervertebral disc of thoracic region Endometriosis Social History Household Members: Family and Children Household Members Other:: Mother, grandmother, and her son Housing: Apartment Are you a primary life care planner to a significant other at home: No Do you presently have visiting nurse or other home services: No Alcohol intake: current Alcohol intake frequency: does not drink Patient Tobacco Use Status: Former Tobacco user Tobacco use type: Cigarette Cigarettes Per Day: 2 Years Smoked: 10 years e-Cigarette/Vaping Use: Currently Using service: No Current occupational status: unemployed and disabled Cognitive needs: No Hearing needs: No Vision needs: No Review of Systems Const Denies chills, Denies fever(s) and Reports weight loss Card Denies chest pain, Denies dyspnea and Denies dyspnea on exertion Resp Denies cough, Denies dyspnea and Denies dyspnea on exertion GI Denies hematochezia and Denies change in bowel habits Denies hematuria Musc Denies back pain and Denies limited range of motion Neuro Denies focal weakness and Denies convulsions Psych Reports anxiety, Reports depression and Denies mood swings Physical Exam Vital Signs: Last Vital Signs Pulse 92 11/01/24 10:47 BP 132/88 11/01/24 10:47 BMI result Body Mass Index 16.6 Const Other: Appears significantly underweight General: comfortable and no acute distress Orientation/consciousness: patient oriented x3 Neck Neck: Yes no lymphadenopathy Resp Auscultation: clear to auscultation bilaterally Cardio Rhythm: regular rhythm GI Other: Rectal exam does not reveal any prolapse Palpation (GI): Soft to palpation, nontender and no guarding Neuro General: patient oriented x3 Office Procedures Anoscopy She was placed in a kneeling rosario-knife position. A environmental control administrator was in the room. Examination of the anal orifice showed small external hemorrhoids. I inserted the anoscope and examined the anal canal circumferentially. She did have a permanent hemorrhoidal column a mix of internal external which seems to be on the left side. There were no lesions seen. There was no fissure or ulceration. There is no induration There was no reproducible prolapse at all. [id number]-Yorpfbty Assessment & Plan Assessment & Plan (1) Bleeding hemorrhoids: Code(s): K64.9 - Unspecified hemorrhoids Category: Medical Plan: She has a long history of bleeding hemorrhoids. However, currently she does have significant constipation as well as diarrhea. He had do not see any prolapse at all. She describes what seems to be weakness of the entire pelvic floor. I would not recommend proceeding with hemorrhoidectomy at this time as she has a lot of other ongoing issues healing GI complaints as well as severe weight loss. She says that she is not intentionally losing weight. She admits to self harm when she was young and has a lot of scars on her forearms. I will review her CAT scan from [facility] to see if there were any identifiable etiology for her significant weight loss We will see again in the office in about 3 months Medications: New psyllium seed (sugar) (Metamucil (sugar) oral powder) 1 tbsp PO DAILY 1,254 grams 0RF ketorolac maximum total duration of 5 days from all oral, intranasal, or parenteral formulations 10 mg PO BID 10 tabs 0RF pain Coding Level of Care Code Est Pt Level 3 (75274) Diagnoses Bleeding hemorrhoids K64.9 CPT Codes Details - CPT: 19181-Cyeexeif ([id number])
[2024-11-01 10:47] VITALS: BP 132/88; PULSE 92; BMI 16.6
--- OUTSIDE RECORDS SUMMARY | 2024-11-01 11:57 | XMS_ITS | Clinical Summary ---
Author Organization [facility] Address [address] [place] [address] Phone Care Team Providers Care Film Processor Name Role Phone Physician, Pcp Unknown Primary [...] 88 06/17/2024 6:28 AM EST Temperature 34.7 C (94.4 F) 06/17/2024 6:28 AM EST Respiratory Rate 16 06/17/2024 6:28 AM EST [...] patient's age to complete this topic Insurance [facility] MEDICARE Member Subscriber Plan / Payer (Ef fective 2020-Present) Name:Haley Garcia Relation to Subscriber:Self Name:Haley Garcia Payer ID:[id number] Group ID:[id number] Type:Not on file Address: [facility] [address] [phone] Care Teams Film Processor Relationship Specialty Start Date End Date Physician, Pcp Unknown PCP - General 06/16/24
== END 2024-11-01 11:32 | disposition home or self-care (01) ==
LOC: HO.HGS 10:41
PROVIDERS: PCP Internal Medicine; Visit Provider Surgery
DX: K64.9 Unspecified hemorrhoids (principal)
CPT/HCPCS: 46600; 99213

== ENCOUNTER → 2024-11-01 10:40 | Outpatient (BNVA) | payer OTHER, SELFPAY | PROVIDERS: PCP Internal Medicine; Visit Provider Surgery | DX: K64.9 Unspecified hemorrhoids (principal); K62.2 Anal prolapse; R63.4 Abnormal weight loss | CPT/HCPCS: 46600; 99212 ==

== ENCOUNTER 2024-11-09 09:28 | Outpatient (AMB) | payer OTHER, SELFPAY ==
[2024-11-09 09:32] VITALS: BP 118/68; PULSE 120; TEMP 36.7; O2SAT 97; BMI 16.6
--- NOTE | 2024-11-09 09:32 | MHC.PC.OV ---
Vital Signs 11/09/24 09:32 Height 5 ft 3 in Weight 94 lb BMI 16.6 BP 118/68 Blood Pressure Location Rt brachial Position Sitting Pulse 120 H Pulse Source Pulse Oximeter Temp 98.0 F Temp Source Temporal Artery Scan Pulse Oximetry (%) 97 Oxygen Delivery Method Room Air Intake Visit Reasons: medication refill/follow up Supervisor [employer] Required: No Is last menstrual period known: Yes (around ) Last menstrual period: 10/26/24 Post menopausal: No Patient : No Allergies prochlorperazine (From COMPAZINE) Allergy (Severe, Verified 11/09/24 09:37) AGITATION tramadol (TRAMADOL) Allergy (Intermediate, Verified 11/09/24 09:37) SEIZURES Compazine Allergy (Unknown, Verified 11/09/24 09:37) agitation, jittery Medication List - Last Reconciled 11/09/24 by Kalyani Benton MD cholecalciferol (vitamin D3) 25 mcg PO DAILY 90 days clonazepam 1 mg PO TID PRN 30 days food supplemt, lactose-reduced (Ensure High Protein oral liquid) 1 ea PO BID 30 days ketorolac 10 mg PO BID methadone 90 mg PO QPM methadone 105 mg PO DAILY psyllium seed (sugar) (Metamucil (sugar) oral powder) 1 tbsp PO DAILY quetiapine (Seroquel) 50 mg PO BID 30 days Tobacco use date assessed: 11/09/24 Dental Screening Dental Screen Date: 09/15/24 Did you have a dental visit in the last 12 months?: No Did you have a dental problem in the last 6 months where you did not have access to dental care?: No Was dental information given to patient?: Patient has dentist HPI medication refill/follow up HPI Details History - The patient is a 29-year-old female presenting with anxiety and gastrointestinal concerns. - Anxiety: The patient reports difficulty in making phone calls and scheduling appointments, leading to inconsistent medication adherence. - She is prescribed clonazepam and Seroquel but has not been taking them as prescribed due to anxiety-related procrastination. - Hemorrhoids and Rectal Prolapse: The patient has been seen by a GI doctor for hemorrhoids and was diagnosed with rectal prolapse at [facility], confirmed by a CT scan. - She seeks a referral to a colorectal surgeon affiliated with [facility] for further evaluation and management. Problem List - Anxiety - Hemorrhoids - Rectal prolapse Patient Instructions - Continue taking prescribed medications as directed. - Schedule and attend follow-up appointments with psychiatry and GI specialists. - Book a telemedicine visit for December 02. Review of Systems. - General: No fever no chills - Neurological: No headaches no dizziness - Ear nose throat: No sore throat no hearing difficulty no ear pain - Cardiovascular: No syncope, no chest pain, no palpitations - Gastrointestinal: No nausea vomiting or diarrhea - Endocrine: No polyuria polydipsia no heat intolerance - Genitourinary: No dysuria , no blood in urine Physical Exam General: No acute distress HEENT: No acute findings Neck: Supple Respiratory system: Able to talk in full sentences, no audible wheeze Cardiovascular: S1-S2 regular in rate and rhythm Gastrointestinal: History of hemorrhoids and rectal pain Extremities: No new findings 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 awake oriented x3 motor sensory intact Skin: Normal turgor PFSH Medical History Tachycardia Seizures Sleep apnea Depression Fibromyalgia Suicidal ideation Methadone maintenance therapy patient Anxiety Endometriosis determined by laparoscopy Surgical History History of esophagogastroduodenoscopy (EGD) History of appendectomy History of laparoscopy Family History Father Substance use disorder Mental health disorder Mother Fibromyalgia Herniation of intervertebral disc of thoracic region Endometriosis Social History Household Members: Family and Children Household Members Other:: Mother, grandmother, and her son Housing: Apartment Are you a primary hospice care transitions coordinator to a significant other at home: No Do you presently have visiting nurse or other home services: No Alcohol intake: current Alcohol intake frequency: does not drink Patient Tobacco Use Status: Former Tobacco user Tobacco use type: Cigarette Cigarettes Per Day: 2 Years Smoked: 10 years e-Cigarette/Vaping Use: Currently Using service: No Current occupational status: unemployed and disabled Cognitive needs: No Hearing needs: No Vision needs: No Female Reproductive History Menstrual Date of last menstrual period: 10/26/24 Questionnaire PHQ-9 Over the last 2 weeks, how often have you been bothered by any of the following problems? 1. Little interest or pleasure in doing things: nearly every day 2. Feeling down, depressed, or hopeless: nearly every day 3. Trouble falling or staying asleep, or sleeping too much: nearly every day 4. Feeling tired or having little energy: nearly every day 5. Poor appetite or overeating: nearly every day 6. Feeling bad about yourself - or that you are a failure or have let yourself or your family down: nearly every day 7. Trouble concentrating on things, such as reading the newspaper or watching television: nearly every day 8. Moving or speaking so slowly that other people could have noticed. Or the opposite - being so fidgety or restless that you have been moving around a lot more than usual: nearly every day 9. Thoughts that you would be better off or of hurting yourself in some way: several days Total score: 25 Depression Screening Interpretation: Positive Depression Screening Follow-up: Existing condition and In treatment Depression Screening Done: Yes 39156 - PHQ-9 Billing: Yes Source: Developed by Drs. Jared Canela, David Cordoba and colleagues, with an educational adriel from [employer]. Thrive Questionnaire Date Thrive assessed: 06/01/24 AUDIT C Alcohol Use Questionnaire (AUDIT-C) 1. How often do you have a drink containing alcohol?: Monthly or less 2. How many drinks containing alcohol do you have on a typical day when you are drinking?: 1 or 2 3. How often do you have six or more drinks on one occasion?: Never Total Score: 1 Score Reviewed/Action Taken: Yes SHEFALI-7 AMB Questionnaire SHEFALI-7 Date SHEFALI - 7 assessed: 06/01/24 Source: Developed by Drs. Jared Canela, David Cordoba and colleagues, with an educational adriel from [employer]. Physical exam (Primary Care) Vital Signs: Last Vital Signs Temp 98.0 F 11/09/24 09:32 Pulse 120 H 11/09/24 09:32 BP 118/68 11/09/24 09:32 Pulse Ox 97 11/09/24 09:32 Oxygen Delivery Method Room Air 11/09/24 09:32 BMI result Body Mass Index 16.6 Tobacco/Smoking Status: Tobacco use Status Tobacco use date assessed 11/09/24 11/09/24 09:39 Patient Tobacco Use Status Former Tobacco user 11/09/24 09:39 Tobacco use type Cigarette 11/09/24 09:39 e-Cigarette/Vaping Use Currently Using 11/09/24 09:39 PHQ-9: PHQ-9 Score PHQ-9: Total score 11/09/24 09:50 Depression Screening Interpretation: Positive Depression Screening Follow-up: Existing condition and In treatment Thrive Assessment: Date of Thrive Assessment Date Thrive assessed 06/01/24 11/09/24 09:39 Coding Level of Care Code Est Pt Level 4 (11867) Complex EM visit Add On G2211 Diagnoses Rectal pain K62.89 Panic anxiety syndrome F41.0 Severe episode of recurrent major depressive disorder, without psychotic features F33.2 Psychotic features: without psychotic features Bipolar disorder, in partial remission, most recent episode mixed F31.77 Active/Remission status: in partial remission Most recent bipolar episode type: mixed Additional Codes PHQ-9 - 22511 - PHQ-9 Billing: Yes ([id number]) Assessment & Plan Assessment & Plan (1) Rectal pain: Code(s): K62.89 - Other specified diseases of anus and rectum Category: Medical (2) Panic anxiety syndrome: Code(s): F41.0 - Panic disorder [episodic paroxysmal anxiety] Category: Medical (3) Recurrent major depression-severe: Code(s): F33.2 - Major depressive disorder, recurrent severe without psychotic features Category: Medical Qualifiers: Psychotic features: without psychotic features Qualified Code(s): F33.2 - Major depressive disorder, recurrent severe without psychotic features (4) Bipolar disorder: Code(s): F31.9 - Bipolar disorder, unspecified Category: Medical Qualifiers: Active/Remission status: in partial remission Most recent bipolar episode type: mixed Qualified Code(s): F31.77 - Bipolar disorder, in partial remission, most recent episode mixed Plan History - The patient is a 29-year-old female presenting with anxiety and gastrointestinal concerns. - Anxiety: The patient reports difficulty in making phone calls and scheduling appointments, leading to inconsistent medication adherence. - She is prescribed clonazepam and Seroquel but has not been taking them as prescribed due to anxiety-related procrastination. - Hemorrhoids and Rectal Prolapse: The patient has been seen by a GI doctor for hemorrhoids and was diagnosed with rectal prolapse at [facility], confirmed by a CT scan. - She seeks a referral to a colorectal surgeon affiliated with [facility] for further evaluation and management. Problem List - Anxiety - Hemorrhoids - Rectal prolapse Patient Instructions - Continue taking prescribed medications as directed. - Schedule and attend follow-up appointments with psychiatry and GI specialists. - Book a telemedicine visit for December 02. Orders: Referrals Colon & Rectal Referral K62.89 - Other specified diseases of anus and rectum Medications: Refilled quetiapine (Seroquel) 50 mg PO BID 60 tabs 0RF anxiety 30 days clonazepam 1 mg PO TID PRN 90 tabs 0RF anxiety 30 days
--- OUTSIDE RECORDS SUMMARY | 2024-11-09 10:07 | XMS_ITS | Clinical Summary ---
Author Organization [facility] Address [address] [place] [address] Care Team Providers Care Refrigerator Mover Name Role Phone Unavailable Primary Care Provider [...]
--- OUTSIDE RECORDS SUMMARY | 2024-11-09 10:07 | XMS_ITS | Clinical Summary ---
Author Organization [facility] Address [address] [place] [address] Phone Care Team Providers Care Stable Helper Name Role Phone Physician, Pcp Unknown Primary [...] patient's age to complete this topic Insurance [facility] MEDICARE Member Subscriber Plan / Payer (Ef fective 2020-Present) Name:Haley Garcia Relation to Subscriber:Self Name:Haely Garcia Payer ID:[id number] Group ID:[id number] Type:Not on file Address: [facility] [address] [id number] Care Teams Stable Helper Relationship Specialty Start Date End Date Physician, Pcp Unknown PCP - General 06/16/24
== END 2024-11-09 09:50 | disposition home or self-care (01) ==
LOC: HO.HMCC 09:28
PROVIDERS: PCP Internal Medicine; Visit Provider Internal Medicine
DX: K62.89 Other specified diseases of anus and rectum (principal); F41.0 Panic disorder [episodic paroxysmal anxiety]; F31.77 Bipolar disorder, in partial remission, most recent episode mixed

== ENCOUNTER → 2024-11-09 09:28 | Outpatient (BNVA) | payer OTHER, SELFPAY | PROVIDERS: PCP Internal Medicine; Visit Provider Internal Medicine | DX: F31.77 Bipolar disorder, in partial remission, most recent episode mixed (principal); F41.9 Anxiety disorder, unspecified; K62.3 Rectal prolapse; K64.9 Unspecified hemorrhoids; K62.89 Other specified diseases of anus and rectum; F41.0 Panic disorder [episodic paroxysmal anxiety] | CPT/HCPCS: 96127; 99212 ==

== ENCOUNTER 2024-11-18 08:22 | Outpatient (AMB) | payer OTHER, SELFPAY ==
--- OUTSIDE RECORDS SUMMARY | 2024-11-12 23:59 | XMS_ITS | Continuity of Care Document ---
Author Organization [facility] Address [address] [place] [id number]- Support Name Relationship Address Phone KAREN, LUIS [...] Unknown Un available Care Team Providers Care Planning Rn Name Role Phone Chetan TREVIZO, Asma Primary Care Physician Encounter [facility] [place](s): 10/13/24 - 11/12/24 [facility] [address] [address] Encounter Type: Triage Allergies, Adverse [...] 07/23/07 GIVEN 8Admin Note: boostrix--state 9Admin Note: [facility] Medications clonazePAM 1 mg oral tablet 1 tablet = 1 mg, By Mouth, 3 times a day, # 90 tablet, 1 Refills, Maintenance, 08/19/23 8:43:00 AM EDT, Tablet, [facility], Partial fill upon patient request if [...] Refills, Maintenance, 02/19/24 5:20:00 PM EDT, Tablet, [id number], Partial fill upon patient request if the prescription is for a schedule II opioid drug., 163, cm, 10/16/23 14:26:00 EDT, Height, 62.5, kg, 10/03/23 7:24:00 EDT, Dry Weight Start Date: 02/19/24 Status: Ordered Quantity: 90.0 Unit: tablet Repeat number: 1 docusate sodium 100 mg oral capsule 1 capsule = 100 mg, By Mouth, Daily, PRN as needed for constipation, # 60 capsule, 0 Refills, Maintenance, 10/12/24 10:14:00 PM EDT, Capsule, [facility] #[id number], Partial fill upon patient request if the prescription is for a schedule II opioid drug., 162, cm, 10/12/24 18:54:00 EDT, Height, 44.3, kg, 10/12/24 18:54:00 EDT, Dry Weight Start Date: 10/12/24 Status: Ordered Quantity: 60.0 Unit: capsule Repeat number: 1 Liletta 52 mg intrauterine device 1 each = 52 mg, Once, 0 Refills, Maintenance, 06/22/24 8:38:00 AM EST, Partial fill upon patient request if the prescription is for a schedule II opioid drug. Start Date: 06/22/24 Status: Ordered Repeat number: 1 Metamucil 3.4 gm/5.2 gm oral powder for reconstitution = 1.7 Gm, By Mouth, 3 times a day, PRN as needed for constipation, # 283 Gm, 0 Refills, Acute 10/13/25 10:15:00 PM EDT, 10/12/24 10:15:00 PM EDT, REC Powder, [facility] #[id number], Partial fill upon patient request if the prescription is for a schedule II opioid drug., 162, cm, 10/12/24 18:54:00 EDT, Height, 44.3, kg, 10/12/24 18:54:00 EDT, Dry Weight Start Date: 10/12/24 Stop Date: 10/13/25 Status: Ordered Quantity: 283.0 Unit: g Repeat number: 1 Methadone 200, By Mouth, takes 200mg liquid daily, 0 Refills, Maintenance, 01/09/21 8:27:00 AM EDT, Partial fill upon patient request if the prescription is for a schedule II opioid drug. Start Date: 01/09/21 Status: Ordered Repeat number: 1 MiraLax oral powder for reconstitution = 17 Gm, By Mouth, Daily, # 238 Gm, 0 Refills, Acute 10/13/25 10:15:00 PM EDT, 10/12/24 10:14:00 PM EDT, REC Powder, [facility] #[id number], Partial fill upon patient request if the prescription is for a schedule II opioid drug., 17 Gm By Mouth Daily, 162, cm, 10/12/24 18:54:00 EDT, Height, 44.3, kg, 10/12/24 18:54:00 EDT, Dry Weight Start Date: 10/12/24 Stop Date: 10/13/25 Status: Ordered Quantity: 238.0 Unit: g Repeat number: 1 ondansetron 4 mg oral tablet, disintegrating 1 tablet = 4 mg, By Mouth, Every 8 hours, PRN as needed for nausea/vomiting, # 30 tablet, 1 Refills, Maintenance, 08/28/23 6:22:00 AM EDT, DIS Tablet, [facility][id number], Partial fill upon patient request if the [...] Maintenance, 09/18/23 4:26:00 PM EDT, ER Tablet, [facility] #[id number], Partial fill upon patient request if the [...] Sleep disorder Confirmed Active Smoker Confirmed Active Underweight Confirmed Active Social History Social History Type [...] Safety Implantable Status Assigning Authority Unknown Unknown [id number] Unknown 07/10/24 Unknown Unknown Active Unknown Patient Care team information Care Team Personnel Name: Kash TREVIZO, Ramana Nation Position: [facility] Physician - Pediatrics Member Role: Lifetime Consulting Physician Address: [address] [place] [address] [place] [address] [employer] [employer]: Name: Chetan TREVIZO, Kalyani Position: Reference Physician Member Role: PCP Address: [address] [place] [address]- [place] Tele[employer]: Name: Sage PETTIT, Toshia Position: [facility] OB RN Member Role: Primary Care Nurse Name: Vance TREVIZO, Myles Position: [facility] Physician - Behavioral Health Member Role: Lifetime Consulting Physician Address: [address] [facility] [place] [address]- [place] [employer]: Care Team Related Persons Name: LO HOOK Name: LUIS FELIPE JONES Name: KATALINA CASTELLANO Insurance Providers Guarantor name: NAVJOT HOOK Health Plan Information #: 1 Payer: [facility] Payer Identifier: NA Member Number: [id number] Group Number: [id number] Subscriber Identifier: [id number] Relationship to Subscriber: self Coverage Type: Medicare Managed Care (Includes Medicare Advantage Plans) Coverage Verification Date: NA Telecom: NA Address: NA
--- OUTSIDE RECORDS SUMMARY | 2024-11-18 08:32 | XMS_ITS | Clinical Summary ---
Author Organization [facility] Address [address] [place] [address] Phone Care Team Providers Care Crushing Machine Operator Name Role Phone Physician, Pcp Unknown Primary [...] Vaccine ( season) 2024 Influenza Vaccine (#1) 2025 04/10/2011, 2008 DTaP,Tdap,and Td Vaccines (7 - [...] 5 Years) and At-Risk Patients (6 to 49 Years) Aged Out No longer eligible based on patient's age to complete this topic RSV Immunization Patients Under 20 months Aged Out No longer eligible based on patient's age to complete this topic Insurance [facility] MEDICARE Member Subscriber Plan / Payer (Ef fective 2020-Present) Name:Haley Garcia Relation to Subscriber:Self Name:Haley Garcia Payer ID:[id number] Group ID:[id number] Type:Not on file [facility] [address] [id number] Care Teams Crushing Machine Operator Relationship Specialty Start Date End Date Physician, Pcp Unknown PCP - General 06/16/24
--- OUTSIDE RECORDS SUMMARY | 2024-11-18 08:32 | XMS_ITS | Clinical Summary ---
Author Organization [facility] Address [address] [place] [address] Care Team Providers Care Power Shovel Operator Name Role Phone Unavailable Primary Care Provider [...]
--- NOTE | 2024-11-18 09:12 | A.OFFPC_ITS ---
Intake Visit Reasons: medication Allergies prochlorperazine (From COMPAZINE) Allergy (Severe, Verified 11/09/24 09:37) AGITATION tramadol (TRAMADOL) Allergy (Intermediate, Verified 11/09/24 09:37) SEIZURES Compazine Allergy (Unknown, Verified 11/09/24 09:37) agitation, jittery Medication List - Last Reconciled 11/18/24 by Kalyani Benton MD cholecalciferol (vitamin D3) 25 mcg PO DAILY 90 days clonazepam 1 mg PO TID PRN 30 days food supplemt, lactose-reduced (Ensure High Protein oral liquid) 1 ea PO BID 30 days ketorolac 10 mg PO BID methadone 90 mg PO QPM methadone 105 mg PO DAILY psyllium seed (sugar) (Metamucil (sugar) oral powder) 1 tbsp PO DAILY quetiapine (Seroquel) 50 mg PO BID 30 days Tobacco use date assessed: 11/09/24 Dental Screening Dental Screen Date: 09/15/24 HPI medication HPI Details History - The patient is a 29-year-old female pr esenting with severe abdominal pain and suspected bowel obstruction. - The patient reports experiencing sever e abdominal pain to the extent of being doubled over in pain, primarily when attempting to eat. - The pain is described as intense press ure concentrated in the upper left quadrant of the abdomen, below the ribs, accompanied by sharp pain. - Additionally, the patient notes extrem e pressure around the umbilical area, described as feeling like excessive air pressure, leading to nausea. - The patient states that any food intak e, even minimal, exacerbates the symptoms, with the example given of watermelon ingestion causing these sensations. - Initially, the patient experienced nakia rrhea which has now progressed to constipation with no bowel movement for two days. - Patient expresses concern about a pote ntial bowel obstruction citing similar past experiences but rules out complete obstruction due to recent gas passing. - The course and treatment: The patient has previously experienced fluctuations between constipation and diarrhea but primarily deals with constipation. - This recent change has included diarrh ea a few months ago, now turning into persistent constipation with current symptoms worsened over the last few days. Medical History: - History of irritable bowel syndrome, w ith alternating pattern of diarrhea and constipation. - Previous history of bowel obstruction. Medications: - Metamucil: for management of constipat ion. - MiraLAX: for management of constipatio n. - Colace: for management of constipation . Social History: - The patient is cautious about food int malinda due to exacerbation of symptoms and currently attempts to consume minimal foods such as watermelon to manage intake and symptoms. Diagnostic Results: - Previous mention of air presence in th e gallbladder indicating potential issues. Problem List - Severe abdominal pain - Constipation - History of irritable bowel syndrome Patient Instructions - Take prescribed medication pantoprazol e daily. - Use Colace to alleviate constipation. - Adhere to a liquid diet consisting of Jello, chicken broth, yogurt, banana, or baby food to allow the stomach to calm down before reintroducing solids. - Schedule an ultrasound of the abdomen as directed. - Visit the emergency room if symptoms w rao Review of Systems - General: No fever no chills - Neurological: No headaches no dizziness - Ear nose throat: No sore throat no hearing difficulty no ear pain - Cardiovascular: No syncope, no chest pain, no palpitations - Endocrine: No polyuria polydipsia no heat intolerance - Genitourinary: No dysuria , no blood in urine PFSH Medical History Tachycardia Seizures Sleep apnea Depression Fibromyalgia Suicidal ideation Methadone maintenance therapy patient Anxiety Endometriosis determined by laparoscopy Surgical History History of esophagogastroduodenoscopy (EGD) History of appendectomy History of laparoscopy Family History Father Substance use disorder Mental health disorder Mother Fibromyalgia Herniation of intervertebral disc of thoracic region Endometriosis Social History Household Members: Family and Children Household Members Other:: Mother, grandmother, and her son Housing: Apartment Are you a primary resident care director to a significant other at home: No Do you presently have visiting nurse or other home services: No Alcohol intake: current Alcohol intake frequency: does not drink Patient Tobacco Use Status: Former Tobacco user Tobacco use type: Cigarette Cigarettes Per Day: 2 Years Smoked: 10 years e-Cigarette/Vaping Use: Currently Using service: No Current occupational status: unemployed and disabled Cognitive needs: No Hearing needs: No Vision needs: No Questionnaire Thrive Questionnaire Date Thrive assessed: 06/01/24 SHEFALI-7 AMB Questionnaire SHEFALI-7 Date SHEFALI - 7 assessed: 06/01/24 Source: Developed by Drs. Jared Canela, Ayesha Cat, David Pedro and colleagues, with an educational adriel from [employer]. Physical exam (Primary Care) Tobacco/Smoking Status: Tobacco use Status Tobacco use date assessed 11/09/24 11/18/24 09:12 Patient Tobacco Use Status Former Tobacco user 11/18/24 09:12 Tobacco use type Cigarette 11/18/24 09:12 e-Cigarette/Vaping Use Currently Using 11/18/24 09:12 Thrive Assessment: Date of Thrive Assessment Date Thrive assessed 06/01/24 11/18/24 09:12 Telehealth Telehealth Telehealth Platform: BeSmart Location of provider rendering services: practice address Location of patient: address on file Patient Identification confirmed using: Name, : Yes Telehealth method: video Patient verbally consented to treatment: Yes Patient verbally consented to billing insurance company: Yes Patient informed of any privacy concerns related to visit: Yes Minutes spent on Phone/Video with Pt.: 30 Coding Level of Care Code Tele Est Pt Level 4 (66446) Diagnoses Generalized abdominal pain R10.84 Abdominal location: generalized Abnormal gall bladder diagnostic imaging R93.2 Constipation by delayed colonic transit K59.01 Abdominal bloating R14.0 Time Spent (min) 30 Comment reviewing chart / labs / imaging/ face to face, coordination Assessment & Plan Assessment & Plan (1) Abdominal pain: Code(s): R10.9 - Unspecified abdominal pain Category: Medical Qualifiers: Abdominal location: generalized Qualified Code(s): R10.84 - Generalized abdominal pain (2) Abnormal gall bladder diagnostic imaging: Code(s): R93.2 - Abnormal findings on diagnostic imaging of liver and biliary tract Category: Medical (3) Constipation by delayed colonic transit: Code(s): K59.01 - Slow transit constipation Category: Medical (4) Abdominal bloating: Code(s): R14.0 - Abdominal distension (gaseous) Category: Medical Plan History - The patient is a 29-year-old female presenting with severe abdominal pain and suspected bowel obstruction. - The patient reports experiencing severe abdominal pain to the extent of being doubled over in pain, primarily when attempting to eat. - The pain is described as intense pressure concentrated in the upper left quadrant of the abdomen, below the ribs, accompanied by sharp pain. - Additionally, the patient notes extreme pressure around the umbilical area, described as feeling like excessive air pressure, leading to nausea. - The patient states that any food intake, even minimal, exacerbates the symptoms, with the example given of watermelon ingestion causing these sensations. - Initially, the patient experienced diarrhea which has now progressed to constipation with no bowel movement for two days. - Patient expresses concern about a potential bowel obstruction citing similar past experiences but rules out complete obstruction due to recent gas passing. - The course and treatment: The patient has previously experienced fluctuations between constipation and diarrhea but primarily deals with constipation. - This recent change has included diarrhea a few months ago, now turning into persistent constipation with current symptoms worsened over the last few days. Medical History: - History of irritable bowel syndrome, with alternating pattern of diarrhea and constipation. - Previous history of bowel obstruction. Medications: - Metamucil: for management of constipation. - MiraLAX: for management of constipation. - Colace: for management of constipation. Social History: - The patient is cautious about food intake due to exacerbation of symptoms and currently attempts to consume minimal foods such as watermelon to manage intake and symptoms. Diagnostic Results: - Previous mention of air presence in the gallbladder indicating potential issues. Problem List - Severe abdominal pain - Constipation - History of irritable bowel syndrome Patient Instructions - Take prescribed medication pantoprazole daily. - Use Colace to alleviate constipation. - Adhere to a liquid diet consisting of Jello, chicken broth, yogurt, banana, or baby food to allow the stomach to calm down before reintroducing solids. - Schedule an ultrasound of the abdomen as directed. - Visit the emergency room if symptoms worsen Orders: Orders US abdomen complete Today R10.9 - Unspecified abdominal pain Referrals Gastroenterology Referral R10.9 - Unspecified abdominal pain, R93.2 - Abnormal findings on diagnostic imaging of liver and biliary tract Medications: New pantoprazole 40 mg PO DAILY 30 tabs 0RF
== END 2024-11-18 09:18 | disposition home or self-care (01) ==
LOC: HO.HMCC 08:22
PROVIDERS: PCP Internal Medicine; Visit Provider Internal Medicine
DX: R10.84 Generalized abdominal pain (principal); R93.2 Abnormal findings on diagnostic imaging of liver and biliary tract; K59.01 Slow transit constipation; R14.0 Abdominal distension (gaseous)

== ENCOUNTER 2024-11-22 07:44 | Outpatient (REF) | payer OTHER, SELFPAY ==
--- NOTE | ~2024-11-22 | US_ITS ---
EXAMINATION: US ABDOMEN COMPLETE CLINICAL INFORMATION: Abdominal pain. COMPARISON: Correlated to CT abdomen pelvis dated August 29, 2019. TECHNIQUE: Real-time ultrasound of the abdomen using grayscale and color Doppler technique. FINDINGS: PANCREAS: No peripancreatic fluid collections. ABDOMINAL AORTA: The proximal, mid, and distal segments are normal in caliber. INFERIOR VENA CAVA: Visualized portions are normal. LIVER: Liver measures 16 cm per technologist. Normal echotexture. No nodular surface. No solid or cystic lesion detected by the technologist. No intrahepatic biliary ductal dilatation . GALLBLADDER: Gallbladder is contracted. No pericholecystic fluid collection or gallbladder wall thickening. COMMON BILE DUCT: 5 mm. RIGHT KIDNEY: 10 cm. Normal echotexture. Normal renal cortical thickness. No hydronephrosis. No gross solid or cystic lesion detected. . LEFT KIDNEY: 10 cm. Normal echotexture. Normal renal cortical thickness. No hydronephrosis. No gross solid or cystic lesion. . SPLEEN: 9 cm. No focal lesion.. FREE FLUID: None. US/US abdomen complete IMPRESSION: Hepatomegaly, mild. Gallbladder is contracted without gross cholelithiasis. No hydronephrosis. No ascites. Electronically signed by: Kiko Stark MD 11/22/2024 08:15 AM EDT
--- OUTSIDE RECORDS SUMMARY | 2024-11-22 07:46 | XMS_ITS | Clinical Summary ---
Author Organization [facility] Address [address] [place] [address] Phone Care Team Providers Care Thread Grinder Name Role Phone Physician, Pcp Unknown Primary [...] patient's age to complete this topic Insurance [facility] MEDICARE Member Subscriber Plan / Payer (Ef fective 2020-Present) Name:Haley Garcia Relation to Subscriber:Self Name:Haley Garcia Payer ID:[id number] Group ID:[id number] Type:Not on file Address: [facility] [address] [phone] Care Teams Thread Grinder Relationship Specialty Start Date End Date Physician, Pcp Unknown PCP - General 06/16/24
--- OUTSIDE RECORDS SUMMARY | 2024-11-22 07:46 | XMS_ITS | Clinical Summary ---
Author Organization [facility] Address [address] [place] [address] Care Team Providers Care Molder Name Role Phone Unavailable Primary Care Provider [...]
== END 2024-11-22 07:45 | disposition home or self-care (01) ==
LOC: HO.US 07:44
PROVIDERS: PCP Internal Medicine; Visit Provider Internal Medicine
DX: R10.9 Unspecified abdominal pain (principal)
CPT/HCPCS: 76700

== ENCOUNTER → 2024-11-22 07:45 | Outpatient (BNV) | payer OTHER, SELFPAY | PROVIDERS: PCP Internal Medicine; Visit Provider Radiology Diagnostic Radiology | DX: R10.12 Left upper quadrant pain (principal) | CPT/HCPCS: 76700 ==

== ENCOUNTER 2024-12-09 09:40 | Outpatient (AMB) | payer OTHER, SELFPAY ==
--- NOTE | 2024-12-09 09:43 | MHC.OFFVIS ---
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/[place] Allergies prochlorperazine (From COMPAZINE) Allergy (Severe, Verified 11/09/24 09:37) AGITATION tramadol (TRAMADOL) Allergy (Intermediate, Verified 11/09/24 09:37) SEIZURES Compazine Allergy (Unknown, Verified 11/09/24 09:37) agitation, jittery Medication List - Last Reconciled 12/09/24 by Issa Lobato MD clonazepam 1 mg PO TID PRN 30 days food supplemt, lactose-reduced (Ensure High Protein oral liquid) 1 ea PO BID 30 days methadone 100 mg PO DAILY methadone 85 mg PO QPM psyllium seed (sugar) (Metamucil (sugar) oral powder) 1 tbsp PO DAILY quetiapine (Seroquel) 50 mg PO BID 30 days HPI Comments Details: Haley is here for cardiac consultation. She reports experiencing dizziness, palpitations, and nausea, which have increased since the of her son in August 2023. The patient has also been dealing with gastrointestinal issues, including nausea and food aversions, leading to significant weight loss from 130 pounds to 90 pounds. She experiences episodes of heart racing at different times. She also experiences episodes of dizziness and visual disturbances upon standing, which are exacerbated by physical activity such as bending over. Her blood pressure readings have been inconsistent, with reports of both low and high blood pressure, contributing to her symptoms. The patient has been on methadone for eight years due to previous opiate use. She is currently attempting to reduce her methadone dosage, with a recent decrease in her evening dose. The patient has been advised to increase her salt intake to help manage her symptoms, although she already uses a significant amount of salt in her diet. [facility] Medical History Tachycardia Seizures Sleep apnea Depression Fibromyalgia Suicidal ideation Methadone maintenance therapy patient Anxiety Endometriosis determined by laparoscopy Surgical History History of esophagogastroduodenoscopy (EGD) History of appendectomy History of laparoscopy Family History Father Substance use disorder Mental health disorder Mother Fibromyalgia Herniation of intervertebral disc of thoracic region Endometriosis Social History Household Members: Family and Children Household Members Other:: Mother, grandmother, and her son Housing: Apartment Are you a primary nanny caregiver to a significant other at home: No Do you presently have visiting nurse or other home services: No Alcohol intake: current Alcohol intake frequency: does not drink Patient Tobacco Use Status: Former Tobacco user Tobacco use type: Cigarette Cigarettes Per Day: 2 Years Smoked: 10 years e-Cigarette/Vaping Use: Currently Using service: No Current occupational status: unemployed and disabled Cognitive needs: No Hearing needs: No Vision needs: No Review of Systems Const Denies weakness ENT Reports dizziness Card Denies chest pain, Denies chest pain with activity, Reports syncope, Denies rapid heart rate, Denies pedal edema, Denies edema, Denies leg edema, Denies lightheadedness, Reports palpitations, Reports dyspnea, Denies dyspnea on exertion and Denies orthopnea Resp Denies cough, Reports dyspnea and Denies dyspnea on exertion GI Denies hematochezia and Denies change in stool character Musc Denies abnormal gait, Denies muscle cramps, Denies muscle weakness, Denies numbness, Denies radiating pain into limb and Denies tingling Neuro Denies abnormal gait, Reports dizziness, Reports syncope, Denies numbness, Denies tingling and Denies weakness Endo Reports palpitations Physical Exam Vital Signs: Last Vital Signs Pulse 78 12/09/24 09:44 BP 108/60 12/09/24 09:44 BMI result Body Mass Index 16.0 Const General: comfortable and no acute distress Orientation/consciousness: patient oriented x3 HEENT Other: Unremarkable Head: Yes normal to inspection Neck Neck: Yes normal visual inspection Chest Chest palpation & inspection: normal inspection of the chest Resp Auscultation: clear to auscultation bilaterally Cardio Palpation: normal PMI Heart sounds: S1 normal heart sound present, S2 normal heart sound present, no gallops, no murmurs and no rubs GI Palpation (GI): Soft to palpation Back/Spine/Pelvis Other: unremarkable Skin General skin exam: no rashes or lesions noted Neuro General: patient oriented x3 Extrem General: Yes normal to inspection Psych Mental Status: mental status grossly normal Office Procedures EKG Details: EKG with underlying sinus rhythm at 78/Min; nonspecific ST-T changes; corrected QT prolonged at 513 milliseconds. [id number], Complete Assessment & Plan Assessment & Plan (1) Palpitations: Code(s): R00.2 - Palpitations Category: Medical (2) Dizziness: Code(s): R42 - Dizziness and giddiness Category: Medical (3) Prolonged QT interval: Code(s): R94.31 - Abnormal electrocardiogram [ECG] [EKG] Category: Medical Plan The plan includes ordering a Holter monitor and an echocardiogram to further evaluate the patient's cardiac status. There is a need to obtain previous EKG records from the methadone clinic to assess any changes over time, especially concerning the QT interval. Will also need to obtain any previous magnesium levels. The patient is advised to continue her current methadone regimen with a focus on gradually reducing the dosage, to mitigate potential cardiac risks. Nutritional support is recommended to address her significant weight loss, including the use of nutritional supplements to increase caloric intake. The patient is encouraged to maintain a labetalol salt diet to manage her symptoms of dizziness and low blood pressure, although she already consumes a considerable amount of salt. Discussion Notes I discussed with the patient the importance of monitoring her cardiac status due to her symptoms of tachycardia and dizziness. We talked about the need for a Holter monitor and echocardiogram to provide further insights into her condition. I emphasized the importance of obtaining previous EKG records from the methadone clinic to track any changes over time. We also discussed her methadone regimen, focusing on the gradual reduction of dose to minimize cardiac risks. Nutritional support was recommended to help with her weight loss and to increase her caloric intake. I advised her to maintain a liberal salt diet to help manage her symptoms of dizziness and low blood pressure. Patient was informed and verbally consented to the use of an ambient scribe for clinic note documentation during this visit. Orders: Orders ECG 3 day holter monitor Today R00.2 - Palpitations CA echo transthoracic complete Today R00.2 - Palpitations Patient Instructions: - Work on gradually reducing the methadone dose. - Use nutritional supplements to help increase caloric intake and gain weight. - Maintain a liberal salt diet to manage dizziness and low blood pressure symptoms. - Follow up with Holter monitor and echocardiogram. - Obtain previous EKG records from the methadone clinic for review. Coding Level of Care Code New Pt Level 4 (44682) Complex EM visit Add On G2211 Diagnoses Palpitations R00.2 Dizziness R42 Prolonged QT interval R94.31 CPT Codes EKG - CPT: [id number], Complete ([id number])
[2024-12-09 09:44] VITALS: BP 108/60; PULSE 78; BMI 16.0
--- OUTSIDE RECORDS SUMMARY | 2024-12-09 10:08 | XMS_ITS | Clinical Summary ---
Author Organization [facility] Address [address] [place] [address] Phone Care Team Providers Care Finger Grip Machine Operator Name Role Phone Physician, Pcp [...] 09/29/2014 Cervical Cancer Screening: Pap Smear 09/29/2016 HIV Screening 04/09/2022 Hepatitis C Screening 04/09/2022 Medicare Annual Wellness Visit 04/09/2022 Social Influencers of Health Screening 04/09/2022 COVID-19 Vaccine ( season) 2024 Depression Screening 05/12/2024 Influenza Vaccine (#1) 2025 04/10/2011, 2008 DTaP,Tdap,and [...] patient's age to complete this topic Insurance [facility] [place] MEDICARE Member Subscriber Plan / Payer (Ef fective 2020-Present) Name:Haley Garcia Relation to Subscriber:Self Name:Haley Garcia Payer ID:[id number] Group ID:[id number] Type:Not on file Address: [facility] [address] [phone] Care Teams Finger Grip Machine Operator Relationship Specialty Start Date End Date Physician, Pcp Unknown PCP - General 06/16/24
--- OUTSIDE RECORDS SUMMARY | 2024-12-09 10:08 | XMS_ITS | Clinical Summary ---
Author Organization [facility] Address [address] [place] [address] Care Team Providers Care Civil Engineering Professional Name Role Phone Unavailable Primary Care Provider [...]
== END 2024-12-09 10:26 | disposition home or self-care (01) ==
LOC: HO.HCS 09:41
PROVIDERS: PCP Internal Medicine; Visit Provider Internal Medicine
DX: R00.2 Palpitations (principal); R42 Dizziness and giddiness; R94.31 Abnormal electrocardiogram [ECG] [EKG]
CPT/HCPCS: 93010; 99204; G2211

== ENCOUNTER → 2024-12-09 09:40 | Outpatient (BNVA) | payer OTHER, SELFPAY | PROVIDERS: PCP Internal Medicine; Visit Provider Internal Medicine | DX: R00.2 Palpitations (principal); R42 Dizziness and giddiness; R94.31 Abnormal electrocardiogram [ECG] [EKG]; Z79.899 Other long term (current) drug therapy | CPT/HCPCS: 93005; 99202 ==

== ENCOUNTER 2024-12-15 11:57 | Outpatient (REF) | payer OTHER, SELFPAY ==
--- OUTSIDE RECORDS SUMMARY | 2024-12-15 12:41 | XMS_ITS | Clinical Summary ---
Author Organization [facility] Address [address] [place] [address] Care Team Providers Care Land Law Examiner Name Role Phone Unavailable Primary Care Provider [...]
--- OUTSIDE RECORDS SUMMARY | 2024-12-15 12:41 | XMS_ITS | Clinical Summary ---
Author Organization [facility] Address [address] [place] [address] Phone Care Team Providers Care Assistant Store Leader Name Role Phone Physician, Pcp Unknown Primary [...] patient's age to complete this topic Insurance [facility] MEDICARE Member Subscriber Plan / Payer (Ef fective 2020-Present) Name:Haley Garcia Relation to Subscriber:Self Name:Haley Garcia Payer ID:[id number] Group ID:[id number] Type:Not on file Address: [facility] [address] [id number] Care Teams Assistant Store Leader Relationship Specialty Start Date End Date Physician, Pcp Unknown PCP - General 06/16/24
[2024-12-15 13:59] LABS: Magnesium 1.8 mg/dL (1.6-2.6)
== END 2024-12-15 11:58 | disposition home or self-care (01) ==
LOC: HO.LAB 11:57
PROVIDERS: Visit Provider Internal Medicine
DX: E83.42 Hypomagnesemia (principal)
CPT/HCPCS: 36415; 83735

== ENCOUNTER 2024-12-16 08:44 | Outpatient (AMB) | payer OTHER, SELFPAY ==
--- OUTSIDE RECORDS SUMMARY | 2024-12-16 09:02 | XMS_ITS | Clinical Summary ---
Author Organization [facility] Address [address] [place] [address] Phone Care Team Providers Care Meat Processor Name Role Phone Physician, Pcp Unknown [...] patient's age to complete this topic Insurance [facility] MEDICARE Member Subscriber Plan / Payer (Ef fective 2020-Present) Name:Haley Garcia Relation to Subscriber:Self Name:Haley Garcia Payer ID:[id number] Group ID:[id number] Type:Not on file Address: [facility] [address] [phone] Care Teams Meat Processor Relationship Specialty Start Date End Date Physician, Pcp Unknown PCP - General 06/16/24
--- OUTSIDE RECORDS SUMMARY | 2024-12-16 09:02 | XMS_ITS | Clinical Summary ---
Author Organization [facility] Address [address] [place] [address] Care Team Providers Care Content Creation Manager Name Role Phone Unavailable Primary Care Provider [...]
--- NOTE | 2024-12-16 09:54 | A.OFFPC_ITS ---
Intake Visit Reasons: F/U Meds reschedule Allergies prochlorperazine (From COMPAZINE) Allergy (Severe, Verified 11/09/24 09:37) AGITATION tramadol (TRAMADOL) Allergy (Intermediate, Verified 11/09/24 09:37) SEIZURES Compazine Allergy (Unknown, Verified 11/09/24 09:37) agitation, jittery Medication List - Last Reconciled 12/16/24 by Kalyani Benton MD clonazepam 1 mg PO TID PRN 30 days food supplemt, lactose-reduced (Ensure High Protein oral liquid) 1 ea PO BID 30 days methadone 100 mg PO DAILY methadone 85 mg PO QPM psyllium seed (sugar) (Metamucil (sugar) oral powder) 1 tbsp PO DAILY quetiapine (Seroquel) 50 mg PO BID 30 days Tobacco use date assessed: 11/09/24 Dental Screening Dental Screen Date: 09/15/24 HPI F/U Meds reschedule HPI Details Chief Complaint Request for medication management and discussion regarding cardiac status. History of Present Illness The patient is a 29-year-old female presenting with medication management for sever anxiety and depression and concerns and cardiac evaluation. Prolonged QT interval: - Prolonged QT interval identified, with ongoing evaluation through a Holter monitor and heart ultrasound planned. - Concerns raised due to current medicat ion regimen, including Methadone and Seroquel. - History of advised AED interventions t o reduce Methadone dosage and Seroquel intake to minimize cardiac risk. - Ongoing efforts to manage cardiac stat us through medication dose adjustments. Medication management: - Verified medication management related to Seroquel and Clonazepam. - Discussion about cutting down Seroque l to 50 mg once a day rather than twice a day - Addressed patient's request and subseq uent approval for Clonazepam refill due to depletion. Medical History: - Methadone use with noted concern regar ding cardiac implications. - Seroquel use for psychiatric condition management with an advised dose reduction. Diagnostic Results: - Pending heart ultrasound. - Pending Holter monitor evaluation. Problem List - Prolonged QT interval. - Medication management related to psych iatric conditions. Patient Instructions - Take Seroquel as prescribed at a reduc ed dosage. - Await upcoming heart ultrasound and Ho lter monitor evaluations. - Take Clonazepam as prescribed once ref illed. Review of Systems - General: No fever no chills - Neurological: No headaches no dizziness - Ear nose throat: No sore throat no hearing difficulty no ear pain - Cardiovascular: No syncope, no chest pain - Gastrointestinal: No nausea vomiting or diarrhea PFSH Medical History Tachycardia Seizures Sleep apnea Depression Fibromyalgia Suicidal ideation Methadone maintenance therapy patient Anxiety Endometriosis determined by laparoscopy Surgical History History of esophagogastroduodenoscopy (EGD) History of appendectomy History of laparoscopy Family History Father Substance use disorder Mental health disorder Mother Fibromyalgia Herniation of intervertebral disc of thoracic region Endometriosis Social History Household Members: Family and Children Household Members Other:: Mother, grandmother, and her son Housing: Apartment Are you a primary acute care clinical nurse specialist to a significant other at home: No Do you presently have visiting nurse or other home services: No Alcohol intake: current Alcohol intake frequency: does not drink Patient Tobacco Use Status: Former Tobacco user Tobacco use type: Cigarette Cigarettes Per Day: 2 Years Smoked: 10 years Packs per year/per ci.00 e-Cigarette/Vaping Use: Currently Using service: No Current occupational status: unemployed and disabled Cognitive needs: No Hearing needs: No Vision needs: No Questionnaire Thrive Questionnaire Date Thrive assessed: 06/01/24 SHEFALI-7 AMB Questionnaire SHEFALI-7 Date SHEFALI - 7 assessed: 06/01/24 Source: Developed by Drs. Jared Canela, Ayesha Cat, David Pedro and colleagues, with an educational adriel from [employer]. Physical exam (Primary Care) Tobacco/Smoking Status: Tobacco use Status Tobacco use date assessed 11/09/24 12/16/24 09:54 Patient Tobacco Use Status Former Tobacco user 12/16/24 09:54 Tobacco use type Cigarette 12/16/24 09:54 e-Cigarette/Vaping Use Currently Using 12/16/24 09:54 Thrive Assessment: Date of Thrive Assessment Date Thrive assessed 06/01/24 12/16/24 09:54 Telehealth Telehealth Telehealth Platform: [facility] Location of provider rendering services: practice address Location of patient: address on file Patient Identification confirmed using: Name, : Yes Telehealth method: video (attempted) Patient verbally consented to treatment: Yes Patient verbally consented to billing insurance company: Yes Patient informed of any privacy concerns related to visit: Yes Minutes spent on Phone/Video with Pt.: 13 Coding Level of Care Code Tele Est Pt Level 3 (94465) Diagnoses Panic anxiety syndrome F41.0 Severe episode of recurrent major depressive disorder, without psychotic features F33.2 Psychotic features: without psychotic features Bipolar disorder, in partial remission, most recent episode mixed F31.77 Active/Remission status: in partial remission Most recent bipolar episode type: mixed Methadone dependence F11.20 Tachycardia R00.0 Prolonged QT interval R94.31 Assessment & Plan Assessment & Plan (1) Panic anxiety syndrome: Code(s): F41.0 - Panic disorder [episodic paroxysmal anxiety] Category: Medical (2) Recurrent major depression-severe: Code(s): F33.2 - Major depressive disorder, recurrent severe without psychotic features Category: Medical Qualifiers: Psychotic features: without psychotic features Qualified Code(s): F33.2 - Major depressive disorder, recurrent severe without psychotic features (3) Bipolar disorder: Code(s): F31.9 - Bipolar disorder, unspecified Category: Medical Qualifiers: Active/Remission status: in partial remission Most recent bipolar e pisode type: mixed Qualified Code(s): F31.77 - Bipolar disorder, in partial remission, most recent episode mixed (4) Methadone dependence: Code(s): F11.20 - Opioid dependence, uncomplicated Category: Medical (5) Tachycardia: Code(s): R00.0 - Tachycardia, unspecified Category: Medical (6) Prolonged QT interval: Code(s): R94.31 - Abnormal electrocardiogram [ECG] [EKG] Category: Medical Plan Chief Complaint Request for medication management and discussion regarding cardiac status. History of Present Illness The patient is a 29-year-old female presenting with medication management for sever anxiety and depression and concerns and cardiac evaluation. Prolonged QT interval: - Prolonged QT interval identified, with ongoing evaluation through a Holter monitor and heart ultrasound planned. - Concerns raised due to current medication regimen, including Methadone and Seroquel. - History of advised AED interventions to reduce Methadone dosage and Seroquel intake to minimize cardiac risk. - Ongoing efforts to manage cardiac status through medication dose adjustments. Medication management: - Verified medication management related to Seroquel and Clonazepam. - Discussion about cutting down Seroquel to 50 mg once a day rather than twice a day - Addressed patient's request and subsequent approval for Clonazepam refill due to depletion. Medical History: - Methadone use with noted concern regarding cardiac implications. - Seroquel use for psychiatric condition management with an advised dose reduction. Diagnostic Results: - Pending heart ultrasound. - Pending Holter monitor evaluation. Problem List - Prolonged QT interval. - Medication management related to psychiatric conditions. Patient Instructions - Take Seroquel as prescribed at a reduced dosage. - Await upcoming heart ultrasound and Holter monitor evaluations. - Take Clonazepam as prescribed once refilled. Medications: Refilled clonazepam 1 mg PO TID PRN 90 tabs 0RF anxiety 30 days
== END 2024-12-16 10:01 | disposition home or self-care (01) ==
LOC: HO.HMCC 08:44
PROVIDERS: PCP Internal Medicine; Visit Provider Internal Medicine
DX: F41.0 Panic disorder [episodic paroxysmal anxiety] (principal); F31.77 Bipolar disorder, in partial remission, most recent episode mixed; F11.20 Opioid dependence, uncomplicated; R00.0 Tachycardia, unspecified; R94.31 Abnormal electrocardiogram [ECG] [EKG]

== ENCOUNTER 2025-01-20 08:14 | Outpatient (AMB) | payer OTHER, SELFPAY ==
--- OUTSIDE RECORDS SUMMARY | 2025-01-20 09:06 | XMS_ITS | Clinical Summary ---
Author Organization [facility] Address [address] [place] [address] Phone Care Team Providers Care System Administration Manager Name Role Phone Physician, Pcp Unknown Primary [...] 04/09/2022 Social Influencers of Health Screening 04/09/2022 Depression Screening 05/12/2024 COVID-19 Vaccine ( season) 2025 Influenza Vaccine (#1) 2025 04/10/2011, 2008 DTaP,Tdap,and [...] patient's age to complete this topic Insurance [facility] MEDIC[facility] Member Subscriber Plan / Payer (Ef fective 2020-Present) Name:Haley Garcia Relation to Subscriber:Self Name:Haley Garcia Payer ID:[id number] Group ID:[id number] Type:Not on file Address: [facility] [address] [phone] Care Teams System Administration Manager Relationship Specialty Start Date End Date Physician, Pcp Unknown PCP - General 06/16/24
--- OUTSIDE RECORDS SUMMARY | 2025-01-20 09:06 | XMS_ITS | Clinical Summary ---
Author Organization [facility] Address [address] [place] [address] Care Team Providers Care Product Support Specialist Name Role Phone Unavailable Primary Care Provider [...]
--- NOTE | 2025-01-20 09:58 | A.OFFPC_ITS ---
Intake Visit Reasons: med review Allergies prochlorperazine (From COMPAZINE) Allergy (Severe, Verified 11/09/24 09:37) AGITATION tramadol (TRAMADOL) Allergy (Intermediate, Verified 11/09/24 09:37) SEIZURES Compazine Allergy (Unknown, Verified 11/09/24 09:37) agitation, jittery Medication List - Last Reconciled 01/20/25 by Kalyani Benton MD clonazepam 1 mg PO TID PRN 30 days food supplemt, lactose-reduced (Ensure High Protein oral liquid) 1 ea PO BID 30 days methadone 100 mg PO DAILY methadone 85 mg PO QPM psyllium seed (sugar) (Metamucil (sugar) oral powder) 1 tbsp PO DAILY quetiapine (Seroquel) 50 mg PO BID 30 days Tobacco use date assessed: 11/09/24 Dental Screening Dental Screen Date: 09/15/24 HPI med review HPI Details History of Present Illness The patient is a 29-year-old female presenting with severe bloating, gas, nausea, and upper abdominal pain. Gastrointestinal Symptoms: - Symptoms include nausea, severe bloati ng, gas, upper abdominal pain, and sensation of gas extending to the chest and left shoulder. - Symptoms started recently and have bee n present since the last month. - Associated with eating; patient feels severely bloated after consuming any type of food. - Describes pain as sharp and has noted that these symptoms are extensive, affecting daily life. - Noted a specific incident where the up per abdomen was extremely bloated, accompanied by sharp pains. - There is no association with burping, but there is excessive passage of gas. . Medical History: - Severe Anxiety - Depression - Difficulty Sleeping at Night - Palpitations - Prolonged QT Interval - Bipolar Disorder - Post-Traumatic Stress Disorder (PTSD) - Bleeding Hemorrhoids Medications: - Clonazepam 1 mg TID for anxiety - Quetiapine (Seroquel) 50 mg BID for bi polar disorder - Methadone for an unspecified condition Problem List - Gastrointestinal symptoms (severe bloa ting, gas, nausea, upper abdominal pain) - Severe Anxiety - Depression - Difficulty Sleeping - Prolonged QT Interval - Bipolar Disorder - Post-Traumatic Stress Disorder (PTSD) - Bleeding Hemorrhoids Patient Instructions - Keep a food diary to track what aggrav ates the symptoms. - Await the appointment with the colorec alvaro surgeon for further evaluation. - Follow up with new medications for blo ating and gas as they are sent. Simithicon Review of Systems - General: No fever no chills - Neurological: No headaches - Ear nose throat: No sore throat no hearing difficulty no ear pain - Cardiovascular: No syncope PFSH Medical History Tachycardia Seizures Sleep apnea Depression Fibromyalgia Suicidal ideation Methadone maintenance therapy patient Anxiety Endometriosis determined by laparoscopy Surgical History History of esophagogastroduodenoscopy (EGD) History of appendectomy History of laparoscopy Family History Father Substance use disorder Mental health disorder Mother Fibromyalgia Herniation of intervertebral disc of thoracic region Endometriosis Social History Household Members: Family and Children Household Members Other:: Mother, grandmother, and her son Housing: Apartment Are you a primary ocular care technician to a significant other at home: No Do you presently have visiting nurse or other home services: No Alcohol intake: current Alcohol intake frequency: does not drink Patient Tobacco Use Status: Former Tobacco user Tobacco use type: Cigarette Cigarettes Per Day: 2 Years Smoked: 10 years e-Cigarette/Vaping Use: Currently Using service: No Current occupational status: unemployed and disabled Cognitive needs: No Hearing needs: No Vision needs: No Questionnaire Thrive Questionnaire Date Thrive assessed: 06/01/24 SHEFALI-7 AMB Questionnaire SHEFALI-7 Date SHEFALI - 7 assessed: 06/01/24 Source: Developed by Drs. Jared Canela, Ayesha Cat, David Pedro and colleagues, with an educational adriel from [email or web address]. Physical exam (Primary Care) Tobacco/Smoking Status: Tobacco use Status Tobacco use date assessed 11/09/24 01/20/25 09:58 Patient Tobacco Use Status Former Tobacco user 01/20/25 09:58 Tobacco use type Cigarette 01/20/25 09:58 e-Cigarette/Vaping Use Currently Using 01/20/25 09:58 Thrive Assessment: Date of Thrive Assessment Date Thrive assessed 06/01/24 01/20/25 09:58 Telehealth Telehealth [facility]health [facility] Location of provider rendering services: practice address Location of patient: address on file Patient Identification confirmed using: Name, : Yes Telehealth method: video Patient verbally consented to treatment: Yes Patient verbally consented to billing insurance company: Yes Patient informed of any privacy concerns related to visit: Yes Minutes spent on Phone/Video with Pt.: 30 Coding Level of Care Code Tele Est Pt Level 4 (14139) Diagnoses Abdominal bloating R14.0 Panic anxiety syndrome F41.0 Severe episode of recurrent major depressive disorder, without psychotic features F33.2 Psychotic features: without psychotic features Bipolar disorder, in partial remission, most recent episode mixed F31.77 Active/Remission status: in partial remission Most recent bipolar episode type: mixed Methadone dependence F11.20 Tachycardia R00.0 Prolonged QT interval R94.31 Time Spent (min) 30 Comment complex patient, review chart/labs, coordination of care Assessment & Plan Assessment & Plan (1) Abdominal bloating: Code(s): R14.0 - Abdominal distension (gaseous) Category: Medical (2) Panic anxiety syndrome: Code(s): F41.0 - Panic disorder [episodic paroxysmal anxiety] Category: Medical (3) Recurrent major depression-severe: Code(s): F33.2 - Major depressive disorder, recurrent severe without psychotic features Category: Medical Qualifiers: Psychotic features: without psychotic features Qualified Code(s): F33.2 - Major depressive disorder, recurrent severe without psychotic features (4) Bipolar disorder: Code(s): F31.9 - Bipolar disorder, unspecified Category: Medical Qualifiers: Active/Remission status: in partial remission Most recent bipolar episode type: mixed Qualified Code(s): F31.77 - Bipolar disorder, in partial remission, most recent episode mixed (5) Methadone dependence: Code(s): F11.20 - Opioid dependence, uncomplicated Category: Medical (6) Tachycardia: Code(s): R00.0 - Tachycardia, unspecified Category: Medical (7) Prolonged QT interval: Code(s): R94.31 - Abnormal electrocardiogram [ECG] [EKG] Category: Medical Plan History of Present Illness The patient is a 29-year-old female presenting with severe bloating, gas, nausea, and upper abdominal pain. Gastrointestinal Symptoms: - Symptoms include nausea, severe bloating, gas, upper abdominal pain, and sensation of gas extending to the chest and left shoulder. - Symptoms started recently and have been present since the last month. - Associated with eating; patient feels severely bloated after consuming any type of food. - Describes pain as sharp and has noted that these symptoms are extensive, affecting daily life. - Noted a specific incident where the upper abdomen was extremely bloated, accompanied by sharp pains. - There is no association with burping, but there is excessive passage of gas. . Medical History: - Severe Anxiety - Depression - Difficulty Sleeping at Night - Palpitations - Prolonged QT Interval - Bipolar Disorder - Post-Traumatic Stress Disorder (PTSD) - Bleeding Hemorrhoids Medications: - Clonazepam 1 mg TID for anxiety - Quetiapine (Seroquel) 50 mg BID for bipolar disorder - Methadone for an unspecified condition Problem List - Gastrointestinal symptoms (severe bloating, gas, nausea, upper abdominal pain) - Severe Anxiety - Depression - Difficulty Sleeping - Prolonged QT Interval - Bipolar Disorder - Post-Traumatic Stress Disorder (PTSD) - Bleeding Hemorrhoids Patient Instructions - Keep a food diary to track what aggravates the symptoms. - Await the appointment with the colorectal surgeon for further evaluation. - Follow up with new medications for bloating and gas as they are sent. Simithicon Medications: New Saccharomyces boulardii (Digest Probiotic (S.boulardii)) 250 mg PO BID 30 caps 0RF digestive aid simethicone (Gas Relief (simethicone)) 125 mg PO TID PRN 90 tabs 0RF abdominal distention 30 days Refilled clonazepam 1 mg PO TID PRN 90 tabs 0RF anxiety 30 days quetiapine (Seroquel) 50 mg PO BID 60 tabs 0RF anxiety 30 days
== END 2025-01-20 11:08 | disposition home or self-care (01) ==
LOC: HO.HMCC 08:14
PROVIDERS: PCP Internal Medicine; Visit Provider Internal Medicine
DX: R14.0 Abdominal distension (gaseous) (principal); F31.77 Bipolar disorder, in partial remission, most recent episode mixed; F11.20 Opioid dependence, uncomplicated; F41.0 Panic disorder [episodic paroxysmal anxiety]; R00.0 Tachycardia, unspecified; R94.31 Abnormal electrocardiogram [ECG] [EKG]

== ENCOUNTER → 2025-01-21 07:53 | Outpatient (REF) | payer OTHER, SELFPAY ==
--- NOTE | 2025-01-21 07:56 | HM_ITS ---
Conclusion: 1. Patient was monitored for total period of 3 days 2. Baseline was normal sinus rhythm with average heart of 74 beats per minute 3. No significant arrhythmias or pauses noted 4. Patient marked the counter 1 time without reporting any symptoms correlating with sinus rhythm MTDD
--- NOTE | 2025-01-21 07:56 | CA_ITS ---
Transthoracic Echocardiogram Patient (Last, First, Middle): Haley Garcia, Gender: Female Date of : 1995 Age: 29 Procedure Date: 01/21/2025 Procedure Type: Transthoracic Echocardiogram Location: OP Height: 160.02 cm Weight: 45.36 kg BSA: 1.44 m2 Heart Rate: 74 bpm BP: 98 / 62 mmHg Healthcare Business Analyst: TO Referring MD: Issa Lobato MD Motor Bus Driver: Toñito Rey MD Symptoms: R00.2 - Palpitations Study Quality: Adequate ECG Rhythm: Sinus Conclusions: - Normal study Findings Left Ventricle Normal left ventricular size, thickness, and systolic function. The visually estimated ejection fraction is between 60-65%. Diastolic function is normal for age. Peak GLS is -21.7%, within normal limits Right Ventricle Normal right ventricular cavity size and systolic function. Atria Both atria are normal in size. There is no evidence of interatrial shunt. Aortic Valve Normal aortic valve structure and function. There is no aortic valve stenosis. There is no aortic valve regurgitation. Mitral Valve Normal mitral valve structure and function. There is no mitral valve regurgitation. There is no mitral valve stenosis. Pulmonic Valve The pulmonic valve is likely normal. Tricuspid Valve Normal tricuspid valve structure. There is trace tricuspid valve regurgitation. The right ventricular systolic pressure is normal. The right ventricular systolic pressure is 20 mmHg. Normal right atrial pressure. There is no evidence of pulmonary hypertension. Great Vessels All visible segments of the aorta are normal in size. The visualized portions of the pulmonary artery and branches are normal. Venous The inferior vena cava is normal in size and collapses greater than 50% with inspiration. Pericardium/Pleural There is no evidence of pericardial effusion. Measurements 2D Linear Measurements IVSd: 0.53 0.6-0.9/0.6-1.0 cm LVIDd: 4.34 3.9-5.3/4.2-5.9 cm LVIDd Index: 3.01 2.4-3.2/2.2-3.1 cm/m2 LVIDs: 3.06 2.0-3.6 cm LVPWd: 0.58 0.7-1.1 cm LA Diam: 2.90 2.7-3.8/3.0-4.0 cm LAIDs Index: 2.01 1.5-2.3 cm/m2 LV Mass: 83.71 67-162/88-224 g LV Mass Index: 58.13 43-95/49-115 g/m2 LVOT Diam: 2.00 3.0+(-)1.3 cm 2D Systolic Function EF 4C: 61.00 >55% EF 2C: 66.30 >55% EF BiP: 63.50 >55% Mitral Valve MV Pk E: 0.72 MV PK A: 0.39 MV Decel Time: 168.00 E/A: 1.90 E'Lateral: 15.00 E'Medial: 13.10 E/E' Med: 5.50 E/E' Lat: 4.80 PHT: 49.00 MVA PHT: 4.49 Decel [place]: 4.32 Aortic Valve AoV Pk Chris: 1.19 AoV Mn Chris: 0.87 AoV VTI: 0.26 AoV Pk Grad: 6.00 Aov Mn Grad: 3.00 SHEILA Cont.VTI: 2.20 LVOT LVOT Pk Chris: 0.96 LVOT Mn Chris: 0.65 LVOT VTI: 0.18 LVOT Pk Grad: 4.00 LVOT Mn Grad: 2.00 LVOT Diam: 2.00 LVOT Area: 3.14 Diastolic Function MV Pk E: 0.72 MV Pk A: 0.39 E/A: 1.90 E'Medial: 13.10 E/E' Med: 5.50 E' Laterial: 15.00 E/E' Lat: 4.80 Right Ventricle TAPSE (mm): 23.70 TVS' Chris: 11.70 Tricuspid Valve TR Pk Chris: 2.09 TR Pk Grad: 17.00 RA Press: 3.00 RVSP: 20.00 Great Vessels Aorta Sinus of Valsalva: 2.70 2.0-3.5 cm Ao Asc: 2.70 2.1-3.4 cm Updated in Other Vendor System with Status of Final Toñito Rey MD electronically signed on 01/21/2025 3:24:26 PM with status of Final
--- OUTSIDE RECORDS SUMMARY | 2025-01-21 07:57 | XMS_ITS | Clinical Summary ---
Author Organization [facility] Address [address] [place] [address] Care Team Providers Care Bill Cutter Name Role Phone Unavailable Primary Care Provider [...]
--- OUTSIDE RECORDS SUMMARY | 2025-01-21 07:57 | XMS_ITS | Clinical Summary ---
Author Organization [facility] Address [address] [place] [address] Phone Care Team Providers Care Taxation Accountant Name Role Phone Physician, Pcp Unknown Primary Care Provider Asai vailable Allergies Active Allergy Reactions Criticality Noted [...] patient's age to complete this topic Insurance [facility] MEDIC[facility] Member Subscriber Plan / Payer (Ef fective 2020-Present) Name:Haley Garcia Relation to Subscriber:Self Name:Haley Garcia Payer ID:[id number] Group ID:[id number] Type:Not on file Address: [facility] [address] [phone] Care Teams Taxation Accountant Relationship Specialty Start Date End Date Physician, Pcp Unknown PCP - General 06/16/24
== END ==
LOC: HO.CARD 07:53
PROVIDERS: PCP Internal Medicine; Visit Provider Internal Medicine
DX: R00.2 Palpitations (principal)
CPT/HCPCS: 93242; 93306

== ENCOUNTER → 2025-01-21 07:56 | Outpatient (BNV) | payer OTHER, SELFPAY | PROVIDERS: PCP Internal Medicine; Visit Provider Internal Medicine Cardiovascular Disease | DX: R00.2 Palpitations (principal) | CPT/HCPCS: 93306 ==

== ENCOUNTER 2025-02-17 08:52 | Outpatient (AMB) | payer OTHER, SELFPAY ==
--- NOTE | 2025-02-17 09:07 | MHC.PC.OV ---
Intake Visit Reasons: med refill Allergies prochlorperazine (From COMPAZINE) Allergy (Severe, Verified 11/09/24 09:37) AGITATION tramadol (TRAMADOL) Allergy (Intermediate, Verified 11/09/24 09:37) SEIZURES Compazine Allergy (Unknown, Verified 11/09/24 09:37) agitation, jittery Medication List - Last Reconciled 02/17/25 by Kalyani Benton MD clonazepam 1 mg PO TID PRN 30 days food supplemt, lactose-reduced (Ensure High Protein oral liquid) 1 ea PO BID 30 days methadone 100 mg PO DAILY methadone 85 mg PO QPM psyllium seed (sugar) (Metamucil (sugar) oral powder) 1 tbsp PO DAILY quetiapine (Seroquel) 50 mg PO BID 30 days Saccharomyces boulardii (Digest Probiotic (S.boulardii)) 250 mg PO BID simethicone (Gas Relief (simethicone)) 125 mg PO TID PRN 30 days Tobacco use date assessed: 11/09/24 Dental Screening Dental Screen Date: 09/15/24 HPI med refill HPI Details History of Present Illness The patient is a 29-year-old female presenting with medication refill and management discussion. QT Interval Prolongation: - The patient has been identified to have prolonged QT intervals on previous EKG testing. - They are under the care of a medical operations supervisor and have been evaluated with a Holter monitor - A cardiac ultrasound was also performed and showed normal findings. - Medication adjustments were made to manage QT interval prolongation, specifically reducing the dosage of methadone. Severe Depression and Anxiety: - Ongoing treatment includes clonazepam and quetiapine. - The patient reports stability in their condition with current medication regimen. - They express a positive emotional change following weight gain, which has improved self-image. Medications: - Quetiapine, 50 mg, used to manage severe depression and anxiety. - Methadone, currently at 85 mg at night and 90 mg in the morning, with adjustments aimed at managing QT interval prolongation. - Clonazepam, requires refill, used to manage severe anxiety. Problem List - QT Interval Prolongation - Tachycardia - Severe Depression - Anxiety Plan - Continue current cardiac monitoring with the medical operations supervisor for QT interval prolongation and tachycardia. - Methadone dosing will be adjusted to manage prolonged QT, with a plan to taper the night dose and adjust the day dose accordingly. - clonazepam prescription is sent - Monitor and continue the current dosage of quetiapine at 50 mg, as it has been effective in managing severe depression and anxiety. - Follow up one month. Review of Systems - General: No fever no chills - Neurological: No headaches no dizziness - Ear nose throat: No sore throat no hearing difficulty no ear pain - Cardiovascular: No syncope, no chest pain - Gastrointestinal: No nausea vomiting or diarrhea PFSH Medical History Tachycardia Seizures Sleep apnea Depression Fibromyalgia Suicidal ideation Methadone maintenance therapy patient Anxiety Endometriosis determined by laparoscopy Surgical History History of esophagogastroduodenoscopy (EGD) History of appendectomy History of laparoscopy Family History Father Substance use disorder Mental health disorder Mother Fibromyalgia Herniation of intervertebral disc of thoracic region Endometriosis Social History Household Members: Family and Children Household Members Other:: Mother, grandmother, and her son Housing: Apartment Are you a primary hemodialysis patient care specialist to a significant other at home: No Do you presently have visiting nurse or other home services: No Alcohol intake: current Alcohol intake frequency: does not drink Patient Tobacco Use Status: Former Tobacco user Tobacco use type: Cigarette Cigarettes Per Day: 2 Years Smoked: 10 years e-Cigarette/Vaping Use: Currently Using service: No Current occupational status: unemployed and disabled Cognitive needs: No Hearing needs: No Vision needs: No Questionnaire Thrive Questionnaire Date Thrive assessed: 06/01/24 SHEFALI-7 AMB Questionnaire SHEFALI-7 Date SHEFALI - 7 assessed: 06/01/24 Source: Developed by Drs. Jared Canela, Ayesha Cat, David Pedro and colleagues, with an educational adriel from [employer]. Physical exam (Primary Care) Tobacco/Smoking Status: Tobacco use Status Tobacco use date assessed 11/09/24 02/17/25 09:09 Patient Tobacco Use Status Former Tobacco user 02/17/25 09:09 Tobacco use type Cigarette 02/17/25 09:09 e-Cigarette/Vaping Use Currently Using 02/17/25 09:09 Thrive Assessment: Date of Thrive Assessment Date Thrive assessed 06/01/24 02/17/25 09:09 Telehealth Telehealth Telehealth Platform: [employer] Location of provider rendering services: practice address Location of patient: address on file Patient Identification confirmed using: Name, : Yes Telehealth method: video Patient verbally consented to treatment: Yes Patient verbally consented to billing insurance company: Yes Patient informed of any privacy concerns related to visit: Yes Minutes spent on Phone/Video with Pt.: 13 Coding Level of Care Code Tele Est Pt Level 3 (56180) Diagnoses Panic anxiety syndrome F41.0 Severe episode of recurrent major depressive disorder, without psychotic features F33.2 Psychotic features: without psychotic features Bipolar disorder, in partial remission, most recent episode mixed F31.77 Active/Remission status: in partial remission Most recent bipolar episode type: mixed Methadone dependence F11.20 Tachycardia R00.0 Prolonged QT interval R94.31 Assessment & Plan Assessment & Plan (1) Panic anxiety syndrome: Code(s): F41.0 - Panic disorder [episodic paroxysmal anxiety] Category: Medical (2) Recurrent major depression-severe: Code(s): F33.2 - Major depressive disorder, recurrent severe without psychotic features Category: Medical Qualifiers: Psychotic features: without psychotic features Qualified Code(s): F33.2 - Major depressive disorder, recurrent severe without psychotic features (3) Bipolar disorder: Code(s): F31.9 - Bipolar disorder, unspecified Category: Medical Qualifiers: Active/Remission status: in partial remission Most recent bipolar episode type: mixed Qualified Code(s): F31.77 - Bipolar disorder, in partial remission, most recent episode mixed (4) Methadone dependence: Code(s): F11.20 - Opioid dependence, uncomplicated Category: Medical (5) Tachycardia: Code(s): R00.0 - Tachycardia, unspecified Category: Medical (6) Prolonged QT interval: Code(s): R94.31 - Abnormal electrocardiogram [ECG] [EKG] Category: Medical Plan History of Present Illness The patient is a 29-year-old female presenting with medication refill and management discussion. QT Interval Prolongation: - The patient has been identified to have prolonged QT intervals on previous EKG testing. - They are under the care of a medical operations supervisor and have been evaluated with a Holter monitor - A cardiac ultrasound was also performed and showed normal findings. - Medication adjustments were made to manage QT interval prolongation, specifically reducing the dosage of methadone. Severe Depression and Anxiety: - Ongoing treatment includes clonazepam and quetiapine. - The patient reports stability in their condition with current medication regimen. - They express a positive emotional change following weight gain, which has improved self-image. Medications: - Quetiapine, 50 mg, used to manage severe depression and anxiety. - Methadone, currently at 85 mg at night and 90 mg in the morning, with adjustments aimed at managing QT interval prolongation. - Clonazepam, requires refill, used to manage severe anxiety. Problem List - QT Interval Prolongation - Tachycardia - Severe Depression - Anxiety Plan - Continue current cardiac monitoring with the medical operations supervisor for QT interval prolongation and tachycardia. - Methadone dosing will be adjusted to manage prolonged QT, with a plan to taper the night dose and adjust the day dose accordingly. - clonazepam prescription is sent - Monitor and continue the current dosage of quetiapine at 50 mg, as it has been effective in managing severe depression and anxiety. - Follow up one month. Medications: Refilled clonazepam 1 mg PO TID PRN 90 tabs 0RF anxiety 30 days
== END 2025-02-17 11:40 | disposition home or self-care (01) ==
LOC: HO.HMCC 08:53
PROVIDERS: PCP Internal Medicine; Visit Provider Internal Medicine
DX: F41.0 Panic disorder [episodic paroxysmal anxiety] (principal); F33.2 Major depressive disorder, recurrent severe without psychotic features; F31.77 Bipolar disorder, in partial remission, most recent episode mixed; F11.20 Opioid dependence, uncomplicated; R00.0 Tachycardia, unspecified; R94.31 Abnormal electrocardiogram [ECG] [EKG]

== ENCOUNTER 2025-03-17 08:43 | Outpatient (AMB) | payer OTHER, SELFPAY ==
--- NOTE | 2025-03-17 08:47 | MHC.PC.OV ---
Intake Visit Reasons: med follow up Allergies prochlorperazine (From COMPAZINE) Allergy (Severe, Verified 11/09/24 09:37) AGITATION tramadol (TRAMADOL) Allergy (Intermediate, Verified 11/09/24 09:37) SEIZURES Compazine Allergy (Unknown, Verified 11/09/24 09:37) agitation, jittery Medication List - Last Reconciled 03/17/25 by Kalyani Benton MD clonazepam 1 mg PO TID PRN 30 days food supplemt, lactose-reduced (Ensure High Protein oral liquid) 1 ea PO BID 30 days methadone 100 mg PO DAILY methadone 85 mg PO QPM psyllium seed (sugar) (Metamucil (sugar) oral powder) 1 tbsp PO DAILY quetiapine (Seroquel) 50 mg PO BID 30 days Saccharomyces boulardii (Digest Probiotic (S.boulardii)) 250 mg PO BID simethicone (Gas Relief (simethicone)) 125 mg PO TID PRN 30 days Tobacco use date assessed: 11/09/24 Dental Screening Dental Screen Date: 09/15/24 HPI med follow up HPI Details TeleMed visit to fill meds Patient sufferes from sever anxiety and depression also have history of substance abuse currently taking 50 mg of Methadon her QT interval was high so seroqual was cut down to once a day 50 mg she is also taking Clonzepam for anxiety 1 mg tid she tells me she had EKG done at [facility] recently and her QT interval is normal now she visit them once a month, and will have them fax it over to me next time she goes there her 2 meds sent she is still looking for Psych med prescriber [facility] Medical History Tachycardia Seizures Sleep apnea Depression Fibromyalgia Suicidal ideation Methadone maintenance therapy patient Anxiety Endometriosis determined by laparoscopy Surgical History History of esophagogastroduodenoscopy (EGD) History of appendectomy History of laparoscopy Family History Father Substance use disorder Mental health disorder Mother Fibromyalgia Herniation of intervertebral disc of thoracic region Endometriosis Social History Household Members: Family and Children Household Members Other:: Mother, grandmother, and her son Housing: Apartment Are you a primary hospice care transitions coordinator to a significant other at home: No Do you presently have visiting nurse or other home services: No Alcohol intake: current Alcohol intake frequency: does not drink Patient Tobacco Use Status: Former Tobacco user Tobacco use type: Cigarette Cigarettes Per Day: 2 Years Smoked: 10 years e-Cigarette/Vaping Use: Currently Using service: No Current occupational status: unemployed and disabled Cognitive needs: No Hearing needs: No Vision needs: No Questionnaire Thrive Questionnaire Date Thrive assessed: 06/01/24 I am a: Patient What is your living situation today?: I have a steady place to live Within the past 12 months, did the food you bought not last and you didn't have the money to get more?: I choose not to answer this question Within the past 12 months, did you worry whether your food would run out before you got money to buy more?: I choose not to answer this question Do you have trouble paying for medicines?: I choose not to answer this question Do you have trouble getting transportation to medical appointments?: I choose not to answer this question Do you have trouble paying your heating and electricity bill?: I choose not to answer this question Do you have trouble taking care of your child, family member or friend?: Yes Do you have trouble with day-to-day activities such as bathing, preparing meals, shopping, managing finances, etc.?: Yes Are you currently unemployed and looking for a job?: No Are you interested in more education?: No Please select the resources that you would like help with: None THRIVE Score: 0 SHEFALI-7 AMB Questionnaire SHEFALI-7 Date SHEFALI - 7 assessed: 06/01/24 Source: Developed by Drs. Jared Canela, Ayesha Cat, David Pedro and colleagues, with an educational adriel from [employer]. Physical exam (Primary Care) Tobacco/Smoking Status: Tobacco use Status Tobacco use date assessed 11/09/24 02/17/25 09:09 Patient Tobacco Use Status Former Tobacco user 02/17/25 09:09 Tobacco use type Cigarette 02/17/25 09:09 e-Cigarette/Vaping Use Currently Using 02/17/25 09:09 Thrive Assessment: Date of Thrive Assessment Date Thrive assessed 06/01/24 02/17/25 09:09 Telehealth Telehealth Telehealth Platform: [employer] Location of provider rendering services: practice address Location of patient: address on file Patient Identification confirmed using: Name, : Yes Telehealth method: voice only Patient verbally consented to treatment: Yes Patient verbally consented to billing insurance company: Yes Patient informed of any privacy concerns related to visit: Yes Minutes spent on Phone/Video with Pt.: 12 Coding Level of Care Code Tele Est Pt Level 3 (08401) Diagnoses Panic anxiety syndrome F41.0 Severe episode of recurrent major depressive disorder, without psychotic features F33.2 Psychotic features: without psychotic features Bipolar disorder, in partial remission, most recent episode mixed F31.77 Active/Remission status: in partial remission Most recent bipolar episode type: mixed Methadone dependence F11.20 Assessment & Plan Assessment & Plan (1) Panic anxiety syndrome: Code(s): F41.0 - Panic disorder [episodic paroxysmal anxiety] Category: Medical (2) Recurrent major depression-severe: Code(s): F33.2 - Major depressive disorder, recurrent severe without psychotic features Category: Medical Qualifiers: Psychotic features: without psychotic features Qualified Code(s): F33.2 - Major depressive disorder, recurrent severe without psychotic features (3) Bipolar disorder: Code(s): F31.9 - Bipolar disorder, unspecified Category: Medical Qualifiers: Active/Remission status: in partial remission Most recent bipolar episode type: mixed Qualified Code(s): F31.77 - Bipolar disorder, in partial remission, most recent episode mixed (4) Methadone dependence: Code(s): F11.20 - Opioid dependence, uncomplicated Category: Medical Plan TeleMed visit to fill meds Patient sufferes from sever anxiety and depression also have history of substance abuse currently taking 50 mg of Methadon her QT interval was high so seroqual was cut down to once a day 50 mg she is also taking Clonzepam for anxiety 1 mg tid she tells me she had EKG done at [facility] clinic recently and her QT interval is normal now she visit them once a month, and will have them fax it over to me next time she goes there her 2 meds sent she is still looking for Psych med prescriber Medications: Changed From quetiapine (Seroquel) 50 mg PO BID 30 days 60 tabs 0RF anxiety To quetiapine (Seroquel) 50 mg PO .qd 30 tabs 0RF anxiety 30 days Refilled clonazepam 1 mg PO TID PRN 90 tabs 0RF anxiety 30 days
--- OUTSIDE RECORDS SUMMARY | 2025-03-17 09:15 | XMS_ITS | Clinical Summary ---
Author Organization [facility] Address [address] [place] [address] Care Team Providers Care Marketing Development Manager Name Role Phone Unavailable Primary Care [...]
--- OUTSIDE RECORDS SUMMARY | 2025-03-17 09:15 | XMS_ITS | Clinical Summary ---
Author Organization [facility] Address [address] [place] [address] Phone Care Team Providers Care Environmental Research Project Manager Name Role Phone Physician, Pcp Unknown [...] 06/12/2033 06/12/2023, 2000, 03/31/1997, Additional history exists RSV Immunization Adult Patients (1 - 1-dose 75+ series) 09/29/2070 Hepatitis B Vaccines Completed 07/05/1996, 1995, 1995 [...] to complete this topic Insurance [facility] MEDICARE Member Subscriber Plan / Payer (Ef fective 2020-Present) Name:Haley Garcia Relation to Subscriber:Self Name:Haley Garcia Payer ID:[id number] Group ID:[id number] Type:Not on file Address: [address] [id number] Care Teams Environmental Research Project Manager Relationship Specialty Start Date End Date Physician, Pcp Unknown PCP - General 06/16/24
== END 2025-03-17 11:48 | disposition home or self-care (01) ==
LOC: HO.HMCC 08:44
PROVIDERS: PCP Internal Medicine; Visit Provider Internal Medicine
DX: F41.0 Panic disorder [episodic paroxysmal anxiety] (principal); F33.2 Major depressive disorder, recurrent severe without psychotic features; F31.77 Bipolar disorder, in partial remission, most recent episode mixed; F11.20 Opioid dependence, uncomplicated

== ENCOUNTER 2025-04-29 13:54 | Outpatient (AMB) | payer OTHER, SELFPAY ==
[2025-04-29 14:00] VITALS: BP 120/74; PULSE 78; O2SAT 98; BMI 19.2
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
--- OUTSIDE RECORDS SUMMARY | 2025-04-29 15:35 | XMS_ITS | Clinical Summary ---
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 Phone Physician, Pcp Unknown Primary [...] on file Sexual Orientation Not on file Last Filed Vital Signs Vital Sign Reading [...] Health Maintenance Due Date Last Done Comments Drug Screen 1995 Non-Opioid Controlled Substance Agreement 1995 Hepatitis A Vaccines (1 of 2 - [...] patient's age to complete this topic Insurance [facility] MEDICARE Member Subscriber Plan / Payer (Ef fective 2020-Present) Name:Haley Garcia Relation to Subscriber:Self Name:Haley Garcia Payer ID:[id number] Group ID:[id number] Type:Not on file Address: [facility] [address] [phone] Care Teams 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
--- OUTSIDE RECORDS SUMMARY | 2025-04-29 15:35 | XMS_ITS | Clinical Summary ---
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
== END 2025-04-29 14:31 | disposition home or self-care (01) ==
LOC: HO.HMCC 13:55
PROVIDERS: PCP Internal Medicine; Visit Provider Internal Medicine
DX: F41.0 Panic disorder [episodic paroxysmal anxiety] (principal); F33.2 Major depressive disorder, recurrent severe without psychotic features; F31.77 Bipolar disorder, in partial remission, most recent episode mixed; F11.20 Opioid dependence, uncomplicated

== ENCOUNTER → 2025-04-29 13:54 | Outpatient (BNVA) | payer OTHER, SELFPAY | PROVIDERS: PCP Internal Medicine; Visit Provider Internal Medicine | DX: F41.0 Panic disorder [episodic paroxysmal anxiety] (principal); F41.9 Anxiety disorder, unspecified; F31.77 Bipolar disorder, in partial remission, most recent episode mixed; F11.20 Opioid dependence, uncomplicated | CPT/HCPCS: 99212 ==